=== PATIENT | male | born 1945 | race Caucasian/White ===

== ENCOUNTER → 2017-09-10 | Outpatient (CLI) | payer OTHER ==
[~2017-09-10] MED LIST: CIPR-255 PO; FLM4 PO; OMEP10CA2 PO
[2017-09-10 17:31] LABS: BASO % 0.2 %; BASO ABS # 0.02 K/uL (0-0.2); COMPLETE YES; EOS % 1.8 %; HEMATOCRIT 39.3 % (42-52); IG% 0.1 %; LYMPH % 22.1 %; LYMPH ABS # 1.88 K/uL (1.2-3.4); MEAN CELL VOLUME 87.1 fL (80-100); MEAN CORPUSCULAR HEMOGLOBIN 30.8 pg (25-34); MEAN CORPUSCULAR HGB CONC 35.4 g/dl (32-36); MEAN PLATELET VOLUME 9.1 fL (7.4-10.4); MONO % 7.9 %; NEUT % 67.9 %; PLATELET COUNT 299 K/uL (130-400); RED BLOOD COUNT 4.51 M/uL (4.7-6.1); WHITE BLOOD COUNT 8.51 K/uL (4.8-10.8)
[2017-09-10 17:51] LABS: ALT/SGPT 75 U/L (12-78); AST/SGOT 51 U/L (15-37); BLOOD UREA NITROGEN 15 mg/dl (7-18); BUN/CREATININE RATIO 19.5 (10-20); CALCIUM 8.7 mg/dl (8.5-10.1); CARBON DIOXIDE 27 mmol/L (21-32); CHLORIDE 104 mmol/L (98-107); CREATININE 0.76 mg/dl (0.60-1.40); GLUCOSE 105 mg/dl (70-99); POTASSIUM 3.9 mmol/L (3.5-5.1); SODIUM 138 mmol/L (136-145)
[2017-09-10 18:08] LABS: ALB/GLOB RATIO 0.8 (0.9-2); ALKALINE PHOSPHATASE 387 U/L (45-117); CHOLESTEROL 162 mg/dl (0-200); CHOLESTEROL/HDL RATIO 4.8; HDL CHOLESTEROL 34 mg/dl; LDL CHOLESTEROL CALCULATED 102 mg/dl; TRIGLYCERIDES 132 mg/dl (0-150); VERY LOW DENSITY LIPOPROT CALC 26 mg/dl
== END | disposition home or self-care (01) ==
LOC: C.LAB1850 17:15
PROVIDERS: ATTEND Internal Medicine
DX: R97.20 Elevated prostate specific antigen [PSA] (principal); I10 Essential (primary) hypertension; Z11.59 Encounter for screening for other viral diseases; E78.1 Pure hyperglyceridemia

== ENCOUNTER → 2017-09-15 | Outpatient (CLI) | payer OTHER ==
--- NOTE | 2017-09-15 11:52 | DIAGNOSTIC IMAGING REPORT ---
GALLBLADDER-ABD LIMITED HISTORY: 72 years-old Male R74.8 Abnormal liver [id number] COMPARISON: CT 04/02/2015 TECHNIQUE: Multiple real-time sonographic images of the abdominal right upper quadrant were obtained assessing grayscale appearance and color flow. FINDINGS: The pancreas is mostly obscured by bowel gas with imaged pancreatic head appearing unremarkable. There has been interval development of innumerable hepatic masses throughout the right left hepatic lobes measuring up to 5.9 x 4.8 cm. These are hypoechoic with ill-defined margins and internal vascularity. No large volume ascites identified. No intrahepatic biliary ductal dilation. The common bile duct measures 0.8 cm. Gallbladder is unremarkable without shadowing cholelithiasis, color wall thickening or pericholecystic fluid collections. Cysts of the right kidney are seen, largest of which measures up to 6.9 cm containing thin internal septations. Cyst of the right kidney were seen measuring up to 6.1 cm on study dated 04/02/2015. No right-sided hydronephrosis. IMPRESSION: 1. Development of innumerable hepatic masses throughout the liver compatible with metastatic disease from unknown primary. No intrahepatic biliary ductal dilation. 2. Unremarkable sonographic appearance of the gallbladder without cholelithiasis or gallbladder wall thickening. 3. Mildly complex right renal cysts. The above report was generated using voice recognition software. It may contain grammatical, syntax or spelling errors. Electronically signed by: Kris Rodriguez M.D. 09/15/2017 11:50 AM Dictated Date/Time: 09/15/2017 11:45 AM
[2017-09-15 14:26] LABS: LYME DISEASE AB IGG NEG (NEG); LYME DISEASE AB IGM NEG (NEG)
== END | disposition home or self-care (01) ==
LOC: C.ULTR 11:02
PROVIDERS: ATTEND Internal Medicine
DX: R74.8 Abnormal levels of other serum enzymes (principal); R51 Headache; K76.89 Other specified diseases of liver

== ENCOUNTER → 2017-10-13 | Outpatient (CLI) | payer OTHER ==
[~2017-10-13] MED LIST changes: -CIPR-255 PO; -FLM4 PO; -OMEP10CA2 PO; +TMPOPS15 OP
--- NOTE | 2017-10-13 14:13 | DIAGNOSTIC IMAGING REPORT ---
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 Following the standard induction phase, PET/CT scanning is performed from the skull base to the upper thigh region. Within the neck, there is no pathologic soft tissue activity. Within the thorax, there are multiple FDG avid mediastinal and hilar lymph nodes. The largest node is a 1 cm lower right paratracheal lymph node. These nodes demonstrate SUV maximum measuring up to 5. There are no FDG avid parenchymal nodules the tiny pulmonary nodules described in the prior CT scan are too small to resolve with PET imaging.. There is a small left pleural effusion. The liver is diffusely replaced by innumerable hepatic masses. These are intensely FDG avid with SUV maximum of approximately 10. There are no FDG avid adrenal lesions. There are no FDG avid splenic lesions. There are bilateral renal cysts. There is an FDG avid left iliac lymph node measuring 14 mm. This has FDG maximum of 4.3. There are FDG avid right iliac lymph nodes measuring 2 cm in aggregate. These have an SUV maximum of 4.4. There is an indwelling Cuevas catheter present. The prostate is significantly enlarged measuring 5.7 cm. There is an FDG avid focus in the 7:00 position peripherally. There is no corresponding CT abnormality. There are innumerable FDG avid blastic lesions throughout the skeleton. IMPRESSION: 1. Diffuse intensely FDG avid hepatic metastatic disease. 2. FDG avid mediastinal and hilar lymph nodes which are at the upper limits of normal in size 3. FDG avid bilateral iliac adenopathy 4. FDG avid focus within the prostate at 7:00 position peripherally 5. Multifocal FDG avid blastic skeletal metastasis Electronically signed by: Mikie Villar M.D. 10/13/2017 2:12 PM Dictated Date/Time: 10/13/2017 1:57 PM
== END | disposition home or self-care (01) ==
LOC: C.PET 10:58
PROVIDERS: ATTEND Internal Medicine Hematology & Oncology
DX: C80.1 Malignant (primary) neoplasm, unspecified (principal)

== ENCOUNTER → 2017-11-05 | Day surgery (SDC) | payer OTHER ==
[2017-10-28 14:40] VITALS: Ht 168.9 cm; Wt 72.7 kg
[~2017-11-05] VITALS: Ht 168.9 cm; Wt 72.7 kg
[~2017-11-05] MED LIST changes: +ENAL10TA88 PO; +GLAUCOMA EYE DROPS; +LIDOCAINE HCL 2% 2 ML VIAL (20MG/ML) ONE; +MIDAZOLAM HCL 1 MG/ML 2ML VIAL ONE; +ONDANSETRON INJ 2 MG/ML 2 ML VIAL ONE; +PROPOFOL IV EMULSION 10 MG/ML 20 ML VIAL IV ONE; +PROSTATE MEDICATION PO; -TMPOPS15 OP
--- NOTE | 2017-11-05 14:21 | Endo History and Physical ---
History & Physical Date of Service: Nov 05, 2017. Chief Complaint: BLOOD IN STOOL Referring Physician: DR. LEES History of Present Illness For colonoscopy Past Medical History Hypertension Past Surgical History Hx Cardiac Surgery: No Hx Internal Defibrillator: No Hx Pacemaker: No Hx Abdominal Surgery: No Hx of Implantable Prosthesis: No Hx Cancer Surgery: Yes (PROSTATE BIOPSY) Hx Thoracic Surgery: No Hx Orthopedic: No Hx Urinary Tract Surgery: No Family History None Social History Smoking Status: Never Smoker Hx Substance Use: No Hx Alcohol Use: No Allergies Coded Allergies: No Known Allergies (Verified , 11/05/17) Current Medications Reported Home Medications Medications Dose Route/Sig Max Daily Dose Days Date Category [Prostate Medication] 1 Tab PO QPM 10/28/17 Reported [Glaucoma Eye Drops] 1 Drop UD 10/28/17 Reported Vasotec (Enalapril Maleate) 10 Mg Tab 10 Mg PO DAILY PRN 10/28/17 Reported Vital Signs Weight (Kilograms): 72.73 Height (Feet): 5 Height (Inches): 6.5 Date Time Temp Pulse Resp B/P (MAP) Pulse Ox O2 Delivery O2 Flow Rate FiO2 11/05/17 13:45 37 73 16 187/105 (132) 94 Room Air Physical Exam General Appearance: WD/WN Respiratory/Chest: Respiratory effort: no dyspnea Cardiovascular: Heart Auscultation: RRR Abdomen: Inspection & Palpation: soft (heme positive stool for colonoscopy) Assessment and Plan blood in stool for colonoscopy
--- NOTE | 2017-11-05 14:44 | Discharge Instructions ---
Endoscopy Patient Instructions Date / Procedure(s) Performed Nov 05, 2017. Colonoscopy Allergy Information Coded Allergies: No Known Allergies (Verified , 11/05/17) Discharge Date / Findings Nov 05, 2017. polyp, prostate nodule Medication Instructions Restart Stopped Medication(s): resume meds Reported Home Medications Medications Dose Route/Sig Max Daily Dose Days Date Category [Prostate Medication] 1 Tab PO QPM 10/28/17 Reported [Glaucoma Eye Drops] 1 Drop UD 10/28/17 Reported Vasotec (Enalapril Maleate) 10 Mg Tab 10 Mg PO DAILY PRN 10/28/17 Reported Provider Instructions Activity Restrictions - No exercising or heavy lifting for 24 hours. - Do not drink alcohol the day of the procedure. - Do not drive a car or operate machinery until the day after the procedure. - Do not make any important decisions or sign important papers in 24 hours after the procedure. Following Day: - Return to full activity which may include returning to work/school. Diet Start your diet with liquids and light foods (jello, soup, juice, toast). Then eat your usual diet if not nauseated. Treatment For Common After Affects For mild abdominal pain, bloating, or excessive gas: - Rest - Eat lightly - Lie on right side Follow-Up Information Follow-up with DR. LEES as scheduled Anesthesia Information What You Should Know You have had a procedure that required some medicine to reduce anxiety and discomfort. This treatment is called moderate sedation. After receiving the treatment, you may be sleepy, but you will be able to breathe on your own. The effects of the treatment may last for several hours. Follow these instructions along with Activity/Diet recommendations noted above: * Do NOT do anything where dizziness or clumsiness would be dangerous. * Rest quietly at home today, then you can be up and about tomorrow. * Have a responsible person stay with you the rest of today. * You may have had an I.V. today. If so, you may take the dressing off later today. Recommendations Call your doctor if: * Trouble breathing * Continuous vomiting for more than 24 hours * Temperature above 101 degrees * Severe abdominal pain or bloating * Pain not relieved by pain medicine ordered * There is increased drainage or redness from any incision * A large amount of rectal bleeding greater than 2-3 tablespoons. (If you had a polyp/s removed or have hemorrhoids, a small amount of blood - from the rectum is to be expected.) * You have any unanswered questions or concerns. IN THE EVENT OF A SERIOUS EMERGENCY, GO TO THE NEAREST EMERGENCY ROOM Your discharge instructions were prepared by provider César Albright. Patient Instructions Signature Page Adolfo Eran Patient (or Guardian) Signature/Date: I have read and understand the instructions given to me by my caregivers. Caregiver/RN/Doctor Signature/Date: The above-named patient and/or guardian has received patient instructions on this date. + Original Patient Signature Page (only) stays with chart. Please make copy for patient.
--- NOTE | 2017-11-05 14:47 | GI REPORT ---
Procedure Date: 11/05/2017 2:26 PM Procedure: Colonoscopy Indications: Heme positive stool Medicines: Midazolam 2 mg IV, Zofran 4 mg IV, Propofol total dose 150 mg IV, Lidocaine 60 mg IV Complications: No immediate complications. Estimated Blood Loss: Estimated blood loss: none. Procedure: Pre-Anesthesia Assessment: - Prior to the procedure, a History and Physical was performed, and patient medications, allergies and sensitivities were reviewed. The patient's tolerance of previous anesthesia was reviewed. - The risks and benefits of the procedure and the sedation options and risks were discussed with the patient. All questions were answered and informed consent was obtained. After I obtained informed consent, the scope was passed under direct vision. Throughout the procedure, the patient's blood pressure, pulse, and oxygen saturations were monitored continuously. The scope was introduced through the anus and advanced to the cecum, identified by appendiceal orifice and ileocecal valve. The colonoscopy was somewhat difficult due to poor bowel prep. Successful completion of the procedure was aided by applying abdominal pressure. The patient tolerated the procedure well. The quality of the bowel preparation was poor. Findings: A 12 mm polyp was found in the distal descending colon. The polyp was pedunculated. The polyp was removed with a hot snare. Resection and retrieval were complete. Estimated blood loss: none. The digital rectal exam findings include prostate nodule. Impression: - Preparation of the colon was poor. - One 12 mm polyp in the distal descending colon, removed with a hot snare. Resected and retrieved. - A prostate nodule found on digital rectal exam. Recommendation: - Discharge patient to home (ambulatory). - Continue present medications. - Await pathology results. - Return to primary care physician at the next available appointment. César Albright M.D. César Albright MD 11/05/2017 2:47:01 PM This report has been signed electronically. Note Initiated On: 11/05/2017 2:26 PM I attest to the content of the Intraoperative Record and orders documented therein, exceptions below
[2017-11-05 15:20] VITALS: BP 151/95; PULSE 73; O2SAT 94
--- NOTE | 2017-11-05 15:29 | Anesthesiology Progress Note ---
Anesthesia Post Op Note Date & Time Nov 05, 2017 at 15:29 Vital Signs Pain Intensity: 0 Vital Signs Past 12 Hours Date Time Temp Pulse Resp B/P (MAP) Pulse Ox O2 Delivery O2 Flow Rate FiO2 11/05/17 15:20 73 18 151/95 (113) 94 Room Air 11/05/17 15:05 87 16 142/98 (113) 93 Room Air 11/05/17 14:50 71 16 147/90 (109) 97 Nasal Cannula 2 11/05/17 13:45 37 73 16 187/105 (132) 94 Room Air Notes Mental Status: alert / awake / arousable, participated in evaluation Pt Amnestic to Procedure: Yes Nausea / Vomiting: adequately controlled Pain: adequately controlled Airway Patency, RR, SpO2: stable & adequate BP & HR: stable & adequate Hydration State: stable & adequate Anesthetic Complications: no major complications apparent
== END | disposition home or self-care (01) ==
LOC: C.GI 13:14
PROVIDERS: ATTEND Internal Medicine Gastroenterology
DX: K92.1 Melena (principal); D12.4 Benign neoplasm of descending colon; N40.2 Nodular prostate without lower urinary tract symptoms; I10 Essential (primary) hypertension; N40.0 Benign prostatic hyperplasia without lower urinary tract symptoms; Z85.46 Personal history of malignant neoplasm of prostate; Z85.05 Personal history of malignant neoplasm of liver; Z85.118 Personal history of other malignant neoplasm of bronchus and lung; H40.9 Unspecified glaucoma

== ENCOUNTER → 2017-12-07 | Outpatient (CLI) | payer OTHER ==
[~2017-12-07] MED LIST changes: +BICA50TA2 PO; -LIDOCAINE HCL 2% 2 ML VIAL (20MG/ML) ONE; -MIDAZOLAM HCL 1 MG/ML 2ML VIAL ONE; -ONDANSETRON INJ 2 MG/ML 2 ML VIAL ONE; -PROPOFOL IV EMULSION 10 MG/ML 20 ML VIAL IV ONE; +TMPOPS15 OPB
== END | disposition home or self-care (01) ==
LOC: C.LABSPEC 17:09
PROVIDERS: ATTEND Urology
DX: N40.1 Benign prostatic hyperplasia with lower urinary tract symptoms (principal)

== ENCOUNTER 2017-12-21 07:02 | Inpatient (IN) | payer OTHER ==
[2017-12-07 08:59] VITALS: BMI 25.0
--- NOTE | 2017-12-07 09:36 | PAT Medication Instructions ---
Service Date Dec 07, 2017. Current Home Medication List Bicalutamide (Casodex), 50 MG PO QPM Timolol Maleate (Timolol 0.5% Oph Soln 15 Ml), 1 DROP OPB BID Medication Instructions For Your Scheduled Surgery - Take the following medications the morning of surgery with a sip of water: Timolol Maleate (Timolol 0.5% Oph Soln 15 Ml), 1 DROP OPB BID - Take the following medications as scheduled the night before surgery: Bicalutamide (Casodex), 50 MG PO QPM Timolol Maleate (Timolol 0.5% Oph Soln 15 Ml), 1 DROP OPB BID If you have any questions please call us at [phone] or [phone] or [phone]
[2017-12-07 10:24] LABS: BASO % 0.4 %; BASO ABS # 0.03 K/uL (0-0.2); EOS % 3.8 %; EOS ABS # 0.26 K/uL (0-0.5); HEMATOCRIT 40.2 % (42-52); HEMOGLOBIN 14.2 g/dL (14.0-18.0); IG# 0.01 K/uL (0.00-0.02); LYMPH ABS # 1.59 K/uL (1.2-3.4); MEAN CORPUSCULAR HGB CONC 35.3 g/dl (32-36); MEAN PLATELET VOLUME 9.8 fL (7.4-10.4); MONO % 9.3 %; MONO ABS # 0.64 K/uL (0.11-0.59); NEUT % 63.4 %; NEUT ABS # 4.37 K/uL (1.4-6.5); PLATELET COUNT 224 K/uL (130-400); RED CELL DISTRIBUTION WIDTH SD 43.4 fL (36.4-46.3)
[2017-12-07 11:34] LABS: CALCIUM 9.3 mg/dl (8.5-10.1); CREATININE 0.85 mg/dl (0.60-1.40); POTASSIUM 3.9 mmol/L (3.5-5.1)
[2017-12-21] VITALS (15 sets, daily range): BP systolic 108–160; BP diastolic 67–95; PULSE 83–124; TEMP 36.3–39.4; O2SAT 92–98; Ht 170.2 cm; Wt 75.1 kg
[~2017-12-21] VITALS: Ht 170.2 cm; Wt 75.1 kg
[~2017-12-21 07:02] MED LIST changes: +CEFAZOLIN 2000MG IV PUSH 10 ML IV SCH; -ENAL10TA88 PO; -GLAUCOMA EYE DROPS; +LACTATED RINGER'S 1000ML 1,000 ML IV SCH; -PROSTATE MEDICATION PO
[2017-12-21] MEDS ORDERED: ONDANSETRON INJ 2 MG/ML 2 ML VIAL IV PRN ×2 (07:15→12:45)
[2017-12-21] MEDS ORDERED: ATROPINE SULFATE 0.1 MG/ML 5ML SYR IV PRN (07:15)
[2017-12-21] MEDS ORDERED: FENTANYL CITRATE INJ 50 MCG/1 ML 2 ML VIAL IV PRN (07:15)
[2017-12-21] MEDS ORDERED: EpHEDrine SULFATE INJ 50 MG/ML AMP IV PRN (07:15)
[2017-12-21] MEDS ORDERED: DRGTP12 (07:19)
[2017-12-21] MEDS ORDERED: DXM4 PO (07:25)
[2017-12-21] MEDS ORDERED: PRED-301 PO (07:25)
[2017-12-21] MEDS ORDERED: ONDA8TAB6 PO (07:25)
[2017-12-21] MEDS ORDERED: FENTANYL CITRATE INJ 50 MCG/1 ML 2 ML VIAL ONE (07:50)
[2017-12-21] MEDS ORDERED: LIDOCAINE HCL 2% 2 ML VIAL (20MG/ML) ONE (07:50)
[2017-12-21] MEDS ORDERED: PROPOFOL IV EMULSION 10 MG/ML 20 ML VIAL IV ONE (07:50)
[2017-12-21] MEDS ORDERED: ONDANSETRON INJ 2 MG/ML 2 ML VIAL ONE (07:50)
[2017-12-21] MEDS ORDERED: MIDAZOLAM HCL 1 MG/ML 2ML VIAL ONE (07:51)
[2017-12-21 08:05] LABS: HEMATOCRIT 37.7 % (42-52); HEMOGLOBIN 13.2 g/dL (14.0-18.0); MEAN CELL VOLUME 84.9 fL (80-100); MEAN CORPUSCULAR HEMOGLOBIN 29.7 pg (25-34); MEAN PLATELET VOLUME 9.4 fL (7.4-10.4); PLATELET COUNT 260 K/uL (130-400); RED CELL DISTRIBUTION WIDTH CV 14.2 % (11.5-14.5); RED CELL DISTRIBUTION WIDTH SD 44.1 fL (36.4-46.3); WHITE BLOOD COUNT 1.91 K/uL (4.8-10.8)
--- NOTE | 2017-12-21 09:05 | History & Physical Bridge Note ---
H&P Re-Evaluation Bridge Note: I have examined the patient, reviewed the History & Physical and in the interval since the performance of the History & Physical I have noted the following changes of clinical significance: No changes noted
[2017-12-21] MEDS ORDERED: PHEN-775 PO (09:08)
[2017-12-21] MEDS ORDERED: SULF800T23 PO (09:08)
[2017-12-21] MEDS ORDERED: DTR/5 PO (09:08)
--- NOTE | 2017-12-21 09:10 | Discharge Instructions ---
Discharge Instructions Date of Service Dec 21, 2017. Admission Reason for Admission: Benign Prostatic Hypertrophy Discharge Discharge Diagnosis / Problem: Obstructive Uropathy, Bladder Stone, Prostate Cancer Discharge Goals Goal(s): Decrease discomfort, Improve function Activity Recommendations Activity Limitations: resume your previous activity Lifting Limitations: gradually increase as tolerated Exercise/Sports Limitations: gradually increase as tolerated Shower/Bathe: no limitations . Instructions / Follow-Up Instructions / Follow-Up Home with leos. Monitor output. May have blood or some pelvic discomfort. Call if any fevers or chills. Antibiotics sent to pharmacy as well as medications for urinary discomfort. Current Hospital Diet Patient's current hospital diet: Discharge Diet Recommended Diet: Regular Diet Procedures Procedures Performed: Cystoscopy with Cystolitholopaxy Pending Studies Studies pending at discharge: no Medical Emergencies . Who to Call and When: Medical Emergencies: If at any time you feel your situation is an emergency, please call 911 immediately. . Non-Emergent Contact Non-Emergency issues call your: Primary Care Provider, Urologist Call Non-Emergent contact if: you have a fever, temperature is above 101, temperature is above 101.5, your pain is not controlled, your pain is worsening . . "Provider Documentation" section prepared by Joseph Hudson,. . VTE Core Measure Inpt VTE Proph given/why not?: Ludy Taylor, [facility]INA[facility]
[2017-12-21] MEDS ORDERED: OXYCODONE/ACETAMINOPHEN 7.5-325 TAB PO PRN (09:15)
[2017-12-21] MEDS ORDERED: CONRAY 30% 150ML BOTTLE ONE (09:20)
[2017-12-21] MEDS ORDERED: BELLADONNA/OPIUM SUPP 60 MG SUPP PR ONE (09:48)
[2017-12-21] MEDS ORDERED: PHENYLEPHRINE 100MCG/ML 5ML SYR ONE (09:49)
[2017-12-21] MEDS ORDERED: GENTAMICIN SULFATE 40 MG/ML 2 ML VIAL ONE (10:10)
[2017-12-21] MEDS ORDERED: EpHEDrine SULFATE 50MG/5ML SYR ONE (11:46)
--- NOTE | 2017-12-21 12:19 | [facility] Post Operative Brief Note ---
Immediate Operative Summary Operative Date Dec 21, 2017. 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 Hudson Stna Surgeon(s) none Estimated Blood Loss 40ML Findings Consistent with Post-Op Diagnosis Specimens A. Bladder Stones- For Chemical Analysis B. Bladder Chips for path Drains [address] Anesthesia Type General Complication(s) none Disposition Accompanied Pt To Recover: no Disposition: Recovery Room / PACU
--- NOTE | 2017-12-21 12:35 | [facility] Operative Report ---
Operative Report Operative Date Dec 21, 2017. Pre-Operative Diagnosis Prostate cancer. Bladder Stone. Obstructive Uropathy Post-Operative Diagnosis Same Procedure(s) Performed Cystoscopy with Cystolitholopaxy, Button Vaporization TURP and enucleation of prostate. Surgeon Tristan Estimated Blood Loss Minimal Findings Bladder stone and debris within base of bladder. Specimens 1 Stone for analysis 2 Prostate Chips for pathology Drains [address] Anesthesia General Complication(s) None Disposition Recovery Room / PACU Indications Prostate cancer with mets and deconditioning with obstructive uropathy. Cuevas in place. Found to have bladder stones on cystoscopy. Description of Procedure Patient was consented and brought back to the operating room. Patient was placed under anesthesia in the supine position and moved to the dorsal lithotomy position. Patient was prepped and draped in the regular sterile fashion. A time out was completed. A 30 degree Cystoscope was placed into the bladder and the entire bladder was examined. The UO's were identified. Patient was noted to have Significant severe lateral enlargement of prostate. A significant median lobe also limited visualization below the bladder neck. The stone and large amount of debris was noted in the bladder base. Multiple areas of bullous edema and irritation were noted. The stones were successfully destroyed and irrigated. All debris was irrigated. The entire area was inspected. No other major areas of concern. Due to the severe obstruction noted from the trilobar obstruction of the prostate, a TURP bipolar button was selected and resection/vaporization was initiated. The 5-7 oclock position was full vaporized down to the capsule from bladder neck to veru. The large median lobe was resected in this process. Starting at the 1 o'clock position on the left and 11 oclock position of the left resection and vaporization was taken down the lateral border. A significant amount of tissues was vaporized. This was taken to capsule. All bleeding was controlled with electrocautery. The entire bed was examined. Distal tissue was resected/vaporized to finalize the channel. Care was taken to monitor the landmarks in order to avoid any damage to sphincter or bladder structures. The bed was found to be clear of bleeding or redundant tissues. The bladder was irrigated. Enucleated pieces of prostate were sent for analysis. The bladder was emptied and irrigated. The scope was removed with the bladder partially full. A [address] Cuevas was placed and set to drainage with continuous irrigation. The patient was cleaned, aroused from anesthesia, and transferred to the pacu in stable condition having tolerated the procedure well with no complications. I was present and participated in all aspects of the procedure. The patient will be monitored in the PACU until transferred. Patient will be observed overnight with continuous irrigation. I attest to the content of the Intraoperative Record and any orders documented therein. Any exceptions are noted below.
[2017-12-21] MEDS ORDERED: OXYCODONE/ACETAMINOPHEN 5-325 TAB PO PRN (12:45)
[2017-12-21] MEDS ORDERED: PHENAZOPYRIDINE HCL 200 MG TAB PO PRN (12:45)
--- NOTE | 2017-12-21 13:12 | Anesthesiology Progress Note ---
Anesthesia Post Op Note Date & Time Dec 21, 2017 at 13:12 Vital Signs Pain Intensity: 0 Vital Signs Past 12 Hours Date Time Temp Pulse Resp B/P (MAP) Pulse Ox O2 Delivery O2 Flow Rate FiO2 12/21/17 12:56 123/71 (80) 12/21/17 12:55 83 15 99 12/21/17 12:55 83 15 12/21/17 12:51 NIBP 12/21/17 12:50 81 13 98 12/21/17 12:50 82 13 115/74 (80) 12/21/17 12:46 117/70 (82) 12/21/17 12:45 82 14 98 12/21/17 12:45 83 14 12/21/17 12:41 107/75 (87) 12/21/17 12:40 80 15 97 12/21/17 12:40 82 15 12/21/17 12:30 36.4 81 20 137/82 98 Mask 10 12/21/17 07:28 36.8 90 20 160/94 (116) 95 Room Air Notes Mental Status: alert / awake / arousable, participated in evaluation Pt Amnestic to Procedure: Yes Nausea / Vomiting: adequately controlled Pain: adequately controlled Airway Patency, RR, SpO2: stable & adequate BP & HR: stable & adequate Hydration State: stable & adequate Anesthetic Complications: no major complications apparent
[2017-12-21 13:41] LABS: HEMATOCRIT 34.9 % (42-52); HEMOGLOBIN 12.1 g/dL (14.0-18.0); MEAN CELL VOLUME 85.3 fL (80-100); MEAN CORPUSCULAR HEMOGLOBIN 29.6 pg (25-34); MEAN CORPUSCULAR HGB CONC 34.7 g/dl (32-36); MEAN PLATELET VOLUME 9.3 fL (7.4-10.4); PLATELET COUNT 229 K/uL (130-400); RED CELL DISTRIBUTION WIDTH CV 14.2 % (11.5-14.5); RED CELL DISTRIBUTION WIDTH SD 44.5 fL (36.4-46.3); WHITE BLOOD COUNT 1.92 K/uL (4.8-10.8)
[2017-12-21 13:56] LABS: ALBUMIN 2.6 gm/dl (3.4-5.0); CALCIUM 7.9 mg/dl (8.5-10.1); CREATININE 0.78 mg/dl (0.60-1.40); POTASSIUM 4.1 mmol/L (3.5-5.1)
[2017-12-21 13:58] LABS: TOTAL PROTEIN 5.6 gm/dl (6.4-8.2)
[2017-12-21] MEDS ORDERED: BELLADONNA/OPIUM SUPP 60 MG SUPP PR SCH (14:00)
[2017-12-21] MEDS ORDERED: IV FLUIDS COMPLETED PRN (14:15)
[2017-12-21] MEDS ORDERED: CIPROFLOXACIN / D5W 400 MG in PREMIXED IN D5W 0 ML IV SCH (15:00)
[2017-12-21] MEDS: SODIUM CHLORIDE 0.9% 1000ML 1,000 ML IV SCH (16:55)
[2017-12-21] MEDS ORDERED: ACETAMINOPHEN 325 MG TAB ONE (20:57)
[2017-12-21] MEDS ORDERED: NURSING VERBAL MED ORDER ONE ×4 (21:00→22:45)
[2017-12-21] MEDS: DOCUSATE SODIUM 100 MG CAP PO SCH (21:06)
[2017-12-21] MEDS: MoRPHine SULFATE 2 MG/ML CARP IV PRN (21:07)
[2017-12-21] MEDS ORDERED: ACETAMINOPHEN 325 MG TAB PO PRN (21:45)
[2017-12-21] MEDS ORDERED: CEFTRIAXONE SOD INJ 1000 MG in DEXTROSE 5% 50ML IV SCH (22:00)
[2017-12-21] MEDS ORDERED: KETOROLAC TROMETHAMINE 15 MG/ML VIAL ONE (22:36)
[2017-12-21] MEDS ORDERED: KETOROLAC TROMETHAMINE 15 MG/ML VIAL IV. STA (22:45)
[2017-12-21] MEDS ORDERED: CEFEPIME IV 2,000 MG in SYRINGE 7.5 ML IV SCH (23:00)
[2017-12-21] MEDS ORDERED: PIPERACILL/TAZOBAC CONSULT ACTIVE PRN (23:15)
[2017-12-21] MEDS ORDERED: VANCOMYCIN CONSULT ACTIVE PRN (23:15)
[2017-12-21] MEDS ORDERED: BICALUTAMIDE 50 MG TAB PO SCH (23:23)
[2017-12-21] MEDS ORDERED: OXYBUTYNIN CHLORIDE 5 MG TAB PO PRN (23:30)
--- NOTE | 2017-12-21 23:39 | Medical Consult ---
Consultation Date of Consultation: Dec 21, 2017. Attending Physician: Joseph Hudson D.O. 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 The patient had an uneventful surgery and post op the patient was found to be febrile > 38C. A consult was placed for hospitalist at 2310 for fever and neutropenia. To note the patient's original CBC was drawn at 1344 which reflected neutropenia. Patient was previously afebrile. There is a language barrier ( speaks hong konger) so unable to obtain a full ROS however denies any pain or discomfort at this time. To note the patient was originally found to have an elevated PSA in 2012/ 2013 and denied follow up with urology per clinic notes. As the patient had elevated LFT on recent blood work a PSA was completed and concerning for malignancy. Confirmation of malignancy on prostate biopsy Oct 06 2017 and patient was started on Casodex. There has been improvement in PSA numbers with this medication. On a recent cystoscopy a stone was noted to be lodged in bladder outlet and it was decided patient would undergo the above surgery. Past Medical/Surgical History Adenocarcinoma of prostate with met GERD glaucoma Family History Patient reports no known family medical history. Social History Smoking Status: Never Smoker Smokeless Tobacco Use: No Alcohol Use: none Drug Use: none Marital Status: Housing Status: lives with family Occupation Status: unemployed Allergies Coded Allergies: Ibuprofen (Verified Allergy, Mild, rash on neck, 12/21/17) Current Inpatient Medications Current Inpatient Medications Medications (Trade) Dose Ordered Sig/Mandy Route Start Time Stop Time Status Last Admin Dose Admin Oxycodone/ Acetaminophen (Percocet 7.5-325MG Tab) 2 tab Q4H PRN PO 12/21/17 09:15 01/04/18 09:14 Phenazopyridine HCl (Pyridium Tab) 200 mg Q8H PRN PO 12/21/17 12:45 01/20/18 12:44 Sodium Chloride 1,000 ml @ 100 mls/hr Q10H IV 12/21/17 15:00 01/20/18 14:59 12/21/17 16:55 100 MLS/HR Ciprofloxacin/ Dextrose 400 mg/ Prmx 0 ml @ 100 mls/hr Q12H IV 12/21/17 15:00 12/22/17 14:59 12/21/17 17:12 100 MLS/HR Morphine Sulfate (MoRPHine SULFATE INJ) 2 mg Q3H PRN IV 12/21/17 12:45 01/04/18 12:44 12/21/17 21:07 2 MG Oxycodone/ Acetaminophen (Percocet 5-325mg Tab) 1 tab Q4H PRN PO 12/21/17 12:45 01/04/18 12:44 Ondansetron HCl (Zofran Inj) 4 mg Q6H PRN IV 12/21/17 12:45 01/20/18 12:44 Docusate Sodium (coLACE CAP) 100 mg BID PO 12/21/17 21:00 01/20/18 20:59 12/21/17 21:06 100 MG Miscellaneous (Iv Fluids Completed) 1 ea PRN PRN N/A 12/21/17 14:15 12/21/18 14:14 Acetaminophen (Tylenol Tab) 650 mg Q6H PRN PO 12/21/17 21:45 01/20/18 21:44 Piperacillin Sod/ Tazobactam Sod 3.375 gm/Dextrose 115 ml @ 28.75 mls/ hr Q12 IV 12/22/17 09:00 12/24/17 08:59 UNV Miscellaneous Information (Consult) 1 ea UD PRN N/A 12/21/17 23:15 01/20/18 23:14 UNV Vancomycin HCl 1000 mg/Sodium Chloride 270 ml @ 125 mls/hr Q12 IV 12/22/17 09:00 12/24/17 08:59 UNV Miscellaneous Information (Consult) 1 ea UD PRN N/A 12/21/17 23:15 01/20/18 23:14 UNV Bicalutamide (Casodex Tab) 50 mg QPM PO 12/21/17 23:23 01/20/18 23:22 UNV Dexamethasone (Decadron Tab) 8 mg BID PO 12/21/17 23:23 01/20/18 23:22 UNV Fentanyl (Duragesic Patch) 12 mcg DAILY TD 12/22/17 09:00 01/05/18 08:59 UNV Oxybutynin Chloride (Ditropan Tab) 5 mg Q8 PRN PO 12/21/17 23:30 01/20/18 23:29 UNV Prednisone (PredniSONE TAB) 5 mg BID PO 12/21/17 23:23 01/20/18 23:22 UNV Timolol Maleate (Timoptic 0.5% Oph Soln) 1 drops BID OPB 12/21/17 23:23 01/20/18 23:22 UNV Review of Systems Unable to obtain secondary to language barrier Physical Exam Date Time Temp Pulse Resp B/P (MAP) Pulse Ox O2 Delivery O2 Flow Rate FiO2 12/21/17 22:21 39.4 12/21/17 22:14 39.2 12/21/17 21:44 39.2 12/21/17 20:40 38.2 12/21/17 19:15 36.9 93 20 158/95 (116) 93 Room Air 12/21/17 19:07 37.1 93 18 159/83 (108) 92 Room Air 12/21/17 17:26 36.5 84 18 133/80 (97) 92 Room Air 12/21/17 16:33 36.8 86 18 144/83 (103) 96 Nasal Cannula 1.5 12/21/17 15:55 97 Nasal Cannula 2.0 12/21/17 15:30 83 16 135/85 (102) 96 Nasal Cannula 2.0 12/21/17 15:23 36.6 85 18 126/75 (92) 97 Nasal Cannula 2.0 12/21/17 15:00 36.7 96 16 134/74 (94) 98 Nasal Cannula 2.0 12/21/17 14:00 36.3 86 18 132/81 (98) 97 Nasal Cannula 2.0 12/21/17 14:00 97 Nasal Cannula 2.0 12/21/17 13:42 79 16 12/21/17 13:42 79 16 97 12/21/17 13:41 132/84 12/21/17 13:37 80 13 12/21/17 13:37 79 13 97 12/21/17 13:36 145/86 12/21/17 13:32 82 15 12/21/17 13:32 81 15 98 12/21/17 13:31 137/85 12/21/17 13:27 79 21 97 12/21/17 13:27 79 21 12/21/17 13:26 143/90 12/21/17 13:22 79 19 96 12/21/17 13:22 80 19 12/21/17 13:21 36.2 127/88 12/21/17 13:20 83 18 96 12/21/17 13:20 84 18 12/21/17 13:16 132/82 12/21/17 13:15 80 15 97 12/21/17 13:15 81 15 12/21/17 13:11 139/86 12/21/17 13:10 87 17 12/21/17 13:10 97 17 98 12/21/17 13:06 111/71 12/21/17 13:05 81 15 12/21/17 13:05 81 15 97 12/21/17 13:01 118/73 12/21/17 13:00 85 14 12/21/17 13:00 84 14 99 12/21/17 12:56 123/71 12/21/17 12:56 123/71 (80) 12/21/17 12:55 83 15 99 12/21/17 12:55 83 15 12/21/17 12:55 83 15 12/21/17 12:55 83 15 99 12/21/17 12:51 NIBP 12/21/17 12:51 12/21/17 12:50 82 13 12/21/17 12:50 81 13 98 12/21/17 12:50 81 13 98 12/21/17 12:50 82 13 115/74 (80) 12/21/17 12:46 117/70 12/21/17 12:46 117/70 (82) 12/21/17 12:45 82 14 98 12/21/17 12:45 83 14 12/21/17 12:45 83 14 12/21/17 12:45 82 14 98 12/21/17 12:41 107/75 12/21/17 12:41 107/75 (87) 12/21/17 12:40 80 15 97 12/21/17 12:40 80 15 97 12/21/17 12:40 82 15 18 12:40 82 15 12/21/17 12:36 97/68 12/21/17 12:35 93 24 12/21/17 12:35 94 24 99 12/21/17 12:31 137/82 12/21/17 12:30 100 13 98 12/21/17 12:30 36.4 81 20 137/82 98 Mask 10 12/21/17 12:30 84 13 12/21/17 07:28 36.8 90 20 160/94 (116) 95 Room Air General Appearance: no apparent distress Head: normocephalic, atraumatic Eyes: normal inspection ENT: normal ENT inspection Neck: supple, no JVD Respiratory/Chest: normal breath sounds, no respiratory distress, no accessory muscle use Cardiovascular: no murmur, normal peripheral pulses, + tachycardia Abdomen/GI: normal bowel sounds, non tender, soft Genitourinary - Male: + pertinent finding (leos catheter in place and hematuria without clots noted) Back: normal inspection, no CVA tenderness, normal range of motion Extremities/Musculoskelatal: normal inspection, no calf tenderness, no pedal edema, normal range of motion Neurologic/Psych: alert, normal mood/affect, oriented x 3 Skin: normal color, warm/dry, no rash Lymphatic: no adenopathy Laboratory Results Last 24 Hours Test 12/21/17 00:00 12/21/17 07:49 12/21/17 13:11 12/21/17 23:15 White Blood Count 1.91 K/uL 1.92 K/uL Red Blood Count 4.44 M/uL 4.09 M/uL Hemoglobin 13.2 g/dL 12.1 g/dL Hematocrit 37.7 % 34.9 % Mean Corpuscular Volume 84.9 fL 85.3 fL Mean Corpuscular Hemoglobin 29.7 pg 29.6 pg Mean Corpuscular Hemoglobin Concent 35.0 g/dl 34.7 g/dl RDW Standard Deviation 44.1 fL 44.5 fL RDW Coefficient of Variation 14.2 % 14.2 % Platelet Count 260 K/uL 229 K/uL Mean Platelet Volume 9.4 fL 9.3 fL Neutrophils % (Manual) 0.0 % Lymphocytes % (Manual) 63.1 % Variant Lymphocytes % (manual) 28.1 % Monocytes % (Manual) 7.9 % Eosinophils % (Manual) 0.9 % Neutrophils # (Manual) 0.00 K/uL Total Absolute Neutrophils 0.00 K/uL Lymphocytes # (Manual) 1.21 K/uL Absolute Variant Lymphocytes 0.54 K/uL Total Absolute Lymphocytes 1.75 K/uL Monocytes # (Manual) 0.15 K/uL Eosinophils # (Manual) 0.02 K/uL Large Platelets 2+ Giant Platelets 1+ Sodium Level 136 mmol/L Potassium Level 4.1 mmol/L Chloride Level 104 mmol/L Carbon Dioxide Level 27 mmol/L Anion Gap 5.0 mmol/L Blood Urea Nitrogen 21 mg/dl Creatinine 0.78 mg/dl Est Creatinine Clear Calc Drug Dose 81.2 ml/min Estimated GFR () 105.3 Estimated GFR (Non- 90.8 BUN/Creatinine Ratio 27.1 Random Glucose 109 mg/dl Calcium Level 7.9 mg/dl Total Bilirubin 0.8 mg/dl Aspartate Amino Transf (AST/SGOT) 17 U/L Alanine Aminotransferase (ALT/SGPT) 27 U/L Alkaline Phosphatase 174 U/L Total Protein 5.6 gm/dl Albumin 2.6 gm/dl Globulin 3.0 gm/dl Albumin/Globulin Ratio 0.9 Test 12/21/17 23:26 Assessment & Plan This is a 72 yo m with h/o metastatic prostate ca that is suffering from neutropenic fever with no known source and s/p cystoscopy and TURP Neutropenic fever/ Hypotension - transfer to [facility] - Tylenol for fever control, avoid toradol for concern of potentially developing thrombocytopenia - blood cultures and UA with culture - CBC and CMP in am, add INR and PTT - influenza negative - NSS @ 500cc/h and continue maintenance IVF - Zosyn and vanco, cipro given - peripheral smear - neutropenic precautions s/p button TURP for urinary retention/ met prostate cancer - Fentanyl held as the patient was hypotensive, once vitals stable consider restarting - Dexamethasone and pred 5 mg cont, improved vitals with NSS so will defer stress dose at this time - for now held PM dose of Casodex; consult hem onc Glaucoma agree cont timolol Attending addendum: I have physically seen this patient, have supervised the medical residents activities, and agree with the H&P unless as otherwise noted. Assessment and Plan: Neutropenic fever/hypotension/status post TURP-- Plan as directed above Follow blood cultures and urine cultures He'll be in the ICU as telemetry overflow, due to concern regarding worsening hypotension and possible need for pressors. Broad spectrum antibiotic coverage with Vanco, Zosyn and Cipro IV If Neutropenia at same level in a.m., can start Neupogen at that time Additional Copies To RV. Maximiliano, MD
[2017-12-22] VITALS (15 sets, daily range): BP systolic 94–140; BP diastolic 61–91; PULSE 86–108; TEMP 36.8–37.2; O2SAT 91–94
[2017-12-22] MEDS ORDERED: VANCOMYCIN INJ 1,750 MG in SODIUM CHLORIDE 0.9% 500ML 500 ML IV SCH ×2
[2017-12-22] MEDS ORDERED: CHECK FENTANYL PATCH PLACEMENT SCH
[2017-12-22] MEDS ORDERED: PIPERACILL/TAZOBAC IV 3.375 GM in DEXTROSE 5% 100ML IV ONE ×2
[2017-12-22 00:01] LABS: HEMATOCRIT 36.3 % (42-52); HEMOGLOBIN 12.8 g/dL (14.0-18.0); MEAN CELL VOLUME 84.2 fL (80-100); MEAN CORPUSCULAR HEMOGLOBIN 29.7 pg (25-34); MEAN CORPUSCULAR HGB CONC 35.3 g/dl (32-36); MEAN PLATELET VOLUME 9.3 fL (7.4-10.4); NUCLEATED RED BLOOD CELL ABS 0.02 K/uL (0-0); PLATELET COUNT 273 K/uL (130-400); RED CELL DISTRIBUTION WIDTH CV 14.2 % (11.5-14.5); RED CELL DISTRIBUTION WIDTH SD 44.1 fL (36.4-46.3); WHITE BLOOD COUNT 1.21 K/uL (4.8-10.8)
[2017-12-22 00:09] LABS: ALBUMIN 2.5 gm/dl (3.4-5.0); CALCIUM 7.5 mg/dl (8.5-10.1); CREATININE 0.83 mg/dl (0.60-1.40); POTASSIUM 3.8 mmol/L (3.5-5.1); TOTAL PROTEIN 5.9 gm/dl (6.4-8.2)
[2017-12-22 00:32] LABS: INFLUENZA B ANTIGEN Neg for Influ B (NEG)
[2017-12-22] MEDS: DEXAMETHASONE 4 MG TAB PO SCH ×3 (00:50→21:45)
[2017-12-22] MEDS: TIMOLOL MALEATE 0.5% OP SOLN 5 ML BTL OPB SCH ×3 (00:51→21:43)
[2017-12-22 01:02] LABS: INFLUENZA A PCR Neg for Influ A (NEG); INFLUENZA B PCR Neg for Influ B (NEG)
[2017-12-22] MEDS: SODIUM CHLORIDE 0.9% 1000ML 1,000 ML IV SCH ×3 (01:33→21:43)
[2017-12-22] MEDS ORDERED: SODIUM CHLORIDE 0.9% 500ML 500 ML IV ONE (02:30)
[2017-12-22 05:40] LABS: HEMATOCRIT 33.2 % (42-52); HEMOGLOBIN 11.7 g/dL (14.0-18.0); MEAN CELL VOLUME 85.3 fL (80-100); MEAN CORPUSCULAR HEMOGLOBIN 30.1 pg (25-34); MEAN CORPUSCULAR HGB CONC 35.2 g/dl (32-36); MEAN PLATELET VOLUME 9.2 fL (7.4-10.4); PLATELET COUNT 234 K/uL (130-400); RED CELL DISTRIBUTION WIDTH CV 14.4 % (11.5-14.5); RED CELL DISTRIBUTION WIDTH SD 45.2 fL (36.4-46.3); WHITE BLOOD COUNT 1.73 K/uL (4.8-10.8)
[2017-12-22 05:51] LABS: INR 1.3 (0.9-1.1); PTT PATIENT 36.4 SECONDS (21.0-31.0)
[2017-12-22 06:04] LABS: ALBUMIN 2.3 gm/dl (3.4-5.0); CALCIUM 7.8 mg/dl (8.5-10.1); CREATININE 0.99 mg/dl (0.60-1.40); POTASSIUM 4.2 mmol/L (3.5-5.1)
[2017-12-22 06:06] LABS: TOTAL PROTEIN 5.5 gm/dl (6.4-8.2)
--- NOTE | 2017-12-22 06:34 | DIAGNOSTIC IMAGING REPORT ---
CHEST ONE VIEW PORTABLE HISTORY: 72 years-old Male FEVER acute fever in patient with history of metastatic carcinoma. COMPARISON: PET CT 10/13/2017, chest CT 10/01/2017, chest radiograph 04/02/2017 TECHNIQUE: Portable AP view of the chest FINDINGS: Cardiac silhouette is moderately enlarged. Lungs are hypoinflated with bronchovascular crowding. No pneumothorax. Trace blunting the left costophrenic angle with patchy left midlung and left basilar opacities. Bones appear grossly intact. IMPRESSION: 1. Cardiomegaly with hypoinflation and bronchovascular crowding. 2. Trace left pleural effusion with left basilar patchy opacities suggesting atelectasis or pneumonia. The above report was generated using voice recognition software. It may contain grammatical, syntax or spelling errors. Electronically signed by: Kris Rodriguez M.D. 12/22/2017 6:32 AM Dictated Date/Time: 12/22/2017 6:28 AM
[2017-12-22] MEDS: PIPERACILL/TAZOBAC IV 3.375 GM in DEXTROSE 5% 100ML IV SCH ×3 (06:37→21:45)
--- NOTE | 2017-12-22 07:42 | DIAGNOSTIC IMAGING REPORT ---
ABDOMEN AND PELVIS CT WITHOUT CONTRAST CT DOSE: 362.49 mGy.cm HISTORY: neutropenia and fever after surgery today TECHNIQUE: Multiaxial CT images of the abdomen and pelvis were performed without contrast. A dose lowering technique was utilized adhering to the principles of ALARA. COMPARISON STUDY: Abdomen and pelvis CT 10/01/2017. FINDINGS: Trace bilateral pleural effusions with bibasilar subsegmental atelectasis. Mild thickening of the distal esophagus. Multiple hepatic lesions are again noted and appear to have decreased in size. Dominant lesion within the right hepatic lobe measures 3.3 cm, previously measuring 4.8 cm. The spleen, adrenal glands, pancreas, and gallbladder are unremarkable. Bilateral renal hypodense lesions are again noted and favor cysts. No hydronephrosis. The prostate is enlarged. There is a Cuevas catheter within the bladder. Trace hyperdense material within the bladder lumen may be blood products. There is moderate bladder wall thickening. There is fluid/edema anterior to the bladder. No bowel wall thickening or obstruction. Normal appendix. 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 This is most pronounced within the sacrum. Some of the lesions appear to have increased in size in the interval. IMPRESSION: 1. Hepatic metastatic disease appears to have improved. 2. 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 3. Nonspecific fluid anterior to the bladder. There is moderate thickening of the bladder wall which could be due to decompression by the Cuevas catheter. Recommend correlation with urinalysis to exclude a cystitis. 4. Trace hyperdense material within the bladder lumen may represent a small amount of hemorrhage. Electronically signed by: Gary Marroquin M.D. 12/22/2017 7:41 AM Dictated Date/Time: 12/22/2017 7:35 AM
--- NOTE | 2017-12-22 08:05 | ONCOLOGY CONSULTATION ---
DATE OF CONSULTATION: 12/22/2017 REASON FOR CONSULTATION: Neutropenic fever. HISTORY OF PRESENT ILLNESS: Adolfo is a very pleasant 72-year-old [place] gentleman well known to [facility] currently under my care for metastatic prostate cancer. Patient underwent a urologic procedure yesterday. Specifically, cystoscopy with litholapaxy with button TURP for bladder stone to correct gross hematuria and urinary retention. Apparently, the procedure was uneventful. However, the patient developed a post op fever with temperature of 38 centigrade. Preop CBC confirmed neutropenia and Consult placed for medical management. Empiric antibiotics were started and mcgrath cultured. The patient is currently on observation status in the ICU because of lack of telemetry beds. At the bedside, Adolfo looks quite happy,stable ,and enjoying breakfast. Adolfo is a very pleasant 72-year-old non-Armenian speaking [place] gentleman well known to [facility] recently diagnosed with metastatic prostate cancer. He was diagnosed in the fall of 2016 when he had been in noted clinical decline losing close to 20 pounds suffering from anorexia and intermittent constipation. CT scan of the abdomen was performed in mid August with findings consistent with hepatic metastatic disease. His PSA was significantly elevated over 4600 and subsequently underwent further radiographic investigation revealing skeletal metastatic disease. The patient has been on total androgen blockade and recently Taxotere was added to the regimen. He last received Taxotere approximately 2 weeks ago. CBC done prior to the patient's procedure that clearly indicates neutropenia with low normal hemoglobin and platelet count. Primary service requesting assistance in managing Mr. Barillas's neutropenia. PAST MEDICAL HISTORY: Again, significant for metastatic prostate cancer, hyperlipidemia, hypertension. PAST SURGICAL HISTORY: Essentially negative. MEDICATIONS: Include combination Casodex, leuprolide and Taxotere. ALLERGIES: No known drug allergies. SOCIAL HISTORY: The patient is retired, nonsmoker, nondrinker. FAMILY HISTORY: Negative for cancer. REVIEW OF SYSTEMS: Again unobtainable. The patient does not speak Armenian. He looks well at bedside, sitting up in bed, enjoying today's breakfast. PHYSICAL EXAMINATION: GENERAL: Very pleasant 72-year-old gentleman in no acute distress. VITAL SIGNS: Temperature 37.1, pulse 90, respirations 19, blood pressure 115/66. SKIN: Without rash or lesion. HEENT: Atraumatic, normocephalic. EYES: PERRLA, EOMI. Oral mucosa without erythema or ulceration. NECK: Supple. HEART: Regular rate and rhythm. No clicks, rubs, murmurs or gallops. LUNGS: Clear to auscultation bilaterally. ABDOMEN: Soft, nontender, nondistended, without palpable hepatosplenomegaly. EXTREMITIES: No calf tenderness or swelling. No clubbing, cyanosis or edema. NEUROLOGIC: Not performed. LABORATORY DATA: WBC count 7330, hemoglobin 11.7, platelet count 234,000. Blood and urine cultures pending. Sodium 133, potassium 4.2, chloride 101, carbon dioxide 25, BUN 23, creatinine 0.99. IMPRESSION: 1. Status post transurethral resection of prostate. 2. Neutropenic fever. 3. Metastatic prostate cancer. PLAN: I had the pleasure of seeing Adolfo at bedside today. His vital signs for the most part have stabilized. Clearly, he remains neutropenic and will provide a dose of granulocyte colony stimulating growth factor today. G- CSF will be added to subsequent courses of chemotherapy. As long as he remains afebrile and his vital signs have stabilized, I see no reason why he cannot be discharged home to follow up as scheduled with medical oncology prior to his next cycle of chemotherapy. perhaps provide Cipro 500 mg BID at d/c. If cultures become positive, would proceed with antimicrobial therapy as appropriate. I will ensure Adolfo has outpatient followup arranged. I really have nothing further to add in this gentleman's case. Thank you very much for allowing us to participate in his care. If you have any questions or concerns, feel free to consult me at any time. BRINA
--- NOTE | 2017-12-22 08:17 | Family Medicine Progress Note ---
Progress Note Date of Service Dec 22, 2017. Subjective Pt evaluation today including: conversation w/ patient, conversation w/ family , physical exam, chart review, lab review, review of studies, conversation w/ energy sales consultant, review of inpatient medication list Patient only speaks Tanz[place], as such daughterDestinee acted as telephone solicitor supervisor over the phone. Patient states he is well, denies acute overnight events. He denies feeling fevers, chills, sweats- even when he had documented fevers yesterday. He denies any discomfort currently. He otherwise denies headaches, CP, palpitations, dyspnea, abdominal pain, lower extremity swelling or rashes. He is tolerating diet without nausea or vomiting. ROS is unremarkable except as noted above. Objective Vital Signs Date Time Temp Pulse Resp B/P (MAP) Pulse Ox O2 Delivery O2 Flow Rate FiO2 12/22/17 04:31 87 19 110/77 (88) 92 Room Air 12/22/17 04:01 37.1 90 19 115/66 (82) 93 Room Air 12/22/17 04:00 Room Air 12/22/17 03:31 90 18 110/73 (85) 92 Room Air 12/22/17 03:01 87 19 105/65 (78) 94 Room Air 12/22/17 02:31 92 18 98/61 (73) 93 Room Air 12/22/17 02:01 91 17 100/64 (76) 93 Room Air 12/22/17 01:01 37.2 108 22 94/65 (75) 93 Room Air 12/22/17 01:00 107 22 93 12/22/17 00:10 99/64 (76) 12/22/17 00:10 38.1 128 16 92 12/21/17 23:08 38.1 124 16 108/67 (81) 92 Room Air 12/21/17 22:21 39.4 12/21/17 22:14 39.2 12/21/17 21:44 39.2 12/21/17 20:40 38.2 12/21/17 20:00 Room Air 12/21/17 19:15 36.9 93 20 158/95 (116) 93 Room Air 12/21/17 19:07 37.1 93 18 159/83 (108) 92 Room Air 12/21/17 17:26 36.5 84 18 133/80 (97) 92 Room Air 12/21/17 16:33 36.8 86 18 144/83 (103) 96 Nasal Cannula 1.5 12/21/17 15:55 97 Nasal Cannula 2.0 12/21/17 15:30 83 16 135/85 (102) 96 Nasal Cannula 2.0 12/21/17 15:23 36.6 85 18 126/75 (92) 97 Nasal Cannula 2.0 12/21/17 15:00 36.7 96 16 134/74 (94) 98 Nasal Cannula 2.0 12/21/17 14:00 36.3 86 18 132/81 (98) 97 Nasal Cannula 2.0 12/21/17 14:00 97 Nasal Cannula 2.0 12/21/17 13:42 79 16 12/21/17 13:42 79 16 97 12/21/17 13:41 132/84 12/21/17 13:37 80 13 12/21/17 13:37 79 13 97 12/21/17 13:36 145/86 12/21/17 13:32 82 15 12/21/17 13:32 81 15 98 12/21/17 13:31 137/85 12/21/17 13:27 79 21 97 12/21/17 13:27 79 21 12/21/17 13:26 143/90 12/21/17 13:22 79 19 96 12/21/17 13:22 80 19 12/21/17 13:21 36.2 127/88 12/21/17 13:20 83 18 96 12/21/17 13:20 84 18 12/21/17 13:16 132/82 12/21/17 13:15 80 15 97 12/21/17 13:15 81 15 12/21/17 13:11 139/86 12/21/17 13:10 87 17 12/21/17 13:10 97 17 98 12/21/17 13:06 111/71 12/21/17 13:05 81 15 12/21/17 13:05 81 15 97 12/21/17 13:01 118/73 12/21/17 13:00 85 14 12/21/17 13:00 84 14 99 12/21/17 12:56 123/71 12/21/17 12:56 123/71 (80) 12/21/17 12:55 83 15 99 12/21/17 12:55 83 15 12/21/17 12:55 83 15 12/21/17 12:55 83 15 99 12/21/17 12:51 NIBP 12/21/17 12:51 12/21/17 12:50 82 13 12/21/17 12:50 81 13 98 12/21/17 12:50 81 13 98 12/21/17 12:50 82 13 115/74 (80) 12/21/17 12:46 117/70 12/21/17 12:46 117/70 (82) 12/21/17 12:45 82 14 98 12/21/17 12:45 83 14 12/21/17 12:45 83 14 12/21/17 12:45 82 14 98 12/21/17 12:41 107/75 12/21/17 12:41 107/75 (87) 12/21/17 12:40 80 15 97 12/21/17 12:40 80 15 97 12/21/17 12:40 82 15 12/21/17 12:40 82 15 12/21/17 12:36 97/68 12/21/17 12:35 93 24 12/21/17 12:35 94 24 99 12/21/17 12:31 137/82 12/21/17 12:30 100 13 98 12/21/17 12:30 36.4 81 20 137/82 98 Mask 10 12/21/17 12:30 84 13 Physical Exam General Appearance: WD/WN, no apparent distress Eyes: normal inspection ENT: hearing grossly normal Neck: supple Respiratory/Chest: lungs clear, normal breath sounds, no respiratory distress, no accessory muscle use Cardiovascular: regular rate, rhythm, no murmur Abdomen: normal bowel sounds, non tender, soft, + pertinent finding (Cuevas in place, urine pinkish in color) Extremities: no pedal edema, no calf tenderness Neurologic/Psychiatric: alert, normal mood/affect Skin: normal color, warm/dry, no rash Laboratory Results Results Past 24 Hours Test 12/21/17 23:26 12/21/17 23:45 12/22/17 05:14 Range/Units White Blood Count 1.21 1.73 4.8-10.8 K/uL Red Blood Count 4.31 3.89 4.7-6.1 M/uL Hemoglobin 12.8 11.7 14.0-18.0 g/dL Hematocrit 36.3 33.2 42-52 % Mean Corpuscular Volume 84.2 85.3 80-100 fL Mean Corpuscular Hemoglobin 29.7 30.1 25-34 pg Mean Corpuscular Hemoglobin Concent 35.3 35.2 32-36 g/dl Platelet Count 273 234 130-400 K/uL Mean Platelet Volume 9.3 9.2 7.4-10.4 fL RDW Standard Deviation 44.1 45.2 36.4-46.3 fL RDW Coefficient of Variation 14.2 14.4 11.5-14.5 % Nucleated RBC Absolute Count (auto) 0.02 0-0 K/uL Neutrophils % (Manual) 1.0 % Lymphocytes % (Manual) 52.8 % Variant Lymphocytes % (manual) 20.2 % Monocytes % (Manual) 23.1 % Eosinophils % (Manual) 1.0 % Basophils % (Manual) 1.9 0-2 % Nucleated Red Blood Cells % 2.0 % Neutrophils # (Manual) 0.01 1.4-6.5 K/uL Total Absolute Neutrophils 0.01 1.4-6.5 K/uL Lymphocytes # (Manual) 0.64 1.2-3.4 K/uL Absolute Variant Lymphocytes 0.24 K/uL Total Absolute Lymphocytes 0.88 1.2-3.4 K/uL Monocytes # (Manual) 0.28 0.11-0.59 K/uL Eosinophils # (Manual) 0.01 0-0.5 K/uL Basophils # (Manual) 0.02 0-0.2 K/uL Large Platelets 1+ Peripheral Blood Smear Path Consult Sodium Level 133 133 136-145 mmol/L Potassium Level 3.8 4.2 3.5-5.1 mmol/L Chloride Level 101 101 98-107 mmol/L Carbon Dioxide Level 22 25 21-32 mmol/L Anion Gap 10.0 7.0 3-11 mmol/L Blood Urea Nitrogen 22 23 7-18 mg/dl Creatinine 0.83 0.99 0.60-1.40 mg/dl Est Creatinine Clear Calc Drug Dose 76.3 64.0 ml/min Estimated GFR () 102.6 88.4 Estimated GFR (Non- 88.5 76.3 BUN/Creatinine Ratio 27.2 23.6 10-20 Random Glucose 118 129 70-99 mg/dl Calcium Level 7.5 7.8 8.5-10.1 mg/dl Total Bilirubin 1.0 1.1 0.2-1 mg/dl Aspartate Amino Transf (AST/SGOT) 22 18 15-37 U/L Alanine Aminotransferase (ALT/SGPT) 28 25 12-78 U/L Alkaline Phosphatase 163 149 45-117 U/L Total Protein 5.9 5.5 6.4-8.2 gm/dl Albumin 2.5 2.3 3.4-5.0 gm/dl Globulin 3.4 3.2 2.5-4.0 gm/dl Albumin/Globulin Ratio 0.7 0.7 0.9-2 Influenza Type A (RT-PCR) Neg for Influ A NEG Influenza Type A Antigen Neg for Influ A NEG Influenza Type B Antigen Neg for Influ B NEG Influenza Type B (RT-PCR) Neg for Influ B NEG Prothrombin Time 14.0 9.0-12.0 SECONDS Prothromb Time International Ratio 1.3 0.9-1.1 Activated Partial Thromboplast Time 36.4 21.0-31.0 SECONDS Partial Thromboplastin Ratio 1.4 Hepatitis C Antibody Screen NEG NEG Microbiology Results 12/21/17 Blood Culture, Received Pending 12/21/17 Urine Culture, Received Pending Assessment and Plan 72 yo m with h/o metastatic prostate cancer that is suffering from neutropenic fever with no known source and s/p cystoscopy and TURP (POD 1) Neutropenic fever/ Hypotension - CBC revealed ANC 0.01. influenza negative. Patient is in middle of chemotx. ID and heme/onc consulted - recs appreciated - IV abx: Zosyn and vanco - Started on filgrastim by heme/onc - NSS @ 100cc/h - Tylenol for fever control - avoid Toradol for concern of potentially developing thrombocytopenia - Trace blood, urine, stone cultures - Neutropenic precautions POD 1 s/p TURP and bladder stone removal for retention and gross hematuria - Fentanyl held as the patient was hypotensive, once vitals stable consider restarting - Morphine for pain - Dexamethasone and pred 5 mg cont, improved vitals with NSS so will defer stress dose at this time - Cuevas in situ Metastatic prostate cancer - Continue Casodex Glaucoma - Continue timolol VTE ppx - SCDs Resident Physician Supervision Note: I interviewed and examined the patient. Discussed with Dr. Cavanaugh and agree with findings and plan as documented in the note. Any exceptions or clarifications are listed here: None Documented By: Damien Zamora no new problems nursing notes doing well vitals noted nad breathing unlabored no pallor or icterus neutropenic fever - broad abx pending further culture growth, follow CBC, appears very stable Continued [facility] stay due to: fever Discharge planning: home Resident Tracking Resident Involvement: Resident Care Provided Care Provided: Adult Hospital Medicine
[2017-12-22] MEDS ORDERED: FENTANYL PATCH REMOVE & WASTE SCH (08:59)
[2017-12-22] MEDS ORDERED: PIPERACILL/TAZOBAC IV 3.375 GM in DEXTROSE 5% 100ML 100 ML IV SCH (09:00)
[2017-12-22] MEDS ORDERED: FENTANYL 12 MCG/HR TDSY TD SCH ×2 (09:00)
[2017-12-22] MEDS ORDERED: VANCOMYCIN INJ 1,000 MG in SODIUM CHLORIDE 0.9% 250ML 250 ML IV SCH (09:00)
[2017-12-22] MEDS: DOCUSATE SODIUM 100 MG CAP PO SCH ×2 (09:03→21:45)
--- NOTE | 2017-12-22 10:06 | Progress Note ---
Subjective Date of Service: Dec 22, 2017. (Ivis Hastings CRNP) Subjective Pt evaluation today including: conversation w/ patient, chart review, lab review Voiding: leos catheter in place (patent, draining light pink colored urine) 72 yo male s/p TURP. Transferred to ICU overnight (tele had no beds) for fever and nuetropenia. Currently afebrile. No fevers since midnight last night. Pt seen by Dr. Hudson earlier this morning. CBI clamped. Leos now draining light lozada/pink colored urine. Blood and urine cultures pending. (Ivis Hastings CRNP) Pt evaluation today including: conversation w/ patient, physical exam, chart review, lab review, review of studies Pain: Tolerated. 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 Retention issues with recurrent Gross Hematuria and found to have bladder stone with large amount of debris. Bladder stone removed yesterday and resection of prostate to control hematuria and attempt to reduce obstruction. Patient did well until approx 7pm when developed low grade fever that esculated to 39.4 Was transferred to ICU due to lack of telemetry beds. Cultures and imaging completed. Antibiotics escalated to broad spectrum coverage with two agents. This AM resting comfortably in good spirits. No issues with vital. No fever. Eating breakfast without issues. CBI titrated to low drip and able to be clamped. Urine very light pink (Joseph Hudson, D.OAda) Review of Systems Pt speaks Czech. Unable to answer most questions, but smiling and stating he feels "OK" with a thumbs up this morning. (Ivis Hastings CRNP) Constitutional: + fever All Other Systems: Reviewed and Negative (Joseph Hudson, D.O.) Objective Vital Signs Date Time Temp Pulse Resp B/P (MAP) Pulse Ox O2 Delivery O2 Flow Rate FiO2 12/22/17 08:00 Room Air 12/22/17 08:00 37.1 18 134/82 (99) 93 Room Air 12/22/17 04:31 87 19 110/77 (88) 92 Room Air 12/22/17 04:01 37.1 90 19 115/66 (82) 93 Room Air 12/22/17 04:00 Room Air 12/22/17 03:31 90 18 110/73 (85) 92 Room Air 12/22/17 03:01 87 19 105/65 (78) 94 Room Air 12/22/17 02:31 92 18 98/61 (73) 93 Room Air 12/22/17 02:01 91 17 100/64 (76) 93 Room Air 12/22/17 01:01 37.2 108 22 94/65 (75) 93 Room Air 12/22/17 01:00 107 22 93 12/22/17 00:10 99/64 (76) 12/22/17 00:10 38.1 128 16 92 12/21/17 23:08 38.1 124 16 108/67 (81) 92 Room Air 12/21/17 22:21 39.4 12/21/17 22:14 39.2 12/21/17 21:44 39.2 12/21/17 20:40 38.2 12/21/17 20:00 Room Air 12/21/17 19:15 36.9 93 20 158/95 (116) 93 Room Air 12/21/17 19:07 37.1 93 18 159/83 (108) 92 Room Air 12/21/17 17:26 36.5 84 18 133/80 (97) 92 Room Air 12/21/17 16:33 36.8 86 18 144/83 (103) 96 Nasal Cannula 1.5 12/21/17 15:55 97 Nasal Cannula 2.0 12/21/17 15:30 83 16 135/85 (102) 96 Nasal Cannula 2.0 12/21/17 15:23 36.6 85 18 126/75 (92) 97 Nasal Cannula 2.0 12/21/17 15:00 36.7 96 16 134/74 (94) 98 Nasal Cannula 2.0 12/21/17 14:00 36.3 86 18 132/81 (98) 97 Nasal Cannula 2.0 12/21/17 14:00 97 Nasal Cannula 2.0 12/21/17 13:42 79 16 12/21/17 13:42 79 16 97 12/21/17 13:41 132/84 12/21/17 13:37 80 13 12/21/17 13:37 79 13 97 12/21/17 13:36 145/86 12/21/17 13:32 82 15 12/21/17 13:32 81 15 98 12/21/17 13:31 137/85 12/21/17 13:27 79 21 97 12/21/17 13:27 79 21 12/21/17 13:26 143/90 12/21/17 13:22 79 19 96 12/21/17 13:22 80 19 12/21/17 13:21 36.2 127/88 12/21/17 13:20 83 18 96 12/21/17 13:20 84 18 12/21/17 13:16 132/82 12/21/17 13:15 80 15 97 12/21/17 13:15 81 15 12/21/17 13:11 139/86 12/21/17 13:10 87 17 12/21/17 13:10 97 17 98 12/21/17 13:06 111/71 12/21/17 13:05 81 15 12/21/17 13:05 81 15 97 12/21/17 13:01 118/73 12/21/17 13:00 85 14 12/21/17 13:00 84 14 99 12/21/17 12:56 123/71 12/21/17 12:56 123/71 (80) 12/21/17 12:55 83 15 99 12/21/17 12:55 83 15 12/21/17 12:55 83 15 12/21/17 12:55 83 15 99 12/21/17 12:51 NIBP 12/21/17 12:51 12/21/17 12:50 82 13 12/21/17 12:50 81 13 98 12/21/17 12:50 81 13 98 12/21/17 12:50 82 13 115/74 (80) 12/21/17 12:46 117/70 12/21/17 12:46 117/70 (82) 12/21/17 12:45 82 14 98 12/21/17 12:45 83 14 18 12:45 83 14 12/21/17 12:45 82 14 98 12/21/17 12:41 107/75 12/21/17 12:41 107/75 (87) 12/21/17 12:40 80 15 97 12/21/17 12:40 80 15 97 12/21/17 12:40 82 15 12/21/17 12:40 82 15 12/21/17 12:36 97/68 12/21/17 12:35 93 24 12/21/17 12:35 94 24 99 12/21/17 12:31 137/82 12/21/17 12:30 100 13 98 12/21/17 12:30 36.4 81 20 137/82 98 Mask 10 12/21/17 12:30 84 13 (Ivis Hastings CRNP) Physical Exam General Appearance: no apparent distress Eyes: normal inspection ENT: hearing grossly normal Neck: no JVD Respiratory/Chest: no respiratory distress, no accessory muscle use Cardiovascular: no JVD Extremities: normal inspection Neurologic/Psychiatric: alert, normal mood/affect, oriented x 3 Skin: normal color (Ivis Hastings CRNP) General Appearance: WD/WN, no apparent distress Eyes: normal inspection Neck: supple, no JVD Respiratory/Chest: no respiratory distress, no accessory muscle use Cardiovascular: regular rate, rhythm Abdomen: non tender, soft, no organomegaly Extremities: normal range of motion, non-tender, no pedal edema 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, no motor/sensory deficits, alert, normal mood/affect Skin: normal color, warm/dry, no rash Lymphatic: no adenopathy (Joseph Hudson, D.OAda) Laboratory Results Last 24 Hours Test 12/21/17 13:11 12/21/17 23:26 12/21/17 23:45 12/22/17 05:14 White Blood Count 1.92 K/uL 1.21 K/uL 1.73 K/uL Red Blood Count 4.09 M/uL 4.31 M/uL 3.89 M/uL Hemoglobin 12.1 g/dL 12.8 g/dL 11.7 g/dL Hematocrit 34.9 % 36.3 % 33.2 % Mean Corpuscular Volume 85.3 fL 84.2 fL 85.3 fL Mean Corpuscular Hemoglobin 29.6 pg 29.7 pg 30.1 pg Mean Corpuscular Hemoglobin Concent 34.7 g/dl 35.3 g/dl 35.2 g/dl Platelet Count 229 K/uL 273 K/uL 234 K/uL Mean Platelet Volume 9.3 fL 9.3 fL 9.2 fL RDW Standard Deviation 44.5 fL 44.1 fL 45.2 fL RDW Coefficient of Variation 14.2 % 14.2 % 14.4 % Neutrophils % (Manual) 0.0 % 1.0 % Lymphocytes % (Manual) 63.1 % 52.8 % Variant Lymphocytes % (manual) 28.1 % 20.2 % Monocytes % (Manual) 7.9 % 23.1 % Eosinophils % (Manual) 0.9 % 1.0 % Neutrophils # (Manual) 0.00 K/uL 0.01 K/uL Total Absolute Neutrophils 0.00 K/uL 0.01 K/uL Lymphocytes # (Manual) 1.21 K/uL 0.64 K/uL Absolute Variant Lymphocytes 0.54 K/uL 0.24 K/uL Total Absolute Lymphocytes 1.75 K/uL 0.88 K/uL Monocytes # (Manual) 0.15 K/uL 0.28 K/uL Eosinophils # (Manual) 0.02 K/uL 0.01 K/uL Large Platelets 2+ 1+ Giant Platelets 1+ Sodium Level 136 mmol/L 133 mmol/L 133 mmol/L Potassium Level 4.1 mmol/L 3.8 mmol/L 4.2 mmol/L Chloride Level 104 mmol/L 101 mmol/L 101 mmol/L Carbon Dioxide Level 27 mmol/L 22 mmol/L 25 mmol/L Anion Gap 5.0 mmol/L 10.0 mmol/L 7.0 mmol/L Blood Urea Nitrogen 21 mg/dl 22 mg/dl 23 mg/dl Creatinine 0.78 mg/dl 0.83 mg/dl 0.99 mg/dl Est Creatinine Clear Calc Drug Dose 81.2 ml/min 76.3 ml/min 64.0 ml/min Estimated GFR () 105.3 102.6 88.4 Estimated GFR (Non- 90.8 88.5 76.3 BUN/Creatinine Ratio 27.1 27.2 23.6 Random Glucose 109 mg/dl 118 mg/dl 129 mg/dl Calcium Level 7.9 mg/dl 7.5 mg/dl 7.8 mg/dl Total Bilirubin 0.8 mg/dl 1.0 mg/dl 1.1 mg/dl Aspartate Amino Transf (AST/SGOT) 17 U/L 22 U/L 18 U/L Alanine Aminotransferase (ALT/SGPT) 27 U/L 28 U/L 25 U/L Alkaline Phosphatase 174 U/L 163 U/L 149 U/L Total Protein 5.6 gm/dl 5.9 gm/dl 5.5 gm/dl Albumin 2.6 gm/dl 2.5 gm/dl 2.3 gm/dl Globulin 3.0 gm/dl 3.4 gm/dl 3.2 gm/dl Albumin/Globulin Ratio 0.9 0.7 0.7 Nucleated RBC Absolute Count (auto) 0.02 K/uL Basophils % (Manual) 1.9 % Nucleated Red Blood Cells % 2.0 % Basophils # (Manual) 0.02 K/uL Influenza Type A (RT-PCR) Neg for Influ A Influenza Type A Antigen Neg for Influ A Influenza Type B Antigen Neg for Influ B Influenza Type B (RT-PCR) Neg for Influ B Prothrombin Time 14.0 SECONDS Prothromb Time International Ratio 1.3 Activated Partial Thromboplast Time 36.4 SECONDS Partial Thromboplastin Ratio 1.4 Hepatitis C Antibody Screen NEG (Ivis Hastings CRNP) Assessment and Plan POD #1 s/p TURP. AFVSS. Will keep CBI clamped as long as urine remains light pink to yellow. Continue IV abx pending culture sensitivities. He will remain inpatient until culture sensitivities return and he has been afebrile x 24hrs. Transfer to floor when OK with hospitalist. 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 Neutropenia 3. Fever 4. POD 1 s/p TURP and Bladder Stone Removal for Retention and Gross Hematuria Called family and discussed patient and plan. Will monitor closely. De-esculate antibiotics as appropriate based on cultures and sensitivities. Monitor and continue Leos drainage. Appreciate consultations from Oncology and Medicine and assistance in management. Supportive care. Continued [facility] stay due to: fever (Joseph Hudson D.O.)
--- NOTE | 2017-12-22 10:52 | Anesthesiology Progress Note ---
Anesthesia Post Op Note Date & Time Dec 22, 2017 at 10:51 Vital Signs Pain Intensity: 2.0 Vital Signs Past 12 Hours Date Time Temp Pulse Resp B/P (MAP) Pulse Ox O2 Delivery O2 Flow Rate FiO2 12/22/17 08:00 Room Air 12/22/17 08:00 37.1 18 134/82 (99) 93 Room Air 12/22/17 04:31 87 19 110/77 (88) 92 Room Air 12/22/17 04:01 37.1 90 19 115/66 (82) 93 Room Air 12/22/17 04:00 Room Air 12/22/17 03:31 90 18 110/73 (85) 92 Room Air 12/22/17 03:01 87 19 105/65 (78) 94 Room Air 12/22/17 02:31 92 18 98/61 (73) 93 Room Air 12/22/17 02:01 91 17 100/64 (76) 93 Room Air 12/22/17 01:01 37.2 108 22 94/65 (75) 93 Room Air 12/22/17 01:00 107 22 93 12/22/17 00:10 99/64 (76) 12/22/17 00:10 38.1 128 16 92 12/21/17 23:08 38.1 124 16 108/67 (81) 92 Room Air Notes Mental Status: alert / awake / arousable, participated in evaluation Nausea / Vomiting: adequately controlled Pain: adequately controlled Airway Patency, RR, SpO2: stable & adequate BP & HR: stable & adequate Hydration State: stable & adequate Awake alert, pain controlled, pleased with care. VSS. No issues.
[2017-12-22] MEDS ORDERED: FILGRASTIM 480 MCG/1.6 ML VIAL SC SCH (12:00)
--- NOTE | 2017-12-22 12:36 | Pharmacy Progress Note ---
Pharmacy Abx Dose Short Note Date of Service Dec 22, 2017. Assessment & Plan Assessment * 72 year old male receiving vancomycin + Zosyn IV for empiric treatment of febrile neutropenia s/p urologic procedure (TURP 12/21/17) * Tmax 39.4C last 24 hrs; Neutrophil count yesterday 10 - neutrophil count not repeated today; filgrastim SQ x 1 ordered today * Of note, patient was given Taxotere ~2 wks ago * Urine Cx sent, no UA performed; BLCX's x 2 also sent * VSS at this time; mild tachycardia noted overnight * SCr trending upwards a little today following yesterday's procedure, will need to monitor closely. U.O. not yet recorded for today. * Note: ABX have only been ordered for 48 hours of empiric coverage Plan Vancomycin * Loading dose: 1750mg IV (~23mg/kg) IV x 1 given at 0049 this AM * Maintenance dose: 1250mg (16.8mg/kg) IV Q 16 hours * Goal trough level for febrile neutropenia : 15 to 20 mcg/mL * Trough level ordered for: 12/24/17 prior to 4th maint dose * Estimated pkinetic parameters: Vd 0.7L/kg; half-life ~12 hours Zosyn * eCrCl > 20cc/min; 3.375gm ext-infusion Q 8 hrs indicated for this level of renal fxn Pharmacy will continue to follow and will adjust dose/frequency as necessary. Thank you.
[2017-12-22] MEDS: VANCOMYCIN INJ 1,250 MG in SODIUM CHLORIDE 0.9% 250ML 250 ML IV SCH (15:50)
[2017-12-22] MEDS: BICALUTAMIDE 50 MG TAB PO SCH (21:44)
[2017-12-23] VITALS (12 sets, daily range): BP systolic 128–189; BP diastolic 82–120; PULSE 80–102; TEMP 36.5–37.2; O2SAT 91–95
[2017-12-23] MEDS: PIPERACILL/TAZOBAC IV 3.375 GM in DEXTROSE 5% 100ML IV SCH (05:48)
[2017-12-23 05:52] LABS: INR 1.3 (0.9-1.1)
[2017-12-23 05:53] LABS: HEMATOCRIT 32.3 % (42-52); HEMOGLOBIN 11.4 g/dL (14.0-18.0); MEAN CELL VOLUME 83.9 fL (80-100); MEAN CORPUSCULAR HEMOGLOBIN 29.6 pg (25-34); MEAN CORPUSCULAR HGB CONC 35.3 g/dl (32-36); MEAN PLATELET VOLUME 9.6 fL (7.4-10.4); NUCLEATED RED BLOOD CELL ABS 0.03 K/uL (0-0); PLATELET COUNT 261 K/uL (130-400); RED CELL DISTRIBUTION WIDTH CV 14.1 % (11.5-14.5); RED CELL DISTRIBUTION WIDTH SD 43.3 fL (36.4-46.3); WHITE BLOOD COUNT 7.06 K/uL (4.8-10.8)
[2017-12-23 06:18] LABS: ALBUMIN 2.3 gm/dl (3.4-5.0); CALCIUM 8.2 mg/dl (8.5-10.1); CREATININE 1.07 mg/dl (0.60-1.40); POTASSIUM 3.9 mmol/L (3.5-5.1)
[2017-12-23 06:20] LABS: TOTAL PROTEIN 6.1 gm/dl (6.4-8.2)
--- NOTE | 2017-12-23 08:25 | Progress Note ---
Subjective Date of Service: Dec 23, 2017. Subjective Pt evaluation today including: conversation w/ patient, chart review, lab review Voiding: leos catheter in place (patent, draining dark brownish urine ) 72 yo male s/p TURP. Pt has been afebrile for over 24hrs. Cultures pending. White count has normalized. Problem List Medical Problems: (1) Urinary retention Status: Acute Review of Systems Pt denies pain this morning. Feels well. Speaks Mauritian and has limited vocabulary. Objective Vital Signs Date Time Temp Pulse Resp B/P (MAP) Pulse Ox O2 Delivery O2 Flow Rate FiO2 12/23/17 04:00 36.7 88 20 132/82 (99) 92 Room Air 12/23/17 04:00 92 Room Air 12/22/17 23:59 91 Room Air 12/22/17 23:39 36.8 92 22 129/90 (103) 91 Room Air 12/22/17 20:00 93 Room Air 12/22/17 20:00 36.8 99 20 140/91 (107) 93 Room Air 12/22/17 16:00 Room Air 12/22/17 16:00 36.9 90 16 132/75 (94) 94 Room Air 12/22/17 12:00 Room Air 12/22/17 12:00 37.0 86 18 136/90 (105) 93 Room Air Physical Exam General Appearance: no apparent distress Eyes: normal inspection ENT: hearing grossly normal Neck: no JVD Respiratory/Chest: no respiratory distress, no accessory muscle use Cardiovascular: no JVD Extremities: normal inspection Neurologic/Psychiatric: alert, normal mood/affect, oriented x 3 Skin: normal color Laboratory Results Last 24 Hours Test 12/23/17 05:11 White Blood Count 7.06 K/uL Red Blood Count 3.85 M/uL Hemoglobin 11.4 g/dL Hematocrit 32.3 % Mean Corpuscular Volume 83.9 fL Mean Corpuscular Hemoglobin 29.6 pg Mean Corpuscular Hemoglobin Concent 35.3 g/dl Platelet Count 261 K/uL Mean Platelet Volume 9.6 fL RDW Standard Deviation 43.3 fL RDW Coefficient of Variation 14.1 % Nucleated RBC Absolute Count (auto) 0.03 K/uL Neutrophils % (Manual) 52.2 % Lymphocytes % (Manual) 23.5 % Monocytes % (Manual) 18.3 % Metamyelocytes % 4.3 % Myelocytes % 1.7 % Nucleated Red Blood Cells % 0.4 % Neutrophils # (Manual) 3.69 K/uL Total Absolute Neutrophils 3.69 K/uL Lymphocytes # (Manual) 1.66 K/uL Total Absolute Lymphocytes 1.66 K/uL Monocytes # (Manual) 1.29 K/uL Metamyelocytes # 0.30 K/uL Myelocytes # 0.12 K/uL Dohle Bodies 3+ Echinocytes 1+ Prothrombin Time 13.4 SECONDS Prothromb Time International Ratio 1.3 Sodium Level 134 mmol/L Potassium Level 3.9 mmol/L Chloride Level 106 mmol/L Carbon Dioxide Level 22 mmol/L Anion Gap 6.0 mmol/L Blood Urea Nitrogen 35 mg/dl Creatinine 1.07 mg/dl Est Creatinine Clear Calc Drug Dose 59.2 ml/min Estimated GFR () 80.5 Estimated GFR (Non- 69.5 BUN/Creatinine Ratio 32.3 Random Glucose 185 mg/dl Calcium Level 8.2 mg/dl Total Bilirubin 0.7 mg/dl Aspartate Amino Transf (AST/SGOT) 15 U/L Alanine Aminotransferase (ALT/SGPT) 23 U/L Alkaline Phosphatase 143 U/L Total Protein 6.1 gm/dl Albumin 2.3 gm/dl Globulin 3.8 gm/dl Albumin/Globulin Ratio 0.6 Assessment and Plan POD #2 s/p TURP. AFVSS. Pt has remained stable in the ICU. Will transfer to med/surg this morning. Continue IV abx pending culture sensitivities. Hopeful for d/c home tomorrow if remaining stable and cultures finalized. Continued [facility] stay due to: fever Discharge planning: home
[2017-12-23] MEDS: SODIUM CHLORIDE 0.9% 1000ML 1,000 ML IV SCH ×2 (08:29→16:58)
[2017-12-23] MEDS: DEXAMETHASONE 4 MG TAB PO SCH ×2 (08:30→21:35)
[2017-12-23] MEDS: VANCOMYCIN INJ 1,250 MG in SODIUM CHLORIDE 0.9% 250ML 250 ML IV SCH (08:30)
[2017-12-23] MEDS: TIMOLOL MALEATE 0.5% OP SOLN 5 ML BTL OPB SCH ×2 (08:30→21:31)
[2017-12-23] MEDS ORDERED: DOCUSATE SODIUM 100 MG CAP ONE (08:34)
[2017-12-23] MEDS: DOCUSATE SODIUM 100 MG CAP PO SCH ×2 (08:35→21:00)
[2017-12-23] MEDS ORDERED: CIPROFLOXACIN 500 MG TAB PO SCH (11:00)
--- NOTE | 2017-12-23 11:01 | Family Medicine Progress Note ---
Progress Note Date of Service Dec 23, 2017. Subjective Pt evaluation today including: conversation w/ patient, physical exam, chart review, lab review, review of studies, conversation w/ sr risk management consultant, review of inpatient medication list Patient only speaks [place], but communicates with gestures and some common words. Also communicated via [employer] text skin drier on phone. Patient states he is well. He denies any discomfort currently. No complaints of CP, difficulty breathing, no abdominal pain. He is tolerating diet without nausea or vomiting. ROS is unremarkable except as noted above. Objective Vital Signs Date Time Temp Pulse Resp B/P (MAP) Pulse Ox O2 Delivery O2 Flow Rate FiO2 12/23/17 08:00 36.5 89 20 128/104 (112) 92 Room Air 12/23/17 08:00 Room Air 12/23/17 04:00 36.7 88 20 132/82 (99) 92 Room Air 12/23/17 04:00 92 Room Air 12/22/17 23:59 91 Room Air 12/22/17 23:39 36.8 92 22 129/90 (103) 91 Room Air 12/22/17 20:00 93 Room Air 12/22/17 20:00 36.8 99 20 140/91 (107) 93 Room Air 12/22/17 16:00 Room Air 12/22/17 16:00 36.9 90 16 132/75 (94) 94 Room Air 12/22/17 12:00 Room Air 12/22/17 12:00 37.0 86 18 136/90 (105) 93 Room Air Physical Exam Notes: General Appearance: WD/WN, no apparent distress Eyes: normal inspection ENT: hearing grossly normal Neck: supple Respiratory/Chest: lungs clear, normal breath sounds, no respiratory distress, no accessory muscle use Cardiovascular: regular rate, rhythm, no murmur Abdomen: normal bowel sounds, non tender, soft, + pertinent finding (Cuevas in place, urine pinkish in color) Extremities: no pedal edema, no calf tenderness Neurologic/Psychiatric: alert, normal mood/affect Skin: normal color, warm/dry, no rash Laboratory Results Results Past 24 Hours Test 12/23/17 05:11 Range/Units White Blood Count 7.06 4.8-10.8 K/uL Red Blood Count 3.85 4.7-6.1 M/uL Hemoglobin 11.4 14.0-18.0 g/dL Hematocrit 32.3 42-52 % Mean Corpuscular Volume 83.9 80-100 fL Mean Corpuscular Hemoglobin 29.6 25-34 pg Mean Corpuscular Hemoglobin Concent 35.3 32-36 g/dl Platelet Count 261 130-400 K/uL Mean Platelet Volume 9.6 7.4-10.4 fL RDW Standard Deviation 43.3 36.4-46.3 fL RDW Coefficient of Variation 14.1 11.5-14.5 % Nucleated RBC Absolute Count (auto) 0.03 0-0 K/uL Neutrophils % (Manual) 52.2 % Lymphocytes % (Manual) 23.5 % Monocytes % (Manual) 18.3 % Metamyelocytes % 4.3 % Myelocytes % 1.7 % Nucleated Red Blood Cells % 0.4 % Neutrophils # (Manual) 3.69 1.4-6.5 K/uL Total Absolute Neutrophils 3.69 1.4-6.5 K/uL Lymphocytes # (Manual) 1.66 1.2-3.4 K/uL Total Absolute Lymphocytes 1.66 1.2-3.4 K/uL Monocytes # (Manual) 1.29 0.11-0.59 K/uL Metamyelocytes # 0.30 0-0 K/uL Myelocytes # 0.12 0-0 K/uL Dohle Bodies 3+ Echinocytes 1+ Prothrombin Time 13.4 9.0-12.0 SECONDS Prothromb Time International Ratio 1.3 0.9-1.1 Sodium Level 134 136-145 mmol/L Potassium Level 3.9 3.5-5.1 mmol/L Chloride Level 106 98-107 mmol/L Carbon Dioxide Level 22 21-32 mmol/L Anion Gap 6.0 3-11 mmol/L Blood Urea Nitrogen 35 7-18 mg/dl Creatinine 1.07 0.60-1.40 mg/dl Est Creatinine Clear Calc Drug Dose 59.2 ml/min Estimated GFR () 80.5 Estimated GFR (Non- 69.5 BUN/Creatinine Ratio 32.3 10-20 Random Glucose 185 70-99 mg/dl Calcium Level 8.2 8.5-10.1 mg/dl Total Bilirubin 0.7 0.2-1 mg/dl Aspartate Amino Transf (AST/SGOT) 15 15-37 U/L Alanine Aminotransferase (ALT/SGPT) 23 12-78 U/L Alkaline Phosphatase 143 45-117 U/L Total Protein 6.1 6.4-8.2 gm/dl Albumin 2.3 3.4-5.0 gm/dl Globulin 3.8 2.5-4.0 gm/dl Albumin/Globulin Ratio 0.6 0.9-2 Assessment and Plan 72 yo m with h/o metastatic prostate cancer that is suffering from neutropenic fever with no known source and s/p cystoscopy and TURP Neutropenic fever/ Hypotension - CBC revealed ANC 0.01. influenza negative. Patient is in middle of chemotx. ID and heme/onc consulted - recs appreciated. Patient s/p 1 dose of filgrastim - Discontinued vancomycin and zosyn given patient's fever more likely to be secondary to procedure and no infectious source found. - PO Ciprofloxacin 500mg q12h x 7 days should be an adequate empiric coverage for uncomplicated UTI. Patient has no symptoms, has Cuevas in place - Trace final urine and blood cultures, although both are negative for concerning sources of infection currently - BP WNL. thus IVF can be discontinued unless necessary for post-surgical benefits - Tylenol PRN fever - avoid Toradol for concern of potentially developing thrombocytopenia - Neutropenic precautions - Follow up with heme/onc advised upon discharge POD 2 s/p TURP and bladder stone removal for retention and gross hematuria - Fentanyl held as the patient was hypotensive, can consider restarting given vitals stable - Morphine PRN pain currently as per urology - Continue dexamethasone and prednisone without stress dosing as vitals stable - Cuevas in situ - removal as per urology. Metastatic prostate cancer - Continue Casodex Glaucoma - Continue timolol VTE ppx - SCDs At this time, the medical team will sign off. If there are any further questions or concerns, please feel free to consult us again. Thank you for allowing us to share in the care of this patient. ADDENDUM: Cipro converted to 7 day course of doxycycline 100mg BID due to nausea. Also ordered compazine for breakthrough nausea. Resident Physician Supervision Note: I interviewed and examined the patient. Discussed with Dr. Cavanaugh and agree with findings and plan as documented in the note. Any exceptions or clarifications are listed here: None Documented By: Damien Zamora no new problems except as above. no fever. WBC improved vitals noted nad breathing unlabored neutropenic fever - resolved. downgrade abx as above since negative cultures, medically appears stable for dc w outpt PCP, heme/onc and urology f/u - will sign off. can be available as needed. Resident Tracking Resident Involvement: Resident Care Provided Care Provided: Adult Hospital Medicine
[2017-12-23] MEDS: MoRPHine SULFATE 2 MG/ML CARP IV PRN (16:58)
[2017-12-23] MEDS ORDERED: NURSING VERBAL MED ORDER ONE (18:15)
[2017-12-23] MEDS ORDERED: PROCHLORPERAZINE MALEATE 5 MG TAB PO PRN (18:30)
[2017-12-23] MEDS ORDERED: BELLADONNA/OPIUM SUPP 60 MG SUPP PR PRN (18:45)
[2017-12-23] MEDS ORDERED: HYDROmorphone INJ 1 MG/ML SYR IV PRN (18:45)
[2017-12-23] MEDS: DOXYCYCLINE HYCLATE 100 MG CAP PO SCH (21:35)
[2017-12-23] MEDS: BICALUTAMIDE 50 MG TAB PO SCH (21:37)
[2017-12-24] MEDS: SODIUM CHLORIDE 0.9% 1000ML 1,000 ML IV SCH ×2 (02:53→13:40)
[2017-12-24 03:11] VITALS: BP 179/100; PULSE 98; TEMP 36.8; O2SAT 91
[2017-12-24 06:15] VITALS: BP 151/84
[2017-12-24 07:35] VITALS: BP 155/97; PULSE 81; TEMP 37.2; O2SAT 91
[2017-12-24 07:41] LABS: HEMATOCRIT 32.5 % (42-52); HEMOGLOBIN 11.6 g/dL (14.0-18.0); MEAN CELL VOLUME 84.6 fL (80-100); MEAN CORPUSCULAR HEMOGLOBIN 30.2 pg (25-34); MEAN CORPUSCULAR HGB CONC 35.7 g/dl (32-36); MEAN PLATELET VOLUME 9.4 fL (7.4-10.4); NUCLEATED RED BLOOD CELL ABS 0.06 K/uL (0-0); PLATELET COUNT 234 K/uL (130-400); RED CELL DISTRIBUTION WIDTH CV 14.6 % (11.5-14.5); WHITE BLOOD COUNT 21.16 K/uL (4.8-10.8)
[2017-12-24 08:04] LABS: CREATININE 0.83 mg/dl (0.60-1.40)
[2017-12-24 08:09] LABS: HEMOGLOBIN A1C 6.1 % (4.5-5.6)
--- NOTE | 2017-12-24 08:57 | Progress Note ---
Subjective Date of Service: Dec 24, 2017. Subjective Pt evaluation today including: conversation w/ patient, chart review, lab review Voiding: leos catheter in place (patent, draining dark yellow urine this morning. ) 72 yo male s/p TURP. Pt reports some vomiting yesterday (basin with murky brownish fluid noted at the bedside), but otherwise feels well this morning. Denies nausea at this time. White count has increased to 21.16 this morning, but G-CSF provided this admission for his neutropenia. Blood and urine cultures are preliminarily negative. Problem List Medical Problems: (1) Urinary retention Status: Acute Review of Systems Constitutional: No fever, No chills Respiratory: No shortness of breath Cardiac: No chest pain Abdomen: No pain, No nausea, No vomiting Male : No hematuria Heme: No abnormal bleeding/bruising Objective Vital Signs Date Time Temp Pulse Resp B/P (MAP) Pulse Ox O2 Delivery O2 Flow Rate FiO2 12/24/17 08:20 Room Air 12/24/17 07:35 37.2 81 16 155/97 (116) 91 Room Air 12/24/17 06:15 151/84 (106) 12/24/17 03:11 36.8 98 16 179/100 (126) 91 Room Air 12/23/17 23:49 Room Air 12/23/17 22:25 37.2 83 16 159/88 (111) 91 Room Air 12/23/17 22:01 80 177/97 (123) 94 Room Air 12/23/17 19:50 181/93 (122) Room Air 12/23/17 18:40 Room Air 12/23/17 18:34 36.9 93 16 188/101 (130) 92 Room Air 12/23/17 18:01 102 21 183/120 (141) 92 Room Air 12/23/17 17:41 96 22 189/120 (143) 92 Room Air 12/23/17 16:01 36.8 84 23 189/108 (135) 91 Room Air 12/23/17 16:00 Room Air 12/23/17 15:55 91 22 161/116 (131) 91 Room Air 12/23/17 15:47 90 25 184/120 (141) 93 Room Air 12/23/17 12:00 36.6 88 20 159/98 (118) 95 Room Air 12/23/17 12:00 Room Air Physical Exam General Appearance: no apparent distress Eyes: normal inspection ENT: hearing grossly normal Neck: no JVD Respiratory/Chest: no respiratory distress, no accessory muscle use Cardiovascular: no JVD Extremities: normal inspection Neurologic/Psychiatric: alert, normal mood/affect, oriented x 3 Skin: normal color Laboratory Results Last 24 Hours Test 12/24/17 07:12 White Blood Count 21.16 K/uL Red Blood Count 3.84 M/uL Hemoglobin 11.6 g/dL Hematocrit 32.5 % Mean Corpuscular Volume 84.6 fL Mean Corpuscular Hemoglobin 30.2 pg Mean Corpuscular Hemoglobin Concent 35.7 g/dl Platelet Count 234 K/uL Mean Platelet Volume 9.4 fL RDW Standard Deviation 45.0 fL RDW Coefficient of Variation 14.6 % Nucleated RBC Absolute Count (auto) 0.06 K/uL Neutrophils % (Manual) 72.1 % Lymphocytes % (Manual) 12.2 % Monocytes % (Manual) 11.3 % Metamyelocytes % 0.9 % Myelocytes % 3.5 % Nucleated Red Blood Cells % 0.3 % Neutrophils # (Manual) 15.26 K/uL Total Absolute Neutrophils 15.26 K/uL Lymphocytes # (Manual) 2.58 K/uL Total Absolute Lymphocytes 2.58 K/uL Monocytes # (Manual) 2.39 K/uL Metamyelocytes # 0.19 K/uL Myelocytes # 0.74 K/uL Toxic Granulation 1+ Dohle Bodies 1+ Red Blood Cell Morphology Unremarkable Creatinine 0.83 mg/dl Est Creatinine Clear Calc Drug Dose 76.3 ml/min Estimated GFR () 102.6 Estimated GFR (Non- 88.5 Estimated Average Glucose 128 mg/dl Hemoglobin A1c 6.1 % Assessment and Plan POD #3 s/p TURP. AFVSS. Fever and neutropenia have resolved. Will monitor for further n/v this morning. Likely d/c home later today if he remains stable. D/c home with 7 days of Cipro and Bactrim. He will also go home with his leos catheter. Continued [facility] stay due to: fever Discharge planning: home
[2017-12-24] MEDS ORDERED: CIPR-255 PO (08:58)
[2017-12-24] MEDS ORDERED: PHEN-876 PO (09:04)
[2017-12-24] MEDS ORDERED: DTR/5 PO (09:04)
[2017-12-24] MEDS ORDERED: SULF800T23 PO (09:04)
[2017-12-24] MEDS: TIMOLOL MALEATE 0.5% OP SOLN 5 ML BTL OPB SCH (09:12)
[2017-12-24] MEDS: DOXYCYCLINE HYCLATE 100 MG CAP PO SCH (09:12)
[2017-12-24] MEDS: DOCUSATE SODIUM 100 MG CAP PO SCH (09:12)
[2017-12-24] MEDS: DEXAMETHASONE 4 MG TAB PO SCH (09:12)
--- NOTE | 2017-12-24 09:15 | Clinical Documentation Query ---
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 The patient had an uneventful surgery and post op the patient was found to be febrile > 38C. A consult was placed for hospitalist at 2310 for fever and neutropenia. SIRS criteria: Temp < 96.8*F/36*C or > 100.4*F/38*C Resps > 20 breaths/min Pulse > 90 bpm PaCO2 <32 mmHg WBC > 12K or < 4K or Bands > 10% In your clinical opinion is this patient being managed for: ( ) Sepsis ( ) Not Agree ( ) Other explanation of clinical findings (Please Explain) ( ) Unable to determine (Please Define) ( ) Need to Discuss Not my patient, never saw the patient, team singed off prior me seeing him The medical record reflects the following clinical findings, treatment, and risk factors. Clinical Indicators: Temp 39.2, pulse 128, respirations 24, WBC 21.16 Treatment: Telemetry, IV Piperacillin, IV Vancomycin, blood cultures Risk Factors: Age, s/p surgical event, s/p chemotherapy, indwelling catheter Please clarify and document your clinical opinion in the progress notes and discharge summary. Terms such as "probable", "suspected", "likely", "questionable", "possible", or "still to be ruled out" are acceptable. IF IN AGREEMENT, YOU MUST DOCUMENT ABOVE DIAGNOSTIC STATEMENT IN DAILY PROGRESS NOTES AND DISCHARGE SUMMARY. This document is not part of the patient's record. Thank You, Jade Engle RN [phone]
[2017-12-24] MEDS ORDERED: ONDA8TAB6 PO (09:23)
--- NOTE | 2017-12-24 09:53 | HEME/ONC PROGRESS NOTE ---
DATE: 12/24/2017 DIAGNOSES: 1. Neutropenic fever. 2. Nephrolithiasis. 3. Metastatic prostate cancer. SUBJECTIVE: The patient was seen and examined at bedside. Communication is limited because of language barrier. Vital signs are now stable. Nursing reports emesis that may or may not have occurred over the past 24 hours. The patient received a single dose of Neupogen with excellent response with a neutrophil count now in excess of 15,000. According to nursing, patient is tolerating diet and may be considered for discharge today. PHYSICAL EXAMINATION: GENERAL: A 72-year-old Romanian in no acute distress. VITAL SIGNS: Temperature 37.2, pulse 81, respiration 16, blood pressure 155/97. SKIN: Without rash or lesion. HEENT: Oral mucosa dry without buccal lesions or ulcerations. NECK: Supple. HEART: Regular rate and rhythm. LUNGS: Clear to auscultation bilaterally. ABDOMEN: Soft, nontender, nondistended. EXTREMITIES: Pneumatic device is in place. No clubbing, cyanosis or edema. NEUROLOGIC: Grossly intact. LABORATORY DATA: WBC count 21,160, hemoglobin 11.6, platelet count 234,000. Chemistries from yesterday, sodium 134, potassium 3.9, chloride 106, carbon dioxide 22, BUN 35, creatinine 1.07, albumin decreased at 2.3. IMPRESSION: 1. Nephrolithiasis. 2. Status post transurethral resection of the prostate. 3. Neutropenic fever. 4. Metastatic prostate cancer. 5. Hypoalbuminemia. PLAN: Mr. Barillas is a pleasant 72-year-old gentleman, currently under my care for metastatic prostate cancer. He recently received a course of Taxotere, which was added on to a total androgen blockade. His disease has responded favorably with PSA levels on decline. Adolfo has recovered from neutropenia. Agree with proceeding conversion to oral antibiotics, ciprofloxacin 500 mg p.o. b.i.d. is satisfactory. From a medical oncology standpoint, I have nothing further to add and we will ensure Adolfo is arranged for outpatient followup to effectively continue his treatment. We will need to encourage him to increase his protein intake. I trust he will follow up with urology as prescribed. Thank you for allowing us to participate in the care of this very pleasant gentleman. [facility] SHOREProsper
[2017-12-24 15:17] VITALS: BP 161/88; PULSE 72; TEMP 37.1; O2SAT 92
[2017-12-24] MEDS ORDERED: VANCOMYCIN TROUGH SCH (15:30)
--- NOTE | 2017-12-24 16:23 | Discharge Summary ---
Discharge Summary Date of Service Dec 24, 2017. Admission Date/Reason Dec 23, 2017 at 14:06 Benign Prostatic Hypertrophy. Discharge Date/Disposition Dec 21, 2017 Home Diagnosis Principal Diagnosis: Prostate Cancer. Obstructive Uropathy. Gross Hematuria. Bladder Stone. Secondary Diagnoses/Problems: Neutropenia. Fever. Procedure(s) Performed Cystolitholopaxy. TURP. Consultations Internal Medicine for Medical Management. Heme/Onc for neutropenia. Medication Reconciliation See Sheet. Admission Physical Exam As per Admitting History & Physical. Hospital Course Patient had been diagnosed with Metastatic prostate cancer. Found to have significant obstruction with bladder stone. Was developing recurrent episodes of gross hematuria. 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 Due to bleeding and stone with symptoms, patient was consented for stone removal and possible resection. A leos had been placed for drainage prior to procedure. Risks and benefits had been discussed. Patient was admitted for observation and underwent procedure. Stone was removed as well as large amount of debris from the bladder. The prostate was found to have severe obstruction and had considerable bleeding after manipulation of the stone. A TURP was completed to reduce obstruction and control bleeding. Patient tolerated procedure well. Post operatively patient was continued on continuous irrigation. Patient was observed during the post operative period. A CBC with diff found the patient to be profoundly neutropenic. He was monitored closely. Patient began to develop low grade fevers which then esculated. Tmax went to 39.4. Antibiotics were advanced, cultures taken, and imaging completed. Patient was moved to ICU due to lack of telemetry beds. POD1 patient was eating and drinking without issues. Urine cleared over night. Patient had no major complaints and did not have any further episodes of fever. He did develop some nausea. He was seen by medicine and oncology who assisted with management. IV antibiotics were continued. POD2 patient continued to improve. CBI had been stopped. Patient tolerated advancement of diet. Irrigation was titrated off. Patient increased activity and did well with diet and pain control. Patient continue to be clear of fevers. He did have some vomiting with nausea, which he attributed to medication causing heartburn and nausea. This was controlled. Cultures did not grow any pathogen. POD 3 Patient improved and was prepared for discharge. He was discharged to the care of family with catheter in place and plan for post op follow up. Plans to have dual coverage with PO antibiotics and medications for pain and nausea control. Plans for close monitoring and management of any issues. Discharge Instructions Please refer to the electronic Patient Visit Report (Discharge Instructions) for additional information.
[2017-12-24 16:26] VITALS: BP 161/88; PULSE 72; TEMP 37.1; O2SAT 92
== END 2017-12-24 17:38 | disposition home or self-care (01) | DRG 713 ==
LOC: C.ACU 07:02 → C.MSN 12:38 → ENRESERV 13:28 → C.MSW 14:43 → ENRESERV 23:56 → C.MSICU 12-22 00:57 → CANRESERV 12-23 08:59 → ENRESERV 12-23 08:59 → EDBEDREQSVC 12-23 09:22 → OBSVTOIN 12-23 14:06 → ENRESERV 12-23 15:36 → C.MSW 12-23 18:37
PROVIDERS: ADMIT Urology; ATTEND Urology
PROC: 0V508ZZ Destruction of Prostate, Via Natural or Artificial Opening Endoscopic (ICD-10-PCS; principal; 2017-12-21 08:45)
PROC: 0VB08ZX Excision of Prostate, Via Natural or Artificial Opening Endoscopic, Diagnostic (ICD-10-PCS; principal; 2017-12-21 08:45)
PROC: 0TFB8ZZ Fragmentation in Bladder, Via Natural or Artificial Opening Endoscopic (ICD-10-PCS; principal; 2017-12-21 08:45)
PROC: 0TCB8ZZ Extirpation of Matter from Bladder, Via Natural or Artificial Opening Endoscopic (ICD-10-PCS; principal; 2017-12-21 08:45)
DX: C61 Malignant neoplasm of prostate (principal); C79.51 Secondary malignant neoplasm of bone; C78.7 Secondary malignant neoplasm of liver and intrahepatic bile duct; C78.1 Secondary malignant neoplasm of mediastinum; N21.0 Calculus in bladder; R31.0 Gross hematuria; R33.8 Other retention of urine; Z79.899 Other long term (current) drug therapy; H40.9 Unspecified glaucoma; D70.9 Neutropenia, unspecified; I95.81 Postprocedural hypotension; R50.82 Postprocedural fever

== ENCOUNTER → 2018-02-11 | Outpatient (CLI) | payer OTHER ==
[~2018-02-11] MED LIST changes: -CEFAZOLIN 2000MG IV PUSH 10 ML IV SCH; +CIPR-255 PO; +DRGTP12; +DXM4 PO; -LACTATED RINGER'S 1000ML 1,000 ML IV SCH; +ONDA-170 PO; +OPTIRAY 320 IV PRN; +PHEN-876 PO; +PRED-301 PO
--- NOTE | 2018-02-11 12:57 | DIAGNOSTIC IMAGING REPORT ---
CT OF THE CHEST WITH IV CONTRAST CLINICAL HISTORY: Prostate cancer. COMPARISON STUDY: Chest CT October 01, 2017 and chest radiograph December 21, 2017. PET/CT October 13, 2017. TECHNIQUE: Following IV administration of 94 mL of Optiray-320, helical axial images of the chest were obtained. Sagittal and coronal reconstructions were viewed as well as maximal intensity projections on an independent 3-D workstation. A dose lowering technique was utilized adhering to the principles of ALARA. CT DOSE: 797.06 mGy.cm FINDINGS: No enlarged axillary, mediastinal or hilar lymph nodes are present. An enlarged right paratracheal lymph node shown on CT of October 01, 2017 has significantly decreased in size. The heart is moderately enlarged. There is no pericardial effusion. No pneumothorax or pleural effusion is noted. There is no consolidation to suggest pneumonia. A few small right lung nodules have likely slightly decreased in size since exam of October 01, 2017. These include a 5 mm right upper lobe nodule shown on image 87 of 281 and a 4 mm right middle lobe nodule shown on image 155. There are no new pulmonary nodules. The conspicuity/extent of numerous sclerotic metastases is increased since chest CT of October 01, 2017. There is no pathologic fracture. No epidural extension of tumor is identified by CT. The abdomen and pelvis will be reported separately however extensive hepatic metastases are again noted. IMPRESSION: 1. Interval decrease in size of an enlarged mediastinal lymph nodes since chest CT of October 01, 2017 and PET/CT of October 13, 2017. No pathologic lymphadenopathy with the chest. 2. Slight decrease in size of a few small right lung nodules since chest CT of October 01, 2017. No new lung nodules. 3. Numerous blastic metastases which have increased in extent since chest CT of October 01, 2017 and are similar to abdominal CT of December 22, 2017. Electronically signed by: Galen Garcia M.D. 02/11/2018 12:55 PM Dictated Date/Time: 02/11/2018 12:41 PM
--- NOTE | 2018-02-11 13:04 | DIAGNOSTIC IMAGING REPORT ---
CT SCAN OF THE ABDOMEN AND PELVIS WITH IV CONTRAST CLINICAL HISTORY: Prostate cancer. COMPARISON STUDY: Abdominal CT dated 12/22/2017 and 10/01/2017. TECHNIQUE: Following the IV administration of 94 cc of Optiray 320, CT scan of the abdomen and pelvis is performed from the lung bases to the proximal femora. Images are reviewed in the axial, sagittal, and coronal planes. IV contrast was administered without complication. A dose lowering technique was utilized adhering to the principles of ALARA. FINDINGS: Lung bases: The heart is enlarged and without pericardial effusion. The coronary arteries are densely calcified. No airspace consolidation or pleural effusion is seen in either lung base. There is dependent scarring/atelectasis. A 5 mm right middle lobe pulmonary nodule is seen on image #5. Liver: The contrast-enhanced liver is normal in size. There is mild lobulation of the hepatic contour, likely related to metastatic disease. There has likely been modest progression of diffuse/multifocal hepatic metastatic disease as compared to 12/22/2017. The largest lesion is located in the right lobe and measures up to 4 cm. Foci of central low-attenuation within the hepatic lesions may represent treatment-related necrosis. There is no intrahepatic biliary ductal dilatation. The hepatic veins and portal veins are patent. Gallbladder: Unremarkable. Spleen: Normal in size and attenuation. Pancreas: Moderately atrophic and grossly unremarkable. Adrenal glands: Unremarkable. Kidneys: The contrast enhanced kidneys history cortical atrophy and are without hydronephrosis. The kidneys enhance symmetrically. A circumaortic left renal vein is incidentally noted. Numerous bilateral renal cysts measure up to 7 cm. Additional subcentimeter cortical hypodensities also likely represent cysts but are too small for definitive characterization. Abdominal vasculature: There is moderate to advanced atherosclerotic calcification and ectasia of the abdominal aorta. Bowel: There is mild to moderate colonic fecal retention. No bowel obstruction is seen. The appendix is well-visualized and normal. Peritoneum: There is no intraperitoneal free air or abdominal ascites. Lymphadenopathy: None. Pelvic viscera: The prostate gland is enlarged and heterogeneous, measuring 5.1 cm in transverse time. A portion of the bladder extends inferiorly and indents the superior margin of the prostate gland as seen on image #417. The bladder wall is thickened and trabeculated. Small bladder diverticula are noted. There are bilateral fat-containing inguinal hernias. Skeletal structures: The skeletal structures are osteopenic. Findings of diffuse/multifocal osteoblastic metastatic disease have not appreciably changed from 12/18/2013. The largest lesions are seen throughout the sacrum, in the right ilium, and the visualized left scapula. IMPRESSION: 1. Although difficult to compare due to lack of IV contrast on prior examination, there has likely been modest progression of multifocal hepatic metastatic disease as compared to 12/22/2017. These lesions have significantly decreased in size from 10/01/2017. 2. There is been no significant change in the appearance of diffuse/multifocal osteoblastic metastatic disease from 12/22/2017. 3. No retroperitoneal lymphadenopathy is identified. 4. The prostate gland is enlarged and heterogeneous. 5. Cardiomegaly. 6. A 5 mm right middle lobe pulmonary nodule is unchanged. Electronically signed by: Humberto Crane M.D. 02/11/2018 1:02 PM Dictated Date/Time: 02/11/2018 12:41 PM
== END | disposition home or self-care (01) ==
LOC: C.CTS 11:37
PROVIDERS: ATTEND Internal Medicine Hematology & Oncology
DX: C61 Malignant neoplasm of prostate (principal); I51.7 Cardiomegaly; R91.1 Solitary pulmonary nodule

== ENCOUNTER → 2018-03-17 | Day surgery (SDC) | payer OTHER ==
[2018-03-10 15:29] VITALS: Ht 170.2 cm; Wt 75.0 kg
[~2018-03-17] VITALS: Ht 170.2 cm; Wt 75.0 kg
[~2018-03-17] MED LIST changes: -CIPR-255 PO; -DRGTP12; +DRGTP12 EXT; +FENTANYL CITRATE INJ 50 MCG/1 ML 2 ML VIAL ONE; +LIDOCAINE HCL 2% 2 ML VIAL (20MG/ML) ONE; -ONDA-170 PO; +ONDA8TAB12 PO; -OPTIRAY 320 IV PRN; -PHEN-876 PO; +PROPOFOL IV EMULSION 10 MG/ML 20 ML VIAL IV ONE
--- NOTE | 2018-03-17 13:45 | Endo History and Physical ---
History & Physical Date of Service: Mar 17, 2018. Chief Complaint: blood in stool Referring Physician: Dr. Saqib Pike History of Present Illness For EGD Past Medical History Hypertension Past Surgical History Hx Cardiac Surgery: No Hx Internal Defibrillator: No Hx Pacemaker: No Hx Abdominal Surgery: No Hx of Implantable Prosthesis: No Hx Post-Op Nausea and Vomiting: No ( ) Hx Cancer Surgery: Yes (TURP) Hx Thoracic Surgery: No Hx Orthopedic: No Hx Urinary Tract Surgery: No Family History None Social History Smoking Status: Never Smoker Hx Substance Use: No Hx Alcohol Use: No Allergies Coded Allergies: Ibuprofen (Verified Allergy, Mild, rash on neck, 03/10/18) Current Medications Reported Home Medications Medications Dose Route/Sig Max Daily Dose Days Date Category Zofran (Ondansetron Hcl) 8 Mg Tab 8 Mg PO PRN PRN 03/10/18 Reported Casodex (Bicalutamide) 50 Mg Tab 50 Mg PO DAILY AT 4PM 03/10/18 Reported Dexamethasone 4 Mg Tab 8 Mg PO BID 12/21/17 Reported Prednisone 5 Mg Tab 5 Mg PO BID 12/21/17 Reported Fentanyl 12 Mcg Tdsy 12 Mcg EXT DIRECTED 12/21/17 Reported Timolol 0.5% Oph Soln 15 Ml (Timolol Maleate) 15 Ml Soln 1 Drop OPB BID 12/07/17 Reported Vital Signs Weight (Kilograms): 75 Height (Feet): 5 Height (Inches): 7 Date Time Temp Pulse Resp B/P (MAP) Pulse Ox O2 Delivery O2 Flow Rate FiO2 03/17/18 13:35 36.9 95 16 139/84 (102) 95 Room Air Physical Exam General Appearance: WD/WN Respiratory/Chest: Respiratory effort: no dyspnea Cardiovascular: Heart Auscultation: RRR Abdomen: Inspection & Palpation: soft Assessment and Plan Blood in stool for colonoscopy
--- NOTE | 2018-03-17 15:22 | Discharge Instructions ---
Endoscopy Patient Instructions Date / Procedure(s) Performed Mar 17, 2018. EGD Allergy Information Coded Allergies: Ibuprofen (Verified Allergy, Mild, rash on neck, 03/10/18) Discharge Date / Findings Mar 17, 2018. esophagitis, antral erosion Medication Instructions Restart Stopped Medication(s): resume meds Reported Home Medications Medications Dose Route/Sig Max Daily Dose Days Date Category Zofran (Ondansetron Hcl) 8 Mg Tab 8 Mg PO PRN PRN 03/10/18 Reported Casodex (Bicalutamide) 50 Mg Tab 50 Mg PO DAILY AT 4PM 03/10/18 Reported Dexamethasone 4 Mg Tab 8 Mg PO BID 12/21/17 Reported Prednisone 5 Mg Tab 5 Mg PO BID 12/21/17 Reported Fentanyl 12 Mcg Tdsy 12 Mcg EXT DIRECTED 12/21/17 Reported Timolol 0.5% Oph Soln 15 Ml (Timolol Maleate) 15 Ml Soln 1 Drop OPB BID 12/07/17 Reported Provider Instructions Activity Restrictions - No exercising or heavy lifting for 24 hours. - Do not drink alcohol the day of the procedure. - Do not drive a car or operate machinery until the day after the procedure. - Do not make any important decisions or sign important papers in 24 hours after the procedure. Following Day: - Return to full activity which may include returning to work/school. Diet Start your diet with liquids and light foods (jello, soup, juice, toast). Then eat your usual diet if not nauseated. Treatment For Common After Affects For mild abdominal pain, bloating, or excessive gas: - Rest - Eat lightly - Lie on right side Begin Prilosec 20 mg po daily Follow-Up Information Follow-up with Dr. Saqib Pike as scheduled Anesthesia Information What You Should Know You have had a procedure that required some medicine to reduce anxiety and discomfort. This treatment is called moderate sedation. After receiving the treatment, you may be sleepy, but you will be able to breathe on your own. The effects of the treatment may last for several hours. Follow these instructions along with Activity/Diet recommendations noted above: * Do NOT do anything where dizziness or clumsiness would be dangerous. * Rest quietly at home today, then you can be up and about tomorrow. * Have a responsible person stay with you the rest of today. * You may have had an I.V. today. If so, you may take the dressing off later today. Recommendations Call your doctor if: * Trouble breathing * Continuous vomiting for more than 24 hours * Temperature above 101 degrees * Severe abdominal pain or bloating * Pain not relieved by pain medicine ordered * There is increased drainage or redness from any incision * A large amount of rectal bleeding greater than 2-3 tablespoons. (If you had a polyp/s removed or have hemorrhoids, a small amount of blood - from the rectum is to be expected.) * You have any unanswered questions or concerns. IN THE EVENT OF A SERIOUS EMERGENCY, GO TO THE NEAREST EMERGENCY ROOM Your discharge instructions were prepared by provider César Albright. Patient Instructions Signature Page Adolfo Bairllas Patient (or Guardian) Signature/Date: I have read and understand the instructions given to me by my caregivers. Caregiver/RN/Doctor Signature/Date: The above-named patient and/or guardian has received patient instructions on this date. + Original Patient Signature Page (only) stays with chart. Please make copy for patient.
--- NOTE | 2018-03-17 15:26 | GI REPORT ---
Procedure Date: 03/17/2018 1:43 PM Procedure: Upper GI endoscopy Indications: Heme positive stool Medicines: Fentanyl 100 micrograms IV, Propofol total dose 100 mg IV, Lidocaine 40 mg IV Complications: No immediate complications. Estimated Blood Loss: Estimated blood loss: none. Procedure: Pre-Anesthesia Assessment: - Prior to the procedure, a History and Physical was performed, and patient medications, allergies and sensitivities were reviewed. The patient's tolerance of previous anesthesia was reviewed. - The risks and benefits of the procedure and the sedation options and risks were discussed with the patient. All questions were answered and informed consent was obtained. After obtaining informed consent, the endoscope was passed under direct vision. Throughout the procedure, the patient's blood pressure, pulse, and oxygen saturations were monitored continuously. The scope was introduced through the mouth, and advanced to the second part of duodenum. The upper GI endoscopy was accomplished without difficulty. The patient tolerated the procedure well. Findings: LA Grade D (one or more mucosal breaks involving at least 75% of esophageal circumference) esophagitis with no bleeding was found. A single non-bleeding localized erosion was found in the prepyloric region of the stomach. There were no stigmata of recent bleeding. The examined duodenum was normal. Impression: - LA Grade D reflux esophagitis. - Gastric erosion without bleeding. - Normal examined duodenum. - No specimens collected. Recommendation: - Discharge patient to home (ambulatory). - Use Prilosec (omeprazole) 20 mg PO daily indefinitely. - Return to referring physician as previously scheduled. César Albright M.D. César Albright MD 03/17/2018 3:25:42 PM This report has been signed electronically. Note Initiated On: 03/17/2018 1:43 PM I attest to the content of the Intraoperative Record and orders documented therein, exceptions below
--- NOTE | 2018-03-17 15:53 | Anesthesiology Progress Note ---
Anesthesia Post Op Note Date & Time Mar 17, 2018 at 15:53 Vital Signs Pain Intensity: 2 Vital Signs Past 12 Hours Date Time Temp Pulse Resp B/P (MAP) Pulse Ox O2 Delivery O2 Flow Rate FiO2 03/17/18 13:35 36.9 95 16 139/84 (102) 95 Room Air Notes Mental Status: alert / awake / arousable, participated in evaluation Pt Amnestic to Procedure: Yes Nausea / Vomiting: adequately controlled Pain: adequately controlled Airway Patency, RR, SpO2: stable & adequate BP & HR: stable & adequate Hydration State: stable & adequate Anesthetic Complications: no major complications apparent
[2018-03-17 15:58] VITALS: BP 135/90; PULSE 86; O2SAT 94
== END | disposition home or self-care (01) ==
LOC: C.GI 13:18
PROVIDERS: ATTEND Internal Medicine Gastroenterology
DX: K92.1 Melena (principal); Z88.6 Allergy status to analgesic agent; Z79.899 Other long term (current) drug therapy; I10 Essential (primary) hypertension; E78.5 Hyperlipidemia, unspecified; Z85.46 Personal history of malignant neoplasm of prostate; K21.0 Gastro-esophageal reflux disease with esophagitis

== ENCOUNTER 2018-03-30 22:03 | Inpatient (IN) | payer OTHER ==
[~2018-03-30] VITALS: Ht 167.6 cm; Wt 68.4 kg
[~2018-03-30 22:03] MED LIST changes: -FENTANYL CITRATE INJ 50 MCG/1 ML 2 ML VIAL ONE; -LIDOCAINE HCL 2% 2 ML VIAL (20MG/ML) ONE; -PROPOFOL IV EMULSION 10 MG/ML 20 ML VIAL IV ONE
[2018-03-30] MEDS ORDERED: SODIUM CHLORIDE 0.9% 1000ML 1,000 ML IV STA (22:53)
--- NOTE | 2018-03-30 23:06 | EMERGENCY ROOM VISIT NOTE ---
History Report prepared by Ana: Brandyn Sampson Under the Supervision of: Dr. Armand Warner M.D. First contact with patient: 22:46 Chief Complaint: FEVER Stated Complaint: FEVER History of Present Illness The patient is a 72 year old male who presents to the Emergency Room with complaints of persistent general fever of 38.2 Centigrade since 2099 today. He has a history of prostate cancer. The patient speaks French and his family is translating for him. He called his doctor and was advised to come to the ED for evaluation. He reports a mild headache and mild sore throat. He denies any cough or chest pain. He notes general weakness. He states he had back pain yesterday, though denies any current back pain. He reports low abdominal pain and pain with urination. Per family, the patient has frequent urination every twenty minutes since last night. He denies any leg pain or leg swelling. He denies any other medical problems. He is currently being treated with chemotherapy and was lasted treated via IV three weeks ago. He is not currently being treated with radiation therapy. Source of History: patient Onset: 2099 today Position: other (general ) Symptom Intensity: 38.2 Centigrade Quality: other (fever) Timing: other (persistent) Associated Symptoms: + headache, + sorethroat, + abdominal pain, + back pain , + urinary symptoms (pain with urination), + weakness (general), No cough, No chest pain Note: Denies any leg pain or leg swelling. Review of Systems See HPI for pertinent positives & negatives. A total of 10 systems reviewed and were otherwise negative. Past Medical & Surgical Medical Problems: (1) BPH w urinary obs/LUTS (2) Chronic Sinusitis Nos (3) Fever (4) Helicobacter Pylori [H. 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 Nurse's notes were reviewed and I agree with. Family History FHx: cancer Social History Smoking Status: Never Smoker Drug Use: none Marital Status: Housing Status: lives with family Occupation Status: unemployed Current/Historical Medications Scheduled Abiraterone Acetate (Zytiga), 500 MG PO BID Prednisone (Prednisone), 5 MG PO BID Timolol Maleate (Timolol 0.5% Oph Soln 15 Ml), 1 DROP OPB BID Allergies Coded Allergies: Ibuprofen (Verified Allergy, Mild, rash on neck, 03/10/18) Physical Exam Vital Signs Date Time Temp Pulse Resp B/P (MAP) Pulse Ox O2 Delivery O2 Flow Rate FiO2 03/31/18 01:57 84 18 119/75 96 Room Air 03/31/18 00:16 87 03/30/18 23:25 Room Air 03/30/18 23:24 90 18 129/80 94 Room Air 03/30/18 22:16 36.9 105 20 125/83 97 Room Air Physical Exam General: Non-ill appearing older male in no acute distress. HEENT: Normal cephalic atraumatic. Pupils are equal round and reactive to light. Extraocular movements are intact. Oropharynx is pink with moist mucous membranes. No swelling of the mouth lips or tongue. Neck: Supple with a midline trachea. No meningeal signs or stiffness, no JVD or bruits. No Stridor. Chest: Clear to auscultation bilaterally. No wheezes or rhonchi. No increased work of breathing. Heart: regular rate and rhythm. Abdomen: Soft, nondistended without rebound guarding or rigidity. Minimal tenderness to suprapubic area. Extremities: No cyanosis clubbing or edema. No calf tenderness or assymetry Spine/Back. Non tender to palpation. No CVA tenderness Skin: Good turgor without rashes. Neurologic exam: Cranial nerves two through 12 are intact. Motor and sensation are intact and symmetrical throughout. Medical Decision & Procedures ER Provider Diagnostic Interpretation: Radiology results as stated below per my review and radiologist interpretation: SINGLE VIEW CHEST CLINICAL HISTORY: Sepsis. FINDINGS: An AP, portable, upright chest radiograph is compared to study dated 12/21/2017 and correlated with chest CT dated 02/11/2018. The examination is degraded by portable technique and apical lordotic positioning. The heart is enlarged. The pulmonary vasculature is noncongested. Chronic interstitial thickening similar to previous. No airspace consolidation or pleural effusion is identified. No pneumothorax is seen. The skeletal structures are osteopenic. There is a healed left-sided rib fracture. 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 IMPRESSION: 1. Cardiomegaly with no acute cardiopulmonary abnormality. 2. 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 Electronically signed by: Humberto Crane M.D. 03/30/2018 11:20 PM Dictated Date/Time: 03/30/2018 11:18 PM Laboratory Results 03/31/18 00:08 Red Blood Count 3.39, Mean Corpuscular Volume 94.1, Mean Corpuscular Hemoglobin 32.4, Mean Corpuscular Hemoglobin Concent 34.5, Mean Platelet Volume 8.8, Neutrophils (%) (Auto) 81.0, Lymphocytes (%) (Auto) 9.6, Monocytes (%) (Auto) 8.8, Eosinophils (%) (Auto) 0.3, Basophils (%) (Auto) 0.1, Neutrophils # (Auto) 10.84, Lymphocytes # (Auto) 1.29, Monocytes # (Auto) 1.18, Eosinophils # (Auto) 0.04, Basophils # (Auto) 0.02 03/31/18 00:08 Test 03/30/18 23:45 03/31/18 00:08 03/31/18 00:24 Urine Color YELLOW Urine Appearance CLEAR (CLEAR) Urine pH 5.5 (4.5-7.5) Urine Specific [place] 1.022 (1.000-1.030) Urine Protein 1+ (NEG) Urine Glucose (UA) NEG (NEG) Urine Ketones NEG (NEG) Urine Occult Blood 2+ (NEG) Urine Nitrite NEG (NEG) Urine Bilirubin NEG (NEG) Urine Urobilinogen NEG (NEG) Urine Leukocyte Esterase SMALL (NEG) Urine WBC (Auto) >30 /hpf (0-5) Urine RBC (Auto) 10-30 /hpf (0-4) Urine Hyaline Casts (Auto) 10-30 /lpf (0-5) Urine Epithelial Cells (Auto) 20-30 /lpf (0-5) Urine Bacteria (Auto) NEG (NEG) White Blood Count 13.40 K/uL (4.8-10.8) Red Blood Count 3.39 M/uL (4.7-6.1) Hemoglobin 11.0 g/dL (14.0-18.0) Hematocrit 31.9 % (42-52) Mean Corpuscular Volume 94.1 fL (80-100) Mean Corpuscular Hemoglobin 32.4 pg (25-34) Mean Corpuscular Hemoglobin Concent 34.5 g/dl (32-36) Platelet Count 267 K/uL (130-400) Mean Platelet Volume 8.8 fL (7.4-10.4) Neutrophils (%) (Auto) 81.0 % Lymphocytes (%) (Auto) 9.6 % Monocytes (%) (Auto) 8.8 % Eosinophils (%) (Auto) 0.3 % Basophils (%) (Auto) 0.1 % Neutrophils # (Auto) 10.84 K/uL (1.4-6.5) Lymphocytes # (Auto) 1.29 K/uL (1.2-3.4) Monocytes # (Auto) 1.18 K/uL (0.11-0.59) Eosinophils # (Auto) 0.04 K/uL (0-0.5) Basophils # (Auto) 0.02 K/uL (0-0.2) RDW Standard Deviation 50.7 fL (36.4-46.3) RDW Coefficient of Variation 14.9 % (11.5-14.5) Immature Granulocyte % (Auto) 0.2 % Immature Granulocyte # (Auto) 0.03 K/uL (0.00-0.02) Red Blood Cell Morphology Unremarkable Prothrombin Time 13.0 SECONDS (9.0-12.0) Prothromb Time International Ratio 1.2 (0.9-1.1) Activated Partial Thromboplast Time 33.0 SECONDS (21.0-31.0) Partial Thromboplastin Ratio 1.3 Anion Gap 7.0 mmol/L (3-11) Est Creatinine Clear Calc Drug Dose 94.0 ml/min Estimated GFR () 113.4 Estimated GFR (Non- 97.9 BUN/Creatinine Ratio 28.3 (10-20) Calcium Level 8.2 mg/dl (8.5-10.1) Total Bilirubin 0.6 mg/dl (0.2-1) Aspartate Amino Transf (AST/SGOT) 46 U/L (15-37) Alanine Aminotransferase (ALT/SGPT) 26 U/L (12-78) Alkaline Phosphatase 270 U/L (45-117) Total Protein 6.1 gm/dl (6.4-8.2) Albumin 2.7 gm/dl (3.4-5.0) Globulin 3.4 gm/dl (2.5-4.0) Albumin/Globulin Ratio 0.8 (0.9-2) Bedside Lactic Acid Venous 0.52 mmol/L (0.90-1.70) Laboratory studies as stated above per my review. Medications Administered Medications (Trade) Dose Ordered Sig/Mandy Route Start Time Stop Time Status Last Admin Dose Admin Sodium Chloride 1,000 ml @ 999 mls/hr Q1H1M STAT IV 03/30/18 22:53 03/30/18 23:53 DC 03/31/18 00:27 999 MLS/HR Levofloxacin (Levaquin / D5W) 750 mg NOW STAT IV 03/31/18 00:51 03/31/18 00:53 DC 03/31/18 02:29 750 MG ECG Per My Interpretation Indication: weakness Rate (beats per minute): 90 Rhythm: normal sinus Findings: no acute ischemic change, no ectopy Comparison ECG Date: no prior available ED Course 225: Past medical records reviewed. The patient was evaluated in room A2, and a complete history and physical examination were performed. 2253: Ordered Sodium Chloride 1,000 ml @ 999 mls/hr IV 0050: I reassessed the patient at this time. He is feeling better and resting comfortably. I discussed the results and treatment plan with the patient. I answered all pertaining questions that he had. He expressed understanding and verbalized agreement. The patient will be further evaluated. 0051: Ordered Levofloxacin 750 mg IV 0055: Dr. Taylor, [facility] hospitalist. He was informed of the patient's case. The patient will be evaluated by the [facility] for further management. Medical Decision Differentials include, but are not limited to: UTI, sepsis, PNA, cancer complication, and electrolyte or metabolic abnormality. This patient comes in as described above he has metastatic prostate cancer and had a fever and chills at home as well as urinary symptoms. He looks well at present. He does have some mild suprapubic tenderness. He is nontoxic appearing. IV access established and he was hydrated with an IVnormal saline bolus. He has an elevated white count. Chest x-ray shows no evidence of pneumonia. Urinalysis does suggest UTI. He has no significant electrolyte or metabolic abnormalities. He was given IV Levaquin to cover the urine as well as prostate. I have reviewed his records he does have history of kidney stones as well as bladder stones I also ordered a CAT scan to rule out any obstructive uropathy. I do think he needs to be admitted/observed. Blood cultures been obtained. I have consulted Dr. Staton to see the patient in the ER for these measures. Family is in agreement with the plan. Medication Reconcilliation Current Medication List: was personally reviewed by me Blood Pressure Screening Patient's blood pressure: Normal blood pressure Consults Time Called: 54 Consulting Physician[facility] MIGUEL Martines hospitalist. He was informed of the patient's case. The patient will be evaluated by the [facility] for further management. Impression Primary Impression: UTI (urinary tract infection) Additional Impressions: Sepsis Prostate cancer Prostate cancer metastatic to multiple sites Scribe Attestation The scribe's documentation has been prepared under my direction and personally reviewed by me in its entirety. I confirm that the note above accurately reflects all work, treatment, procedures, and medical decision making performed by me. Departure Information Dispostion Being Evaluated By Hospitalist Referrals RV. Viera MD (PCP) Patient Instructions My [facility] Health Problem Qualifiers
--- NOTE | 2018-03-30 23:21 | DIAGNOSTIC IMAGING REPORT ---
SINGLE VIEW CHEST CLINICAL HISTORY: Sepsis. FINDINGS: An AP, portable, upright chest radiograph is compared to study dated 12/21/2017 and correlated with chest CT dated 02/11/2018. The examination is degraded by portable technique and apical lordotic positioning. The heart is enlarged. The pulmonary vasculature is noncongested. Chronic interstitial thickening similar to previous. No airspace consolidation or pleural effusion is identified. No pneumothorax is seen. The skeletal structures are osteopenic. There is a healed left-sided rib fracture. 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 IMPRESSION: 1. Cardiomegaly with no acute cardiopulmonary abnormality. 2. 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 Electronically signed by: Humberto Crane M.D. 03/30/2018 11:20 PM Dictated Date/Time: 03/30/2018 11:18 PM
[2018-03-31] VITALS (8 sets, daily range): BP systolic 114–147; BP diastolic 69–87; PULSE 73–87; TEMP 36.5–37.1; O2SAT 93–98; BMI 25.5
[2018-03-31 00:36] LABS: HEMATOCRIT 31.9 % (42-52); MEAN CELL VOLUME 94.1 fL (80-100); MEAN CORPUSCULAR HEMOGLOBIN 32.4 pg (25-34); MEAN CORPUSCULAR HGB CONC 34.5 g/dl (32-36); MEAN PLATELET VOLUME 8.8 fL (7.4-10.4); PLATELET COUNT 267 K/uL (130-400); RED CELL DISTRIBUTION WIDTH CV 14.9 % (11.5-14.5); RED CELL DISTRIBUTION WIDTH SD 50.7 fL (36.4-46.3)
[2018-03-31 00:47] LABS: INR 1.2 (0.9-1.1)
[2018-03-31] MEDS ORDERED: LEVAQUIN 750MG / 150ML D5W IV STA (00:51)
[2018-03-31 00:53] LABS: ALBUMIN 2.7 gm/dl (3.4-5.0); CALCIUM 8.2 mg/dl (8.5-10.1); CREATININE 0.65 mg/dl (0.60-1.40); POTASSIUM 3.5 mmol/L (3.5-5.1)
[2018-03-31 00:56] LABS: TOTAL PROTEIN 6.1 gm/dl (6.4-8.2)
[2018-03-31 01:05] LABS: BASO % 0.1 %; BASO ABS # 0.02 K/uL (0-0.2); EOS % 0.3 %; EOS ABS # 0.04 K/uL (0-0.5); IG# 0.03 K/uL (0.00-0.02); LYMPH % 9.6 %; LYMPH ABS # 1.29 K/uL (1.2-3.4); MONO % 8.8 %; MONO ABS # 1.18 K/uL (0.11-0.59); NEUT ABS # 10.84 K/uL (1.4-6.5)
[2018-03-31] MEDS ORDERED: ABIR500T PO (01:27)
--- NOTE | 2018-03-31 02:45 | History and Physical ---
History & Physical Date & Time of Service: March 31, 2018 at 02:45 Chief Complaint: FEVER Primary Care Physician: RV. Viera MD History of Present Illness Source: patient, clinic records, hospital records 72 yo M Spanish speaking Male with history of metastatic prostate cancer involving bone/liver/lung on chemotherapy (Zytiga), BPH with urinary obstruction s/p TURP, presenting with 2 days history of urinary urgency, frequency, worsening suprapubic pain, fever. He denies dysuria, hematuria. 1 day prior to arrival , he also reported Left lower back pain which has since resolved. History taking was limited due to language barrier, so much is taken from chart review, ED not in addition to conversation with patient. Past Medical/Surgical History Medical Problems: (1) BPH w urinary obs/LUTS (2) Chronic Sinusitis Nos (3) Fever (4) Helicobacter Pylori [H. 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 (8) Prostate cancer (9) Renal colic (10) Urinary retention (11) Urinary retention Family History FHx: cancer Social History Smoking Status: Never Smoker Smokeless Tobacco Use: No Alcohol Use: none Drug Use: none Marital Status: Housing status: lives with family Occupational Status: unemployed Immunizations History of Influenza Vaccine: Unknown History of Tetanus Vaccine?: Unknown History of Pneumococcal: Unknown History of Hepatitis B Vaccine: Unknown Allergies Coded Allergies: Ibuprofen (Verified Allergy, Mild, rash on neck, 03/10/18) Home Medications Scheduled Abiraterone Acetate (Zytiga), 500 MG PO BID Ciprofloxacin Hcl (Cipro), 1 TAB PO BID Prednisone (Prednisone), 5 MG PO BID Tamsulosin HCl (Tamsulosin HCl), 0.4 MG PO QAM Timolol Maleate (Timolol 0.5% Oph Soln 15 Ml), 1 DROP OPB BID Review of Systems Constitutional: + fever, No chills, No weakness Respiratory: No cough, No shortness of breath Cardiovascular: No chest pain, No edema, No palpitations Abdomen: + pain (suprapubic) Genitourinary - Male: + urinary frequency, + urinary urgency, No hematuria, No dysuria Hematologic / Lymphatic: No abnormal bleeding/bruising, No clotting problems Integumentary: No rash, No itch Physical Exam Vital Signs Date Time Temp Pulse Resp B/P (MAP) Pulse Ox O2 Delivery O2 Flow Rate FiO2 03/31/18 01:57 84 18 119/75 96 Room Air 03/31/18 00:16 87 03/30/18 23:25 Room Air 03/30/18 23:24 90 18 129/80 94 Room Air 03/30/18 22:16 36.9 105 20 125/83 97 Room Air GENERAL: alert, no distress, non-toxic EYE EXAM: normal conjunctiva, PERRL and EOM's grossly intact OROPHARYNX: no exudate, no erythema, lips, buccal mucosa, and tongue normal and mucous membranes are moist NECK: supple, no nuchal rigidity, no adenopathy, non-tender LUNGS: Clear to auscultation. Normal chest wall mechanics HEART: no murmurs, S1 normal and S2 normal ABDOMEN: Abdomen soft, Tenderness palpation suprapubic region normo-active bowel sounds, no masses, no rebound or guarding. BACK: Back is symmetrical on inspection and there is no deformity, no CVA tenderness SKIN: no rashes and no bruising UPPER EXTREMITIES: upper extremities are grossly normal. LOWER EXTREMITIES: No pitting edema. NEURO EXAM: Normal sensorium, cranial nerves II-XII grossly intact, normal speech, no gross weakness of arms, no gross weakness of legs. Diagnostics Laboratory Results Results Past 24 Hours Test 03/30/18 23:45 03/31/18 00:08 03/31/18 00:24 Range/Units Urine Color YELLOW Urine Appearance CLEAR CLEAR Urine pH 5.5 4.5-7.5 Urine Specific [place] 1.022 1.000-1.030 Urine Protein 1+ NEG Urine Glucose (UA) NEG NEG Urine Ketones NEG NEG Urine Occult Blood 2+ NEG Urine Nitrite NEG NEG Urine Bilirubin NEG NEG Urine Urobilinogen NEG NEG Urine Leukocyte Esterase SMALL NEG Urine WBC (Auto) >30 0-5 /hpf Urine RBC (Auto) 10-30 0-4 /hpf Urine Hyaline Casts (Auto) 10-30 0-5 /lpf Urine Epithelial Cells (Auto) 20-30 0-5 /lpf Urine Bacteria (Auto) NEG NEG White Blood Count 13.40 4.8-10.8 K/uL Red Blood Count 3.39 4.7-6.1 M/uL Hemoglobin 11.0 14.0-18.0 g/dL Hematocrit 31.9 42-52 % Mean Corpuscular Volume 94.1 80-100 fL Mean Corpuscular Hemoglobin 32.4 25-34 pg Mean Corpuscular Hemoglobin Concent 34.5 32-36 g/dl Platelet Count 267 130-400 K/uL Mean Platelet Volume 8.8 7.4-10.4 fL Neutrophils (%) (Auto) 81.0 % Lymphocytes (%) (Auto) 9.6 % Monocytes (%) (Auto) 8.8 % Eosinophils (%) (Auto) 0.3 % Basophils (%) (Auto) 0.1 % Neutrophils # (Auto) 10.84 1.4-6.5 K/uL Lymphocytes # (Auto) 1.29 1.2-3.4 K/uL Monocytes # (Auto) 1.18 0.11-0.59 K/uL Eosinophils # (Auto) 0.04 0-0.5 K/uL Basophils # (Auto) 0.02 0-0.2 K/uL RDW Standard Deviation 50.7 36.4-46.3 fL RDW Coefficient of Variation 14.9 11.5-14.5 % Immature Granulocyte % (Auto) 0.2 % Immature Granulocyte # (Auto) 0.03 0.00-0.02 K/uL Red Blood Cell Morphology Unremarkable Prothrombin Time 13.0 9.0-12.0 SECONDS Prothromb Time International Ratio 1.2 0.9-1.1 Activated Partial Thromboplast Time 33.0 21.0-31.0 SECONDS Partial Thromboplastin Ratio 1.3 Sodium Level 136 136-145 mmol/L Potassium Level 3.5 3.5-5.1 mmol/L Chloride Level 104 98-107 mmol/L Carbon Dioxide Level 25 21-32 mmol/L Anion Gap 7.0 3-11 mmol/L Blood Urea Nitrogen 18 7-18 mg/dl Creatinine 0.65 0.60-1.40 mg/dl Est Creatinine Clear Calc Drug Dose 94.0 ml/min Estimated GFR () 113.4 Estimated GFR (Non- 97.9 BUN/Creatinine Ratio 28.3 10-20 Random Glucose 135 70-99 mg/dl Calcium Level 8.2 8.5-10.1 mg/dl Total Bilirubin 0.6 0.2-1 mg/dl Aspartate Amino Transf (AST/SGOT) 46 15-37 U/L Alanine Aminotransferase (ALT/SGPT) 26 12-78 U/L Alkaline Phosphatase 270 45-117 U/L Total Protein 6.1 6.4-8.2 gm/dl Albumin 2.7 3.4-5.0 gm/dl Globulin 3.4 2.5-4.0 gm/dl Albumin/Globulin Ratio 0.8 0.9-2 Bedside Lactic Acid Venous 0.52 0.90-1.70 mmol/L Microbiology Results 03/31/18 Blood Culture, Received Pending 03/31/18 Blood Culture, Received Pending 03/30/18 Urine Culture, Received Pending Diagnostic Radiology SINGLE VIEW CHEST CLINICAL HISTORY: Sepsis. FINDINGS: An AP, portable, upright chest radiograph is compared to study dated 12/21/2017 and correlated with chest CT dated 02/11/2018. The examination is degraded by portable technique and apical lordotic positioning. The heart is enlarged. The pulmonary vasculature is noncongested. Chronic interstitial thickening similar to previous. No airspace consolidation or pleural effusion is identified. No pneumothorax is seen. The skeletal structures are osteopenic. There is a healed left-sided rib fracture. 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 IMPRESSION: 1. Cardiomegaly with no acute cardiopulmonary abnormality. 2. 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 Normal EKG, other (no ischemic change) Impression Assessment and Plan 72 yo M Spanish speaking Male with history of metastatic prostate cancer involving bone/liver/lung on chemotherapy (Zytiga), BPH with urinary obstruction s/p TURP, presenting with 2 days history of urinary urgency, frequency, worsening suprapubic pain, UA consistent with UTI Abnormal UA, LL back pain, fever - UA: suggestive of UTI vs Prostatitis, known history of BPH, prostate cancer bladder outlet obstruction - IV Levaquin daily - F/u CBC, urine, blood cx's - Urology consulted - BPH s/p TURP, Prostate cancer, possible contributor obstruction, Start Flomax Metastatic Prostate cancer - mets to bone liver lung - previously on Casodex, switched to Zytiga for chemotherapy - c/w Zytiga -c/w 5 mg Prednisone daily DVT PPX: SCD's Code status: FULL, will need to revisit due to language barrier Attending addendum: I have physically seen this patient, have supervised the medical residents activities, and agree with the H&P unless as otherwise noted. Assessment and Plan: Urinary retention/bladder outlet obstruction/complicated UTI/prostate cancer-- Levaquin 500 mg IV daily. Follow urine culture and sensitivity and blood cultures. Consult urology. Metastatic prostate cancer with metastases to bone, liver and lung-- Continue Zytiga. For now continue prednisone 5 mg daily, however, if progressive fatigue, place on stress dose steroids at that time. Advanced Directives Existing Advance Directive: No Existing Living Will: No Existing Power of District Representative: No Resuscitation Status VTE Prophylaxis Will order VTE Prophylaxis: Yes Social Service Consult None Apply Note Total Time: Critical Care 30 - 74 minutes Resident Tracking Resident Involvement: Resident Care Provided Care Provided: Adult Hospital Medicine
[2018-03-31] MEDS ORDERED: TAMSULOSIN HCL 0.4 MG CAP PO STA (03:54)
[2018-03-31 08:43] LABS: HEMATOCRIT 30.8 % (42-52); HEMOGLOBIN 10.3 g/dL (14.0-18.0); MEAN CELL VOLUME 95.1 fL (80-100); MEAN CORPUSCULAR HEMOGLOBIN 31.8 pg (25-34); MEAN CORPUSCULAR HGB CONC 33.4 g/dl (32-36); MEAN PLATELET VOLUME 8.8 fL (7.4-10.4); PLATELET COUNT 242 K/uL (130-400); RED CELL DISTRIBUTION WIDTH CV 15.1 % (11.5-14.5); RED CELL DISTRIBUTION WIDTH SD 52.1 fL (36.4-46.3); WHITE BLOOD COUNT 10.77 K/uL (4.8-10.8)
[2018-03-31 09:08] LABS: ALBUMIN 2.5 gm/dl (3.4-5.0); CALCIUM 8.3 mg/dl (8.5-10.1); CREATININE 0.61 mg/dl (0.60-1.40); POTASSIUM 3.8 mmol/L (3.5-5.1)
[2018-03-31 09:09] LABS: BASO % 0.1 %; BASO ABS # 0.01 K/uL (0-0.2); EOS % 0.5 %; EOS ABS # 0.05 K/uL (0-0.5); IG# 0.03 K/uL (0.00-0.02); LYMPH % 13.4 %; LYMPH ABS # 1.44 K/uL (1.2-3.4); MONO % 9.7 %; MONO ABS # 1.04 K/uL (0.11-0.59)
[2018-03-31 09:11] LABS: TOTAL PROTEIN 5.5 gm/dl (6.4-8.2)
--- NOTE | 2018-03-31 10:48 | DIAGNOSTIC IMAGING REPORT ---
CT OF THE ABDOMEN AND PELVIS WITHOUT CONTRAST, STONE PROTOCOL CLINICAL HISTORY: Evaluate for obstructive uropathy. Prostate cancer. COMPARISON STUDY: CT of the abdomen and pelvis February 11, 2018. TECHNIQUE: Helical axial images of the abdomen and pelvis were obtained without IV or oral contrast according to renal stone protocol. A dose lowering technique was utilized adhering to the principles of ALARA. FINDINGS: Innumerable hepatic metastases are again noted. Several these have increased in size since exam of February 11, 2018. Index segment 5 lesion measures 4.4 cm. It previously 3.2 cm. Several lesions have not significantly changed. Overall, hepatic metastatic disease has likely increased. Water attenuation bilateral renal lesions were shown to reflect cysts on prior contrast enhanced exam. There is no hydronephrosis. The spleen, adrenal glands and pancreas are unremarkable. There is no evidence for a bowel obstruction. The appendix is normal. The prostate is enlarged and heterogeneous. This is unchanged. Bladder wall thickening is noted. This is similar to previous exam. No renal, ureteral or bladder calculi are present. Innumerable sclerotic metastases are similar to exam of February 11, 2018. Note is made of asymmetric enlargement of the right iliacus muscle with a small amount of recent low-attenuation fluid. This is new since exam of February 11, 2018. There is also slight infiltration adjacent to the right psoas muscle. No enlarged abdominal or pelvic lymph nodes are present. IMPRESSION: 1. No urinary calculi or hydronephrosis. Moderate bladder wall thickening which is similar to previous exam. This could be correlated with urinalysis. 2. Enlarged heterogeneous prostate gland. 3. Interval development of asymmetric enlargement of the right iliacus muscle with small amount of adjacent fluid. This may reflect an intramuscular hematoma however no areas of significant increased attenuation are present. Given adjacent osseous metastasis, extension of tumor could appear similar. An infectious process is within the differential but considered less likely. Discussed with Dr. Taylor at time of dictation. 4. Innumerable hepatic metastases with suspected progression since CT of February 11, 2018. 5. Innumerable sclerotic skeletal metastases, similar to previous exam. Electronically signed by: Galen Garcia M.D. 03/31/2018 10:47 AM Dictated Date/Time: 03/31/2018 6:31 AM
[2018-03-31] MEDS ORDERED: TIMOLOL MALEATE 0.5% OP SOLN 5 ML BTL OPB ONE (12:15)
[2018-03-31] MEDS ORDERED: SENNA 8.6 MG TAB PO ONE (15:00)
--- NOTE | 2018-03-31 15:11 | Family Medicine Progress Note ---
Progress Note Date of Service March 31, 2018. Subjective Pt evaluation today including: conversation w/ patient, physical exam, chart review, lab review Pain: mild suprapubic discomfort PO Intake: tolerating Voiding: no voiding problems This AM pt reported suprapubic mild discomfort. Also reported weakness and not being able to sleep much last night. Improved urinary frequency went only 2 times since yester Constitutional: + weakness (didn't sleep well last night), No fever Respiratory: No shortness of breath Cardiovascular: No chest pain Abdomen: + pain (suprapubic discomfort), + constipation, No nausea, No vomiting Male : + urinary frequency (improving), No dysuria Medications Current Inpatient Medications Medications (Trade) Dose Ordered Sig/Mandy Route Start Time Stop Time Status Last Admin Dose Admin Tamsulosin HCl (Flomax Cap) 0.4 mg QAM PO 04/01/18 08:00 05/01/18 07:59 Prednisone (PredniSONE TAB) 5 mg BID PO 03/31/18 20:00 04/30/18 19:59 Timolol Maleate (Timoptic 0.5% Oph Soln) 1 drops BID OPB 03/31/18 20:00 04/30/18 19:59 Ciprofloxacin/ Dextrose 400 mg/ Prmx 200 ml @ 100 mls/hr Q12@00,12 IV 04/01/18 00:00 04/11/18 00:00 Senna (Senokot Tab) 17.2 mg QAM PO 04/01/18 08:00 05/01/18 07:59 Objective Vital Signs Date Time Temp Pulse Resp B/P (MAP) Pulse Ox O2 Delivery O2 Flow Rate FiO2 03/31/18 15:04 37.1 87 22 130/87 (101) 96 Room Air 03/31/18 11:01 36.5 73 18 134/75 (94) 96 Room Air 03/31/18 08:00 98 Room Air 03/31/18 07:25 36.6 76 18 114/75 (88) 98 Room Air 03/31/18 04:48 36.7 85 18 147/74 98 Room Air 03/31/18 03:58 36.7 83 16 132/77 93 Room Air 03/31/18 01:57 84 18 119/75 96 Room Air 03/31/18 00:16 87 03/30/18 23:25 Room Air 03/30/18 23:24 90 18 129/80 94 Room Air 03/30/18 22:16 36.9 105 20 125/83 97 Room Air Physical Exam General Appearance: no apparent distress Eyes: normal inspection Neck: supple Respiratory/Chest: lungs clear, normal breath sounds Cardiovascular: regular rate, rhythm, no murmur Abdomen: normal bowel sounds, soft, + tenderness (suprapubic - mild) Extremities: non-tender, no pedal edema Skin: warm/dry Laboratory Results 03/31/18 08:15 Red Blood Count 3.24, Mean Corpuscular Volume 95.1, Mean Corpuscular Hemoglobin 31.8, Mean Corpuscular Hemoglobin Concent 33.4, Mean Platelet Volume 8.8, Neutrophils (%) (Auto) 76.0, Lymphocytes (%) (Auto) 13.4, Monocytes (%) (Auto) 9.7, Eosinophils (%) (Auto) 0.5, Basophils (%) (Auto) 0.1, Neutrophils # (Auto) 8.20, Lymphocytes # (Auto) 1.44, Monocytes # (Auto) 1.04, Eosinophils # (Auto) 0.05, Basophils # (Auto) 0.01 03/31/18 08:15 Test 03/30/18 23:45 03/31/18 00:08 03/31/18 00:24 03/31/18 08:15 Urine Color YELLOW Urine Appearance CLEAR (CLEAR) Urine pH 5.5 (4.5-7.5) Urine Specific [place] 1.022 (1.000-1.030) Urine Protein 1+ (NEG) Urine Glucose (UA) NEG (NEG) Urine Ketones NEG (NEG) Urine Occult Blood 2+ (NEG) Urine Nitrite NEG (NEG) Urine Bilirubin NEG (NEG) Urine Urobilinogen NEG (NEG) Urine Leukocyte Esterase SMALL (NEG) Urine WBC (Auto) >30 /hpf (0-5) Urine RBC (Auto) 10-30 /hpf (0-4) Urine Hyaline Casts (Auto) 10-30 /lpf (0-5) Urine Epithelial Cells (Auto) 20-30 /lpf (0-5) Urine Bacteria (Auto) NEG (NEG) Red Blood Cell Morphology Unremarkable Prothrombin Time 13.0 SECONDS (9.0-12.0) Prothromb Time International Ratio 1.2 (0.9-1.1) Activated Partial Thromboplast Time 33.0 SECONDS (21.0-31.0) Partial Thromboplastin Ratio 1.3 Bedside Lactic Acid Venous 0.52 mmol/L (0.90-1.70) White Blood Count 10.77 K/uL (4.8-10.8) Red Blood Count 3.24 M/uL (4.7-6.1) Hemoglobin 10.3 g/dL (14.0-18.0) Hematocrit 30.8 % (42-52) Mean Corpuscular Volume 95.1 fL (80-100) Mean Corpuscular Hemoglobin 31.8 pg (25-34) Mean Corpuscular Hemoglobin Concent 33.4 g/dl (32-36) Platelet Count 242 K/uL (130-400) Mean Platelet Volume 8.8 fL (7.4-10.4) Neutrophils (%) (Auto) 76.0 % Lymphocytes (%) (Auto) 13.4 % Monocytes (%) (Auto) 9.7 % Eosinophils (%) (Auto) 0.5 % Basophils (%) (Auto) 0.1 % Neutrophils # (Auto) 8.20 K/uL (1.4-6.5) Lymphocytes # (Auto) 1.44 K/uL (1.2-3.4) Monocytes # (Auto) 1.04 K/uL (0.11-0.59) Eosinophils # (Auto) 0.05 K/uL (0-0.5) Basophils # (Auto) 0.01 K/uL (0-0.2) RDW Standard Deviation 52.1 fL (36.4-46.3) RDW Coefficient of Variation 15.1 % (11.5-14.5) Immature Granulocyte % (Auto) 0.3 % Immature Granulocyte # (Auto) 0.03 K/uL (0.00-0.02) Anion Gap 5.0 mmol/L (3-11) Est Creatinine Clear Calc Drug Dose 100.2 ml/min Estimated GFR () 116.5 Estimated GFR (Non- 100.5 BUN/Creatinine Ratio 25.1 (10-20) Calcium Level 8.3 mg/dl (8.5-10.1) Total Bilirubin 0.6 mg/dl (0.2-1) Aspartate Amino Transf (AST/SGOT) 32 U/L (15-37) Alanine Aminotransferase (ALT/SGPT) 21 U/L (12-78) Alkaline Phosphatase 231 U/L (45-117) Total Protein 5.5 gm/dl (6.4-8.2) Albumin 2.5 gm/dl (3.4-5.0) Globulin 3.0 gm/dl (2.5-4.0) Albumin/Globulin Ratio 0.8 (0.9-2) Assessment and Plan 72 yoM Togolese speaking male with history of metastatic prostate cancer involving bone/liver/lung on chemotherapy (Zytiga), BPH with urinary obstruction s/p TURP who presented with 2 days of urinary urgency, frequency, and suprapubic pain. NOW with improving urinary frequency but consistent suprapubic pain. UA was concerning for UTI but UCx pending. Started on empiric antibiotic coverage Levofloxacin transitioned to Cipro for improved urinary tract coverage. Abnormal UA - urinary frequency (improved), suprapubic TTP - UA: suggestive of UTI vs Prostatitis - history of BPH, prostate cancer bladder outlet obstruction - Afebrile with improved WBC 13.4 to 10.7 this AM - UCx pending - BCx pending - Received IV Levaquin x 1 - Transitioned to Cipro 400mg BID for improved urinary coverage - Will follow CBC, urine and blood cultures - Urology consulted given extensive history - Started on Flomax 0.4mg QAM for concern of obstruction Metastatic Prostate cancer - mets to bone, liver, and lung - previously on Casodex, switched to Zytiga for chemotherapy - continue Zytiga (pt needs to bring medication as not on formulary) - Continue Prednisone 5mg BID Glaucoma - Timolol 1 drop BID Chronic Constipation - Continue Senna 17.2mg PO daily DVT PPX: SCD's Code status: FULL, will need to revisit due to language barrier Dispo: pending cultures and clinical improvement Resident Physician Supervision Note: I interviewed and examined the patient. Discussed with Dr. Jc and agree with findings and plan as documented in the note. Any exceptions or clarifications are listed here: None Documented By: Damien Zamora feeling better no new complaints vitals noted nad breathing unlabored no pallor or icterus complicated UTI - abx, improving, otherwise as above Resident Involvement: Resident Care Provided Care Provided: Adult [facility] Medicine
--- NOTE | 2018-03-31 17:18 | Urology Consultation ---
History General Date of Service: March 31, 2018. Chief Complaint: Possible UTI, metastatic prostate cancer Primary Care Physician: RV. Viera MD Pt seen a urologist before?: Yes If yes, why?: Dr. Hudson for the above History of Present Illness 72-year-old unfortunate [place]er male, well-known to our service, [place]- speaking with limited [place] who is been admitted early this morning for suspected UTI. His history is significant for diffusely metastatic Merigold 4+3 prostate cancer for which he is on multiple therapies including a history of chemotherapy, Zytiga and androgen deprivation. He is status post TURP for obstructive urinary symptoms in November [address] Hudson with good results. Patient notes a temperature at home and worsening voiding over the days prior to admission for which he presented. His leukocytosis on admission is noted to have been improved, no renal failure being present. Patient's PSA has recently worsened and tay from 400 to 600 over the month of February. Patient is followed by the oncology service as well as ourselves. His outpatient and inpatient charts are reviewed. Urology consultation is sought out to assist with his inpatient care. Patient reports that he currently feels improved compared to admission but continues to have spikes temperatures. He is reassured that in cases of UTI and/or prostatitis it may take some days for fevers to resolve even on appropriate antibiotic therapy. He reports that his voiding is improved since his admission. Postvoid residual today is good at 86 cc. Patient has had a CT scan performed on admission images personally reviewed demonstrating diffuse metastatic disease including the liver and bony structures and a thickened bladder which is relatively decompressed. HPI - Prostate Cancer Hormone treatment: Ongoing Imaging Imaging: CT (Images personally reviewed) Laboratory Last 24 Hours Test 03/30/18 23:45 03/31/18 00:08 03/31/18 00:24 03/31/18 08:15 Urine Color YELLOW Urine Appearance CLEAR Urine pH 5.5 Urine Specific [place] 1.022 Urine Protein 1+ Urine Glucose (UA) NEG Urine Ketones NEG Urine Occult Blood 2+ Urine Nitrite NEG Urine Bilirubin NEG Urine Urobilinogen NEG Urine Leukocyte Esterase SMALL Urine WBC (Auto) >30 /hpf Urine RBC (Auto) 10-30 /hpf Urine Hyaline Casts (Auto) 10-30 /lpf Urine Epithelial Cells (Auto) 20-30 /lpf Urine Bacteria (Auto) NEG White Blood Count 13.40 K/uL 10.77 K/uL Red Blood Count 3.39 M/uL 3.24 M/uL Hemoglobin 11.0 g/dL 10.3 g/dL Hematocrit 31.9 % 30.8 % Mean Corpuscular Volume 94.1 fL 95.1 fL Mean Corpuscular Hemoglobin 32.4 pg 31.8 pg Mean Corpuscular Hemoglobin Concent 34.5 g/dl 33.4 g/dl Platelet Count 267 K/uL 242 K/uL Mean Platelet Volume 8.8 fL 8.8 fL Neutrophils (%) (Auto) 81.0 % 76.0 % Lymphocytes (%) (Auto) 9.6 % 13.4 % Monocytes (%) (Auto) 8.8 % 9.7 % Eosinophils (%) (Auto) 0.3 % 0.5 % Basophils (%) (Auto) 0.1 % 0.1 % Neutrophils # (Auto) 10.84 K/uL 8.20 K/uL Lymphocytes # (Auto) 1.29 K/uL 1.44 K/uL Monocytes # (Auto) 1.18 K/uL 1.04 K/uL Eosinophils # (Auto) 0.04 K/uL 0.05 K/uL Basophils # (Auto) 0.02 K/uL 0.01 K/uL RDW Standard Deviation 50.7 fL 52.1 fL RDW Coefficient of Variation 14.9 % 15.1 % Immature Granulocyte % (Auto) 0.2 % 0.3 % Immature Granulocyte # (Auto) 0.03 K/uL 0.03 K/uL Red Blood Cell Morphology Unremarkable Prothrombin Time 13.0 SECONDS Prothromb Time International Ratio 1.2 Activated Partial Thromboplast Time 33.0 SECONDS Partial Thromboplastin Ratio 1.3 Sodium Level 136 mmol/L 138 mmol/L Potassium Level 3.5 mmol/L 3.8 mmol/L Chloride Level 104 mmol/L 105 mmol/L Carbon Dioxide Level 25 mmol/L 27 mmol/L Anion Gap 7.0 mmol/L 5.0 mmol/L Blood Urea Nitrogen 18 mg/dl 15 mg/dl Creatinine 0.65 mg/dl 0.61 mg/dl Est Creatinine Clear Calc Drug Dose 94.0 ml/min 100.2 ml/min Estimated GFR () 113.4 116.5 Estimated GFR (Non- 97.9 100.5 BUN/Creatinine Ratio 28.3 25.1 Random Glucose 135 mg/dl 104 mg/dl Calcium Level 8.2 mg/dl 8.3 mg/dl Total Bilirubin 0.6 mg/dl 0.6 mg/dl Aspartate Amino Transf (AST/SGOT) 46 U/L 32 U/L Alanine Aminotransferase (ALT/SGPT) 26 U/L 21 U/L Alkaline Phosphatase 270 U/L 231 U/L Total Protein 6.1 gm/dl 5.5 gm/dl Albumin 2.7 gm/dl 2.5 gm/dl Globulin 3.4 gm/dl 3.0 gm/dl Albumin/Globulin Ratio 0.8 0.8 Bedside Lactic Acid Venous 0.52 mmol/L Problem List Medical Problems: (1) Metastatic malignant neoplasm to prostate Status: Acute (2) Metastatic neoplasm Status: Acute (3) Prostate cancer metastatic to multiple sites Status: Acute (4) Sepsis Status: Acute (5) Urinary retention Status: Acute (6) UTI (urinary tract infection) Status: Acute Past History cancer - colon, cancer - prostate, GERD, glaucoma, high cholesterol, hypertension, urinary tract infection, other (Constipation) Past Surgical History: other (TURP) Family History FHx: cancer Liver disease Social History Hx Tobacco Use In Past Year?: No Smoking: non-smoker Alcohol: no current use Marital status: Housing status: lives with family Occupation status: unemployed Allergies Coded Allergies: Ibuprofen (Verified Allergy, Mild, rash on neck, 03/10/18) Medications Home Medications: Home Meds and Scripts Medications Dose Route/Sig Max Daily Dose Days Date Category Dose Instructions Zytiga (Abiraterone Acetate) 500 Mg Tab 500 Mg PO BID 03/31/18 Reported PT TO BEGIN THIS MED ON 04/04/18 PER FAMILY. Prednisone 5 Mg Tab 5 Mg PO BID 12/21/17 Reported Timolol 0.5% Oph Soln 15 Ml (Timolol Maleate) 15 Ml Soln 1 Drop OPB BID 12/07/17 Reported Inpatient Medications: Current Inpatient Medications Medications (Trade) Dose Ordered Sig/Mandy Route Start Time Stop Time Status Last Admin Dose Admin Tamsulosin HCl (Flomax Cap) 0.4 mg QAM PO 04/01/18 08:00 05/01/18 07:59 Prednisone (PredniSONE TAB) 5 mg BID PO 03/31/18 20:00 04/30/18 19:59 Timolol Maleate (Timoptic 0.5% Oph Soln) 1 drops BID OPB 03/31/18 20:00 04/30/18 19:59 Ciprofloxacin/ Dextrose 400 mg/ Prmx 200 ml @ 100 mls/hr Q12@00,12 IV 04/01/18 00:00 04/11/18 00:00 Senna (Senokot Tab) 17.2 mg QAM PO 04/01/18 08:00 05/01/18 07:59 Review of Systems Review of Systems Constitutional: + fever, + chills Eyes: No double vision, No eye pain Neurological: No passing out, No numbness/tingling Endocrine: + tired/sluggish Gastrointestinal: No nausea, No vomiting Cardiovascular: No chest pain Respiratory: No shortness of breath Skin: No boils, No dry skin Musculoskeletal: + back pain Blood / Lymphatic: No swollen glands Ears / Nose / Throat: No hoarse voice Psychologic / Mental: No trouble remembering Male : + see HPI, + infections Physical Exam Vital Signs: Vital Signs Past 12 Hours Date Time Temp Pulse Resp B/P (MAP) Pulse Ox O2 Delivery O2 Flow Rate FiO2 03/31/18 16:00 98 Room Air 03/31/18 15:04 37.1 87 22 130/87 (101) 96 Room Air 03/31/18 11:01 36.5 73 18 134/75 (94) 96 Room Air 03/31/18 08:00 98 Room Air 03/31/18 07:25 36.6 76 18 114/75 (88) 98 Room Air Physical Exam: General Appearance: no apparent distress, + thin ENT: normal ENT inspection, hearing grossly normal Neck: supple, no adenopathy Respiratory/Chest: no respiratory distress, no accessory muscle use Cardiovascular: no JVD Gastrointestinal: Abdomen: normal abdomen Bladder: normal bladder Renal: normal renal Spleen: normal spleen Extremities: non-tender Neurologic/Psychiatric: alert Skin: + pallor Assessment & Plan Assessment & Plan A/P 72-year-old with widely metastatic prostate cancer, history of retention, likely urinary tract infection. Blood and urine cultures pending. Clinically patient is improving on current antibiotic regimen. Bladder seems to be emptying well. Should his PVR become elevated or difficulties with urination ensue Cuevas catheter can be placed temporarily for relief. Continue management of aggressive prostate cancer per oncology service. Would consider 2-4 weeks of antibiotics for possible prostatitis once cultures have become available. Patient is pending follow-up in our office on April [address] Hudson. Should be able to keep this appointment for follow-up from his inpatient visit. Thank you for allowing us to participate in this patient's care. Please contact our service with any questions or concerns.
[2018-03-31] MEDS: TIMOLOL MALEATE 0.5% OP SOLN 5 ML BTL OPB SCH (20:10)
[2018-03-31] MEDS ORDERED: FLM4 PO (20:52)
--- NOTE | 2018-03-31 20:57 | Discharge Instructions ---
Discharge Instructions Date of Service March 31, 2018. Admission Reason for Admission: Prostate Cancer, Uti Discharge Discharge Diagnosis / Problem: UTI Discharge Goals Goal(s): Decrease discomfort, Diagnostic testing, Therapeutic intervention Activity Recommendations Activity Limitations: resume your previous activity . Instructions / Follow-Up Instructions / Follow-Up Mr. Eran castaneda were admitted for increased urinary frequency and abdominal discomfort and found to have a urinary tract infection (bladder infection). We treated you with an antibiotic. Your pain and symptoms improved. You were stable for discharge today. Please follow the following instructions for further care. - Take Ciprofloxacin 500mg twice a day for another 8 days - Continue taking Flomax 0.4mg daily to help empty your bladder completely - Continue taking your other home medications as prescribed prior to your admission - Follow up with Dr. Dolly Lopez's office with YELITZA Kumar on at 1pm - Follow up with Urologist Dr. Hudson on 04/13/18 at 3:10pm - Return to the emergency department or see your doctor if you have worsening pain, fever, nausea, vomiting, abdominal pain or trouble urinating Current Hospital Diet Patient's current hospital diet: Regular Diet Discharge Diet Recommended Diet: Regular Diet Pending Studies Studies pending at discharge: no Medical Emergencies . Who to Call and When: Medical Emergencies: If at any time you feel your situation is an emergency, please call 911 immediately. . Non-Emergent Contact Non-Emergency issues call your: Primary Care Provider Call Non-Emergent contact if: temperature is above 101, your pain is worsening . . "Provider Documentation" section prepared by Alisson Jc. .
[2018-04-01] MEDS ORDERED: CIPROFLOXACIN 400MG / D5W IV SCH
[2018-04-01] MEDS ORDERED: LEVOFLOXACIN / D5W 750 MG in PREMIXED IN D5W 150 ML IV SCH (02:00)
[2018-04-01 04:09] VITALS: BP 117/72; PULSE 75; TEMP 36.6; O2SAT 94
[2018-04-01 05:55] LABS: BASO % 0.1 %; BASO ABS # 0.01 K/uL (0-0.2); EOS % 0.6 %; EOS ABS # 0.06 K/uL (0-0.5); HEMATOCRIT 31.9 % (42-52); HEMOGLOBIN 11.2 g/dL (14.0-18.0); IG# 0.02 K/uL (0.00-0.02); LYMPH % 12.8 %; LYMPH ABS # 1.19 K/uL (1.2-3.4); MEAN CELL VOLUME 93.8 fL (80-100); MEAN CORPUSCULAR HEMOGLOBIN 32.9 pg (25-34); MEAN CORPUSCULAR HGB CONC 35.1 g/dl (32-36); MONO % 9.2 %; MONO ABS # 0.86 K/uL (0.11-0.59); NEUT % 77.1 %; NEUT ABS # 7.18 K/uL (1.4-6.5); PLATELET COUNT 287 K/uL (130-400); RED CELL DISTRIBUTION WIDTH CV 14.6 % (11.5-14.5); RED CELL DISTRIBUTION WIDTH SD 50.2 fL (36.4-46.3); WHITE BLOOD COUNT 9.32 K/uL (4.8-10.8)
[2018-04-01 06:30] LABS: ALBUMIN 2.5 gm/dl (3.4-5.0); CALCIUM 8.4 mg/dl (8.5-10.1); CREATININE 0.71 mg/dl (0.60-1.40); POTASSIUM 3.8 mmol/L (3.5-5.1)
[2018-04-01 06:32] LABS: TOTAL PROTEIN 6.1 gm/dl (6.4-8.2)
[2018-04-01 06:43] VITALS: Ht 167.6 cm; Wt 68.4 kg
[2018-04-01 06:44] VITALS: BMI 24.3
[2018-04-01 07:33] VITALS: BP 103/68; PULSE 74; TEMP 36.6; O2SAT 94
[2018-04-01] MEDS: TIMOLOL MALEATE 0.5% OP SOLN 5 ML BTL OPB SCH (07:44)
[2018-04-01 08:00] VITALS: O2SAT 94
[2018-04-01] MEDS ORDERED: TAMSULOSIN HCL 0.4 MG CAP PO SCH (08:00)
[2018-04-01] MEDS ORDERED: SENNA 8.6 MG TAB PO SCH (08:00)
[2018-04-01 11:11] VITALS: BP 121/73; PULSE 70; TEMP 36.4; O2SAT 95
[2018-04-01] MEDS ORDERED: CIPROFLOXACIN 500 MG TAB PO SCH (12:00)
[2018-04-01] MEDS ORDERED: CIPR-255 PO (12:16)
[2018-04-01 13:00] VITALS: BP 121/73; PULSE 70; TEMP 36.4; O2SAT 95
--- NOTE | 2018-04-01 13:10 | Discharge Summary ---
Discharge Summary Date of Service April 01, 2018. Discharge Summary Admission Date: March 31, 2018 at 03:50 Discharge Date: April 01, 2018 Discharge Disposition: Home Principal Diagnosis: UTI Problems/Secondary Diagnoses: metastatic prostate cancer Procedures: CT OF THE ABDOMEN AND PELVIS WITHOUT CONTRAST, STONE PROTOCOL CLINICAL HISTORY: Evaluate for obstructive uropathy. Prostate cancer. COMPARISON STUDY: CT of the abdomen and pelvis February 11, 2018. TECHNIQUE: Helical axial images of the abdomen and pelvis were obtained without IV or oral contrast according to renal stone protocol. A dose lowering technique was utilized adhering to the principles of ALARA. FINDINGS: Innumerable hepatic metastases are again noted. Several these have increased in size since exam of February 11, 2018. Index segment 5 lesion measures 4.4 cm. It previously 3.2 cm. Several lesions have not significantly changed. Overall, hepatic metastatic disease has likely increased. Water attenuation bilateral renal lesions were shown to reflect cysts on prior contrast enhanced exam. There is no hydronephrosis. The spleen, adrenal glands and pancreas are unremarkable. There is no evidence for a bowel obstruction. The appendix is normal. The prostate is enlarged and heterogeneous. This is unchanged. Bladder wall thickening is noted. This is similar to previous exam. No renal, ureteral or bladder calculi are present. Innumerable sclerotic metastases are similar to exam of February 11, 2018. Note is made of asymmetric enlargement of the right iliacus muscle with a small amount of recent low-attenuation fluid. This is new since exam of February 11, 2018. There is also slight infiltration adjacent to the right psoas muscle. No enlarged abdominal or pelvic lymph nodes are present. IMPRESSION: 1. No urinary calculi or hydronephrosis. Moderate bladder wall thickening which is similar to previous exam. This could be correlated with urinalysis. 2. Enlarged heterogeneous prostate gland. 3. Interval development of asymmetric enlargement of the right iliacus muscle with small amount of adjacent fluid. This may reflect an intramuscular hematoma however no areas of significant increased attenuation are present. Given adjacent osseous metastasis, extension of tumor could appear similar. An infectious process is within the differential but considered less likely. Discussed with Dr. Taylor at time of dictation. 4. Innumerable hepatic metastases with suspected progression since CT of February 11, 2018. 5. Innumerable sclerotic skeletal metastases, similar to previous exam. SINGLE VIEW CHEST CLINICAL HISTORY: Sepsis. FINDINGS: An AP, portable, upright chest radiograph is compared to study dated 12/21/2017 and correlated with chest CT dated 02/11/2018. The examination is degraded by portable technique and apical lordotic positioning. The heart is enlarged. The pulmonary vasculature is noncongested. Chronic interstitial thickening similar to previous. No airspace consolidation or pleural effusion is identified. No pneumothorax is seen. The skeletal structures are osteopenic. There is a healed left-sided rib fracture. 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 IMPRESSION: 1. Cardiomegaly with no acute cardiopulmonary abnormality. 2. 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 Consultations: Urology Medication Reconciliation New Medications: Ciprofloxacin Hcl (Cipro) 500 Mg Tab 1 TAB PO BID for 8 Days, #16 TAB Tamsulosin HCl (Tamsulosin HCl) 0.4 Mg Cap 0.4 MG PO QAM for 30 Days, #30 CAP Continued Medications: Abiraterone Acetate (Zytiga) 500 Mg Tab 500 MG PO BID PT TO BEGIN THIS MED ON 04/04/18 PER FAMILY. Prednisone (Prednisone) 5 Mg Tab 5 MG PO BID, TAB Timolol Maleate (Timolol 0.5% Oph Soln 15 Ml) 15 Ml Soln 1 DROP OPB BID Discharge Exam Review of Systems: Constitutional: No fever Respiratory: No shortness of breath Cardiovascular: No chest pain Abdomen: No pain, No nausea, No vomiting Genitourinary - Male: No dysuria, No urinary frequency, No urinary incontinence Physical Exam: General Appearance: no apparent distress Eyes: normal inspection Neck: supple Respiratory/Chest: lungs clear, normal breath sounds Cardiovascular: regular rate, rhythm, no edema, no murmur Abdomen / GI: normal bowel sounds, non tender, soft Extremities: no calf tenderness, no pedal edema Neurologic/Psychiatric: alert, oriented x 3 Skin: warm/dry Hospital Course 72 yoM Mexican speaking male with history of metastatic prostate cancer involving bone/liver/lung on chemotherapy (Zytiga), BPH with urinary obstruction s/p TURP who presented with 2 days of urinary urgency, frequency, and suprapubic pain. P' urinary frequency and suprapubic pain improved prior to discharge. UA was concerning for UTI but UCx was negative. Started on empiric antibiotic coverage Levofloxacin transitioned to Cipro for improved urinary tract coverage. Dced with 8 more days of cipro to complete 10 day course. Abnormal UA - urinary frequency (improved), suprapubic TTP - UA: suggestive of UTI vs Prostatitis - history of BPH, prostate cancer bladder outlet obstruction - Afebrile with improved WBC 13.4 to 9.3 this AM - UCx pinpoint growth (negative) - BCx NGTD - Received IV Levaquin x 1 - Transitioned to Cipro for improved urinary coverage received 2 doses - discharged with cipro 500mg BID x 8 days to complete 10 day course - Urology consulted given extensive history - Started on Flomax 0.4mg QAM for concern of obstruction - dced with - Follow up with Dr. Braden as scheduled Metastatic Prostate cancer - mets to bone, liver, and lung - previously on Casodex, was switched to Zytiga for chemotherapy - Continued Zytiga (pt needs to bring medication as not on formulary) - Continued Prednisone 5mg BID Glaucoma - Continued home Timolol 1 drop BID Chronic Constipation - resolved BM x 1 - Continued home Senna 17.2mg PO daily DVT PPX: SCD's Code status: FULL Dispo: home Resident Physician Supervision Note: I interviewed and examined the patient. Discussed with Dr. Jc and agree with findings and plan as documented in the note. Any exceptions or clarifications are listed here: None Documented By: Damien Zamora feeling good ready to go home wants to go home vitals noted nad breathign unlabored no pallor or icterus complicated UTI / prostatitis / urinary retnetion -improving, stable for home as above Total Time Spent: Less than 30 minutes This includes examination of the patient, discharge planning, medication reconciliation, and communication with other providers. Discharge Instructions Please refer to the electronic Patient Visit Report (Discharge Instructions) for additional information. Additional Copies To RV. Viera MD
== END 2018-04-01 13:30 | disposition home or self-care (01) | DRG 728 ==
LOC: C.EDB 22:03 → C.4E 03-31 03:50 → ENRESERV 03-31 04:07
PROVIDERS: ADMIT Hospitalist; ATTEND Family Medicine
DX: N41.9 Inflammatory disease of prostate, unspecified (principal); N39.0 Urinary tract infection, site not specified; C79.51 Secondary malignant neoplasm of bone; C78.7 Secondary malignant neoplasm of liver and intrahepatic bile duct; C78.00 Secondary malignant neoplasm of unspecified lung; R33.8 Other retention of urine; C61 Malignant neoplasm of prostate; K59.09 Other constipation; I10 Essential (primary) hypertension; H40.9 Unspecified glaucoma; Z79.899 Other long term (current) drug therapy; Z88.6 Allergy status to analgesic agent

== ENCOUNTER 2018-04-19 06:38 | Emergency (ER) | payer OTHER ==
[~2018-04-19] VITALS: Ht 170.2 cm; Wt 72.1 kg
[~2018-04-19 06:38] MED LIST changes: +ABIR500T PO; -BICA50TA2 PO; +CIPR-255 PO; -DRGTP12 EXT; -DXM4 PO; +FLM4 PO; -ONDA8TAB12 PO
[2018-04-19 06:42] VITALS: TEMP 37.1; Ht 170.2 cm; Wt 72.1 kg
[2018-04-19] MEDS ORDERED: ONDANSETRON INJ 2 MG/ML 2 ML VIAL IV STA (06:57)
[2018-04-19] MEDS ORDERED: SODIUM CHLORIDE 0.9% 1000ML 1,000 ML IV STA (06:57)
[2018-04-19] MEDS ORDERED: HYDROmorphone INJ 1 MG/ML SYR IV STA (06:57)
[2018-04-19 07:18] LABS: HEMATOCRIT 35.3 % (42-52); HEMOGLOBIN 11.7 g/dL (14.0-18.0); MEAN CELL VOLUME 92.2 fL (80-100); MEAN CORPUSCULAR HEMOGLOBIN 30.5 pg (25-34); MEAN CORPUSCULAR HGB CONC 33.1 g/dl (32-36); MEAN PLATELET VOLUME 8.6 fL (7.4-10.4); PLATELET COUNT 236 K/uL (130-400); RED CELL DISTRIBUTION WIDTH CV 14.4 % (11.5-14.5); RED CELL DISTRIBUTION WIDTH SD 48.6 fL (36.4-46.3)
[2018-04-19] MEDS ORDERED: OMEP20CA9 PO (07:28)
[2018-04-19] MEDS ORDERED: BICA50TA2 PO (07:28)
[2018-04-19] MEDS ORDERED: TAMS0.4C38 PO (07:28)
[2018-04-19] MEDS ORDERED: BRIM0.2S OPB (07:28)
--- NOTE | 2018-04-19 07:35 | EMERGENCY ROOM VISIT NOTE ---
History Report prepared by Ana: Rosendo Botello Under the Supervision of: Dr. Erlinda Alcantar M.D. First contact with patient: 06:47 Chief Complaint: PAIN (GENERALIZED) Stated Complaint: VERY STRONG PAIN History of Present Illness This HPI is acquired via the patient's family member at bedside as the patient does not speak [place]ian. The patient is a 72 year old male who presents to the Emergency Room with complaints of pain in several areas of his right side that have been worsening over the past couple of days. The patient's family member at bedside notes that he is complaining of pain in the right shoulder, down his back, and in his right hip. The worst of the pain is in the right hip, which is inhibiting his ability to walk. He cannot walk on the right leg. The patient also complains of pain in his chest, which is worsened with deep inhalation. The patient is currently diagnosed with cancer and is being treated with oral chemotherapy. The family at bedside adds that the pain in the right hip is all new, and he has not experienced any falling episodes lately. He has not had any fevers. Source of History: family Onset: past couple of days Position: shoulder (right), leg (right hip) Timing: worsening Modifying Factors (Worsening): breathing (chest pain worsened with deep inhalation) Associated Symptoms: + chest pain, + back pain, No fevers Review of Systems See HPI for pertinent positives & negatives. A total of 10 systems reviewed and were otherwise negative. Past Medical & Surgical Medical Problems: (1) BPH w urinary obs/LUTS (2) Chronic Sinusitis Nos (3) Fever (4) Helicobacter Pylori [H. 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 (8) Prostate cancer (9) Urinary retention Family History FHx: cancer Social History Smoking Status: Never Smoker Drug Use: none Marital Status: Housing Status: lives with family Occupation Status: unemployed Current/Historical Medications Scheduled Abiraterone Acetate (Zytiga), 500 MG PO BID Bicalutamide (Casodex), 50 MG PO DAILY Brimonidine Tartrate-Timolol M (Combigan), 1 DROP OPB BID Omeprazole (Prilosec), 20 MG PO DAILY Prednisone (Prednisone), 5 MG PO BID Tamsulosin Hcl (Flomax), 0.4 MG PO DAILY Scheduled PRN Hydrocodone/Acetaminophen 5MG/325MG ([place] 5MG/325MG), 1 TABLET PO q4-6 PRN for Pain Allergies Coded Allergies: Ibuprofen (Verified Allergy, Mild, rash on neck, 04/19/18) Physical Exam Vital Signs Date Time Temp Pulse Resp B/P (MAP) Pulse Ox O2 Delivery O2 Flow Rate FiO2 04/19/18 09:59 67 18 123/79 94 Room Air 04/19/18 06:42 37.1 82 20 142/89 95 Room Air Physical Exam Vital signs reviewed. General: chronically ill-appearing older male, in mild discomfort. HEENT: No scleral icterus, PERRLA, neck supple. Atraumatic. Cardiovascular: Regular rate and rhythm, no extra sounds. Pulmonary: Clear to auscultation bilaterally, normal work of breathing. Abdomen: Soft, nontender, nondistended, positive bowel sounds. Musculoskeletal: Atraumatic, no peripheral edema. There is pain to the right scapula and trapezius muscle to palpation. Pain in the right shoulder with right straight leg raise. Neurologic: Patient awake alert and oriented x 3, full strength in all 4 extremities. Cranial nerves 2 through 12 grossly intact. Beninese speaking, exam obtained with park interpreter at the bedside. Skin: Warm, dry, no rash Medical Decision & Procedures ER Provider Diagnostic Interpretation: Radiology results as stated below per my review and radiologist interpretation R SHOULDER MIN 2 VIEWS ROUTINE, R SCAPULA, R HIP UNILATERAL 2 VIEWS CLINICAL HISTORY: R shoulder pain, mets bone dx. Right hip pain. COMPARISON STUDY: Chest CT 02/11/2018. Abdomen and pelvis CT 03/31/2008. FINDINGS: Right shoulder/scapula: There are few scattered subcentimeter sclerotic lesions within the clavicle and proximal humerus consistent with metastatic disease. These are not significantly changed. No fracture or dislocation within the right shoulder or right scapula. The right clavicle is intact. Right hip: No fracture dislocation within the right hip. Osteoblastic metastatic lesions are again noted within the pelvic bones and proximal right femur. No cortical destruction identified at this time. Mild osteoarthritis within the right hip. Dominant osteoblastic lesion is seen at the ischial tuberosity and measures 5.8 cm. IMPRESSION: 1. No fracture or dislocation within the right shoulder, right scapula, right hip. 2. A few scattered subcentimeter metastatic osteoblastic lesions are again noted. Electronically signed by: Gary Marroquin M.D. 04/19/2018 8:34 AM Dictated Date/Time: 04/19/2018 8:28 AM CERVICAL SPINE FIVE VIEWS CLINICAL HISTORY: Neck pain. Right upper extremity radiculopathy. FINDINGS: AP, lateral, bilateral oblique, and odontoid views of the cervical spine are obtained. No prior studies are available for comparison at the time of dictation. The skeletal structures are osteopenic. There is no radiographic evidence of fracture or malalignment involving the cervical spine. Vertebral body height and alignment are maintained. There is straightening of the cervical lordosis with mild reversal centered at C4-C5. The spinolaminar line is preserved. The odontoid process and lateral masses appear intact as seen on the open-mouth view. The atlantodental articulation appears maintained. There is moderate disc space narrowing and endplate sclerosis seen at C6-C7. A large posterior disc osteophyte complex at this level likely contributes to acquired compromise of the central canal. Only mild disc space narrowing is seen at the remaining cervical levels. Right-sided neural foraminal stenosis is suggested at C6-C7 on the oblique views. The prevertebral soft tissues are normal in appearance. The partially imaged apical lung parenchyma is grossly clear. IMPRESSION: 1. No acute bony abnormality is seen involving the cervical spine. 2. Osteopenia and spondylotic change as above, greatest at C6-C7. See discussion. Dictated: 04/19/2018 8:31 AM Transcribed: 04/19/2018 8:47 AM [email or web address] Electronically signed by: Humberto Crane M.D. 04/19/2018 8:55 AM Dictated Date/Time: 04/19/2018 8:31 AM LUMBAR SPINE 5 VIEWS HISTORY: R hip pain, radiculopathy, mets dx COMPARISON: Abdomen and pelvis CT 03/31/2018. FINDINGS: There is no fracture. No subluxation. Severe disc space narrowing at L5-S1. Mild facet degenerative changes seen within the lower lumbar spine. Scattered osteoblastic metastatic lesions are again noted. Dominant lesion within the L3 vertebral body measures 2.8 cm. There are also multiple metastatic lesions within the sacrum with the largest on the right measuring 4.7 cm. Minimal dextroscoliosis of the lumbar spine which could be positional. IMPRESSION: No fracture or subluxation within the lumbar spine. Scattered osteoblastic metastatic lesions are again noted. Electronically signed by: Gary Marroquin M.D. 04/19/2018 8:41 AM Dictated Date/Time: 04/19/2018 8:39 AM CHEST ONE VIEW PORTABLE HISTORY: Atypical chest pain, mets prostate CA COMPARISON: Chest 03/30/2018. FINDINGS: No pneumothorax. No pleural effusions. Mild elevation of the right hemidiaphragm. The heart is borderline enlarged. No focal lung consolidations to suggest pneumonia. Right medial lung base linear densities favor atelectasis. Scattered osteoblastic metastatic lesions are again noted. No acute fractures. Old, healed left lower rib fracture. IMPRESSION: 1. No acute process within the chest. 2. Mild elevation of the right hemidiaphragm with right basilar linear densities suggesting subsegmental atelectasis. 3. Osteoblastic metastatic disease is again noted. Electronically signed by: Gary Marroquin M.D. 04/19/2018 8:36 AM Dictated Date/Time: 04/19/2018 8:34 AM Laboratory Results 04/19/18 07:10 Red Blood Count 3.83, Mean Corpuscular Volume 92.2, Mean Corpuscular Hemoglobin 30.5, Mean Corpuscular Hemoglobin Concent 33.1, Mean Platelet Volume 8.6, Neutrophils (%) (Auto) 76.6, Lymphocytes (%) (Auto) 15.4, Monocytes (%) (Auto) 7.1, Eosinophils (%) (Auto) 0.4, Basophils (%) (Auto) 0.2, Neutrophils # (Auto) 8.13, Lymphocytes # (Auto) 1.63, Monocytes # (Auto) 0.75, Eosinophils # (Auto) 0.04, Basophils # (Auto) 0.02 04/19/18 07:10 Test 04/19/18 07:10 04/19/18 09:55 White Blood Count 10.60 K/uL (4.8-10.8) Red Blood Count 3.83 M/uL (4.7-6.1) Hemoglobin 11.7 g/dL (14.0-18.0) Hematocrit 35.3 % (42-52) Mean Corpuscular Volume 92.2 fL (80-100) Mean Corpuscular Hemoglobin 30.5 pg (25-34) Mean Corpuscular Hemoglobin Concent 33.1 g/dl (32-36) Platelet Count 236 K/uL (130-400) Mean Platelet Volume 8.6 fL (7.4-10.4) Neutrophils (%) (Auto) 76.6 % Lymphocytes (%) (Auto) 15.4 % Monocytes (%) (Auto) 7.1 % Eosinophils (%) (Auto) 0.4 % Basophils (%) (Auto) 0.2 % Neutrophils # (Auto) 8.13 K/uL (1.4-6.5) Lymphocytes # (Auto) 1.63 K/uL (1.2-3.4) Monocytes # (Auto) 0.75 K/uL (0.11-0.59) Eosinophils # (Auto) 0.04 K/uL (0-0.5) Basophils # (Auto) 0.02 K/uL (0-0.2) RDW Standard Deviation 48.6 fL (36.4-46.3) RDW Coefficient of Variation 14.4 % (11.5-14.5) Immature Granulocyte % (Auto) 0.3 % Immature Granulocyte # (Auto) 0.03 K/uL (0.00-0.02) Anion Gap 8.0 mmol/L (3-11) Est Creatinine Clear Calc Drug Dose 83.4 ml/min Estimated GFR () 106.4 Estimated GFR (Non- 91.8 BUN/Creatinine Ratio 16.9 (10-20) Calcium Level 8.7 mg/dl (8.5-10.1) Total Bilirubin 0.9 mg/dl (0.2-1) Direct Bilirubin 0.2 mg/dl (0-0.2) Aspartate Amino Transf (AST/SGOT) 73 U/L (15-37) Alanine Aminotransferase (ALT/SGPT) 53 U/L (12-78) Alkaline Phosphatase 420 U/L (45-117) Total Protein 6.8 gm/dl (6.4-8.2) Albumin 2.9 gm/dl (3.4-5.0) Urine Color YELLOW Urine Appearance CLEAR (CLEAR) Urine pH 5.5 (4.5-7.5) Urine Specific [place] 1.018 (1.000-1.030) Urine Protein TRACE (NEG) Urine Glucose (UA) NEG (NEG) Urine Ketones NEG (NEG) Urine Occult Blood TRACE (NEG) Urine Nitrite NEG (NEG) Urine Bilirubin NEG (NEG) Urine Urobilinogen NEG (NEG) Urine Leukocyte Esterase SMALL (NEG) Urine WBC (Auto) 10-30 /hpf (0-5) Urine RBC (Auto) 5-10 /hpf (0-4) Urine Hyaline Casts (Auto) 5-10 /lpf (0-5) Urine Epithelial Cells (Auto) 10-20 /lpf (0-5) Urine Bacteria (Auto) NEG (NEG) Laboratory results per my review. Medications Administered Medications (Trade) Dose Ordered Sig/Mandy Route Start Time Stop Time Status Last Admin Dose Admin Hydromorphone HCl (Dilaudid Inj) 1 mg NOW STAT IV 04/19/18 06:57 04/19/18 07:00 DC 04/19/18 07:31 1 MG Ondansetron HCl (Zofran Inj) 4 mg NOW STAT IV 04/19/18 06:57 04/19/18 07:00 DC 04/19/18 07:32 4 MG Sodium Chloride 1,000 ml @ 200 mls/hr Q5H STAT IV 04/19/18 06:57 04/19/18 11:13 DC 04/19/18 07:32 200 MLS/HR ED Course 0656: Past medical records reviewed. The patient was evaluated in room B3B. A complete history and physical examination was performed. 0657: Ordered Sodium Chloride 1000 mL @ 200 mL/hr IV, Zofran 4 mg IV, Dilaudid 1 mg IV. 1012: Upon reevaluation, the patient appeared to have improvement of his symptoms. I discussed findings with him and his family member. They verbalized agreement of the treatment plan. The patient was discharged home. Medical Decision Differential diagnosis: Etiologies such as fracture, dislocation, neurovascular compromise, compartment syndrome, soft tissue injury, as well as others were entertained. This patient was evaluated and appeared to be in significant discomfort. Physical examination reveals no acute abnormalities with the exception of tenderness to specified areas. Multiple x-rays were obtained as indicated above , no acute fractures are appreciated. Patient does have significant metastatic disease to the bones. Patient was given 1 mg of IV Dilaudid and 4 mg of IV Zofran and hydrated with normal saline solution. Laboratory work reveals a mild anemia. Urinalysis is concerning for infection but is contaminated and will be sent for culture. Patient was feeling much improved on my reevaluation. I suspect pain management is not issue at this time. Patient is not currently taking any medications to help control the pain. He was given a prescription for [place] and advised not to drive or to use Tylenol with this medication. Will follow up with his oncologist for further management. Patient will return to the emergency department for worsening of symptoms or any medical concerns. Medication Reconcilliation Current Medication List: was personally reviewed by me Blood Pressure Screening Patient's blood pressure: Elevated blood pressure Blood pressure disposition: Referred to PCP Impression Primary Impression: Neoplasm related pain (acute) (chronic) Additional Impression: Prostate cancer metastatic to bone Scribe Attestation The scribe's documentation has been prepared under my direction and personally reviewed by me in its entirety. I confirm that the note above accurately reflects all work, treatment, procedures, and medical decision making performed by me. Departure Information Dispostion Home / Self-Care Prescriptions Hydrocodone/Acetaminophen 5MG/325MG ([place] 5MG/325MG) Tab 1 TABLET PO q4-6 Y for Pain, #30 TAB Prov: Erlinda Alcantar M.D. 04/19/18 Referrals RV. Viera MD (PCP) Forms HOME CARE DOCUMENTATION FORM, IMPORTANT VISIT INFORMATION, WORK / SCHOOL INSTRUCTIONS Patient Instructions [facility] Additional Instructions Diagnosis: Acute on chronic pain, metastatic prostate cancer [place] 1 tablet every 4-6 hours as needed for pain. Do not drive or take Tylenol with this medication. Colace 100 mg twice daily as needed for stool softening. Drink plenty of water. Follow-up with your primary care physician or oncologist related to the pain management. Return to the emergency department for worsening of symptoms or any medical concerns. Problem Qualifiers
[2018-04-19 07:36] LABS: ALBUMIN 2.9 gm/dl (3.4-5.0); CALCIUM 8.7 mg/dl (8.5-10.1); CREATININE 0.76 mg/dl (0.60-1.40); POTASSIUM 3.6 mmol/L (3.5-5.1); TOTAL PROTEIN 6.8 gm/dl (6.4-8.2)
[2018-04-19 07:41] LABS: BASO % 0.2 %; BASO ABS # 0.02 K/uL (0-0.2); EOS % 0.4 %; EOS ABS # 0.04 K/uL (0-0.5); IG# 0.03 K/uL (0.00-0.02); LYMPH % 15.4 %; LYMPH ABS # 1.63 K/uL (1.2-3.4); MONO % 7.1 %; MONO ABS # 0.75 K/uL (0.11-0.59); NEUT % 76.6 %; NEUT ABS # 8.13 K/uL (1.4-6.5)
--- NOTE | 2018-04-19 08:35 | DIAGNOSTIC IMAGING REPORT ---
R SHOULDER MIN 2 VIEWS ROUTINE, R SCAPULA, R HIP UNILATERAL 2 VIEWS CLINICAL HISTORY: R shoulder pain, mets bone dx. Right hip pain. COMPARISON STUDY: Chest CT 02/11/2018. Abdomen and pelvis CT 03/31/2008. FINDINGS: Right shoulder/scapula: There are few scattered subcentimeter sclerotic lesions within the clavicle and proximal humerus consistent with metastatic disease. These are not significantly changed. No fracture or dislocation within the right shoulder or right scapula. The right clavicle is intact. Right hip: No fracture dislocation within the right hip. Osteoblastic metastatic lesions are again noted within the pelvic bones and proximal right femur. No cortical destruction identified at this time. Mild osteoarthritis within the right hip. Dominant osteoblastic lesion is seen at the ischial tuberosity and measures 5.8 cm. IMPRESSION: 1. No fracture or dislocation within the right shoulder, right scapula, right hip. 2. A few scattered subcentimeter metastatic osteoblastic lesions are again noted. Electronically signed by: Gary Marroquin M.D. 04/19/2018 8:34 AM Dictated Date/Time: 04/19/2018 8:28 AM
--- NOTE | 2018-04-19 08:37 | DIAGNOSTIC IMAGING REPORT ---
CHEST ONE VIEW PORTABLE HISTORY: Atypical chest pain, mets prostate CA COMPARISON: Chest 03/30/2018. FINDINGS: No pneumothorax. No pleural effusions. Mild elevation of the right hemidiaphragm. The heart is borderline enlarged. No focal lung consolidations to suggest pneumonia. Right medial lung base linear densities favor atelectasis. Scattered osteoblastic metastatic lesions are again noted. No acute fractures. Old, healed left lower rib fracture. IMPRESSION: 1. No acute process within the chest. 2. Mild elevation of the right hemidiaphragm with right basilar linear densities suggesting subsegmental atelectasis. 3. Osteoblastic metastatic disease is again noted. Electronically signed by: Gary Marroquin M.D. 04/19/2018 8:36 AM Dictated Date/Time: 04/19/2018 8:34 AM
--- NOTE | 2018-04-19 08:42 | DIAGNOSTIC IMAGING REPORT ---
LUMBAR SPINE 5 VIEWS HISTORY: R hip pain, radiculopathy, mets dx COMPARISON: Abdomen and pelvis CT 03/31/2018. FINDINGS: There is no fracture. No subluxation. Severe disc space narrowing at L5-S1. Mild facet degenerative changes seen within the lower lumbar spine. Scattered osteoblastic metastatic lesions are again noted. Dominant lesion within the L3 vertebral body measures 2.8 cm. There are also multiple metastatic lesions within the sacrum with the largest on the right measuring 4.7 cm. Minimal dextroscoliosis of the lumbar spine which could be positional. IMPRESSION: No fracture or subluxation within the lumbar spine. Scattered osteoblastic metastatic lesions are again noted. Electronically signed by: Gary Marroquin M.D. 04/19/2018 8:41 AM Dictated Date/Time: 04/19/2018 8:39 AM
--- NOTE | 2018-04-19 08:47 | DIAGNOSTIC IMAGING REPORT ---
CERVICAL SPINE FIVE VIEWS CLINICAL HISTORY: Neck pain. Right upper extremity radiculopathy. FINDINGS: AP, lateral, bilateral oblique, and odontoid views of the cervical spine are obtained. No prior studies are available for comparison at the time of dictation. The skeletal structures are osteopenic. There is no radiographic evidence of fracture or malalignment involving the cervical spine. Vertebral body height and alignment are maintained. There is straightening of the cervical lordosis with mild reversal centered at C4-C5. The spinolaminar line is preserved. The odontoid process and lateral masses appear intact as seen on the open-mouth view. The atlantodental articulation appears maintained. There is moderate disc space narrowing and endplate sclerosis seen at C6-C7. A large posterior disc osteophyte complex at this level likely contributes to acquired compromise of the central canal. Only mild disc space narrowing is seen at the remaining cervical levels. Right-sided neural foraminal stenosis is suggested at C6-C7 on the oblique views. The prevertebral soft tissues are normal in appearance. The partially imaged apical lung parenchyma is grossly clear. IMPRESSION: 1. No acute bony abnormality is seen involving the cervical spine. 2. Osteopenia and spondylotic change as above, greatest at C6-C7. See discussion. Dictated: 04/19/2018 8:31 AM Transcribed: 04/19/2018 8:47 AM Clint Electronically signed by: Humberto Crane M.D. 04/19/2018 8:55 AM Dictated Date/Time: 04/19/2018 8:31 AM
[2018-04-19 09:59] VITALS: BP 123/79; PULSE 67; O2SAT 94
[2018-04-19] MEDS ORDERED: HYDR-5688 PO (10:15)
== END 2018-04-19 10:39 | disposition home or self-care (01) ==
LOC: C.EDB 06:39
DX: G89.3 Neoplasm related pain (acute) (chronic) (principal); C61 Malignant neoplasm of prostate; C79.51 Secondary malignant neoplasm of bone; E78.5 Hyperlipidemia, unspecified; I10 Essential (primary) hypertension; N40.1 Benign prostatic hyperplasia with lower urinary tract symptoms; Z79.899 Other long term (current) drug therapy; Z88.8 Allergy status to other drugs, medicaments and biological substances

== ENCOUNTER → 2018-07-15 | Outpatient (CLI) | payer OTHER ==
[~2018-07-15] MED LIST changes: +BRIM0.2S OPB; -CIPR-255 PO; +OMEP20CA9 PO; +OXYC1CAP5 PO; -TMPOPS15 OPB
--- NOTE | 2018-07-15 10:45 | DIAGNOSTIC IMAGING REPORT ---
R HUMERUS MIN 2 VIEWS ROUTINE CLINICAL HISTORY: 72 years-old Male presenting with C61, right arm tingling. TECHNIQUE: Frontal and lateral views of the right humerus were obtained. COMPARISON: None. FINDINGS: Glenohumeral and elbow joints grossly congruent. No acute fracture or malalignment. No advanced degenerative change. No radiographic soft tissue abnormality. IMPRESSION: No acute osseous injury. Electronically signed by: Deric Rodriguez M.D. 07/15/2018 10:44 AM Dictated Date/Time: 07/15/2018 10:43 AM
--- NOTE | 2018-07-15 10:49 | DIAGNOSTIC IMAGING REPORT ---
RIGHT SHOULDER 3 VIEWS HISTORY: Right shoulder pain. COMPARISON: Right shoulder 520 12/31/2017. FINDINGS: No fracture or dislocation within the right shoulder. The right clavicle is intact. Soft tissues are unremarkable. No radiopaque foreign bodies. A few scattered osteoblastic metastatic lesions seen within the distal clavicle and right ribs are again noted. IMPRESSION: 1. No acute fracture or dislocation within the right shoulder. 2. No change in the scattered osteoblastic metastatic lesions. Electronically signed by: Gary Marroquin M.D. 07/15/2018 10:47 AM Dictated Date/Time: 07/15/2018 10:43 AM
== END | disposition home or self-care (01) ==
LOC: C.RAD 09:49
PROVIDERS: ATTEND Nurse Practitioner Family
DX: C61 Malignant neoplasm of prostate (principal)